=== PATIENT | female | born 1940 | race Caucasian/White ===

== ENCOUNTER 2016-10-23 17:40 | Emergency (ER) | payer MEDICARE, OTHER ==
[~2016-10-23] VITALS: Ht 154.9 cm; Wt 100.0 kg
[~2016-10-23 17:40] MED LIST: ASPI81TA2 PO; ATOR40TA64 PO; BUME1TAB17 PO; CITA20TA9 PO; GLYB1TAB3 PO; INSU100V8 SQ; LABE100T PO; LABE200T PO; LOSA1TAB56 PO; POTA-12 PO
--- OUTSIDE RECORDS SUMMARY | 2016-10-23 17:43 | XMS REPORT | Continuity of Care Document ---
Author Author [facility], [employer] Organization [facility] Address Unknown Phone Unavailable Allergies Active Description Code Type Severity Reaction Onset Reported/Identified Relationship to Patient Clinical Status Yes amlodipine [id number] Drug Allergy Unknown N/A 10/18/2012 Yes codeine [id number] Drug Allergy Unknown N/A 10/18/2012 Medications Problems Date Dx Coded Attending Type Code Diagnosis Diagnosed By 10/18/2012 Ot 793.89 02/26/2014 SALOMON GONZALEZ MD 455.3 EXT HEMORRHOID W/O COMPL 02/26/2014 SALOMON GONZALEZ MD 562.10 DIVERTICULO COLON NO HEM 02/26/2014 SALOMON GONZALEZ MD V76.51 SCREENING MAL ALPHONSE COLON 11/03/2014 Ot 793.81 11/03/2014 Ot V76.12 11/03/2014 Ot 793.81 11/06/2014 Ot 793.81 11/06/2014 Ot V76.12 11/06/2014 Ot 793.81 11/28/2014 Jamilah Gonzalez Ot 611.79 11/28/2014 Jamilah Gonzalez Ot V76.12 Procedures Code Description Performed By Performed On G0121 COLON CA SCRN NOT HI RSK IND SALOMON GONZALEZ MD 02/26/2014 J3010 FENTANYL CITRATE INJECITON SALOMON GONZALEZ MD 02/26/2014 Results Encounters ACCT No. Visit Date/Time Discharge Status Pt. Type Provider Facility Loc./Unit Complaint [id number] 02/26/2014 07:15:00 02/26/2014 10:13:00 DIS Outpatient SALOMON GONZALEZ MD [facility] [place]
[2016-10-23 17:50] VITALS: Ht 154.9 cm; Wt 100.0 kg
[2016-10-23] MEDS ORDERED: METF500T4 PO (17:55)
[2016-10-23] MEDS ORDERED: LABE300T PO (17:56)
[2016-10-23] MEDS ORDERED: POTA-12 PO (17:58)
[2016-10-23] MEDS ORDERED: BUME1TAB17 PO (17:59)
--- NOTE | 2016-10-23 18:06 | NUR ---
PROVIDER ENMANUEL GR IN ROOM W/ PT.
[2016-10-23] MEDS ORDERED: INSU3INS3 SQ (18:07)
--- NOTE | 2016-10-23 18:07 | ERPDOC ---
Departure Disposition Decision Date: Oct 23, 2016 Disposition Decision Time: 19:55 Disposition: 01 DISCHARGED HOME, SELF-CARE Impression Impression Impression: Primary Impression: Closed left humeral fracture Encounter type: initial encounter Humerus Location: surgical neck Fracture morphology: unspecified fracture morphology Fracture alignment: displaced Qualified Codes: S42.212A - Unspecified displaced fracture of surgical neck of left humerus, initial encounter for closed fracture Additional Impressions: Nasal bone fracture Encounter type: initial encounter Fracture type: closed Qualified Codes: S02.2XXA - Fracture of nasal bones, initial encounter for closed fracture Head injury Encounter type: initial encounter Qualified Codes: S09.90XA - Unspecified injury of head, initial encounter Fall Encounter type: initial encounter Qualified Codes: W19.XXXA - Unspecified fall, initial encounter Severity: Moderate Condition: Improved Seen By: Mid-level only Referrals: TITI HONEYCUTT DO (Family) JAXON SARMIENTO MD Patient Instructions: Head Injury (ED), Nasal Fracture (ED), Proximal Humerus Fracture (ED) Problems/Meds/Labs Reviewed?: Yes Medications reviewed and manag: Yes Additional Instructions: Wear shoulder immobilizer as instructed. You may take norco 5/325mg, 1-2 tabs every 4-6 hours as needed for pain. Ice upper left arm as instructed. Call Dr. Sarmiento's office in the morning and let them know we spoke with him and he was to set up an appointment in [place] with Dr. Arcadio Mejia for you. Follow with an ENT of your choice in 2 weeks for follow up on nasal bone fracture. Follow treatment plan. Follow up care ordered?: Yes Mental Status: Alert, Oriented Scripts Hydrocodone/Acetaminophen ([place] 5-325 Tablet) 5-325 Tablet 1-2 TAB PO Q4-6HPRN Y for PAIN, #30 TAB Prov: GENESIS LYON UTILITY BILL COMPLAINTS INVESTIGATOR 10/23/16 HPI - Fall/Injury General Stated Complaint: FALL Time Seen by Provider: 18:06 Source: patient HPI - Fall/Injury Initial Comments 75 YO F brought to ED via EMS after tripping and falling in parking lot. Patient says she was trying to show daughter how to jump start a car when she tripped over parking lot bumper. Patient says she fell forward striking forehead /face and striking left shoulder. Patient having left shoulder pain, facial contusions and nosebleed with fall. Patient denies LOC, dizziness, neck/back pain or other injuries. Pain Scale: Now: 7/10 (left shoulder) Injuries/Pain Location: head, upper extremity Context: tripped Loss of Consciousness: no loss of consciousness Associated Symptoms: DENIES: abdominal pain, chest pain, confusion, dizziness, lightheadedness, muscle spasms, nausea/vomiting, neck pain, ringing in ears, seizures, shortness of breath, slurred speech, vision changes Allergies: Coded Allergies: codeine (Verified Allergy, Unknown, 07/20/15) Past History Patient Surgical History Rt knee arthroscopy - lat/med meniscectomy May, 2004 Colonoscopy - December, Right lumpectomy 1967 - benign calcium deposit removed from left breast (around 2004) Hernia repair -1967 Hysterectomy at age 34 Appendectomy age 15 Tonsillectomy age 4 1945 Past Medical History Metabolic: diabetes, hypertension Cardiac: CAD Respiratory: pneumonia, DENIES: asthma Female: DENIES: renal insufficiency Neurological: CVA Musculoskeletal: osteoarthritis Psychological: DENIES: depression Surgical History General: appendix, tonsils Reproductive/: hysterectomy Joint: knee Family History Family PMH: FOUND: hypertension Vaccines Hx Influenza Vaccination: Yes (October 2014 ) Hx Pneumococcal Vaccination: Yes Social History Sexuality: other Current Occupational Status: retired Review of Systems Constitutional Constitutional: DENIES: chills, dizziness, fever, weakness Eyes General: DENIES: erythema, exudate Lids/Accessories: erythema (and ecchymosis), swelling Vision: DENIES: blurring ENMT Ears: DENIES: pain Sinuses: DENIES: congestion, rhinorrhea Mouth/Throat: DENIES: sore throat Cardiovascular Cardiac: DENIES: chest pain, murmur Rhythm/Rate: DENIES: palpitations Pulmonary Respiratory: DENIES: cough, dyspnea GI Upper Abdomen: DENIES: nausea, pain, vomiting Lower Abdomen: DENIES: diarrhea, pain General: DENIES: dysuria, pain Musculoskeletal General: joint pain, pain, see HPI, tenderness Integumentary Skin: DENIES: itching, rash Neurological General: DENIES: ataxia, change in strength, numbness, paralysis/paresis, weakness Psychiatric Psychiatric: DENIES: anxiety, depression, nervousness Physical Exam General General Nourishment: well nourished, well developed, adult General Body Habitus: well groomed Vitals and Pain First Documented Vital Signs Date Time Temp Pulse Resp B/P Pulse Ox O2 Delivery O2 Flow Rate FiO2 10/23/16 17:50 99.1 65 24 185/90 92 Room Air Weight: Kilograms: Height (feet): 5 Height (inches): 0.00 Triage Pain Scale: Eyes (brief) Eyes Brief: found: EOMI, PERRL Eyes Abnormal Movement: NOT FOUND: nystagmus Eyes Detail : Location: Bilateral Pupils: FOUND 4 mm, FOUND Reactivity Normal Eyelids: FOUND Raccoon eyes, FOUND swelling (under eyes) Comments No entrapment of eyes or deviation of gaze. ENMT Ear/Canal/Mastiod: NOT FOUND: blood, discharge Nose: FOUND: bleeding, other (swelling and ecchymosis over nasal bone), NOT FOUND: septal defect, septal hematoma Mouth/Dental/Tongue: FOUND: mucosa moist, NOT FOUND: loose teeth, tender teeth Pharynx: NOT FOUND: displacement, posterior drainage, uvular deviation Jaw: NOT FOUND: tenderness, trismus Face: NOT FOUND: sinus tenderness Head: symmetric Scalp: NOT FOUND: Claros's sign, abrasion, contusion, erythema, laceration Forehead: contusion (medial forehead with abrasion) Neck (brief) Neck: FOUND: trachea midline, NOT FOUND: adenopathy, tenderness, thyromegaly Respiratory (brief) Respiratory: FOUND: clear all hunter, equal bilaterally, symmetrical Cardiovascular (brief) Cardiac: FOUND: regular rate, regular rhythm Musculoskeletal Joint #1: Side: Left Joint: shoulder Joint Findings: FOUND: ROM limited (due to pain), pain (pain over AC joint and proximal humerus) Comments Patient has cap refill <3 seconds in finger of left hand with good sensation to distal finger tips. Joint #2: Side: Left Joint: elbow, wrist, hip, knee, ankle Joint Findings: NOT FOUND: deformity, discoloration, instability, pain, swelling Joint #3: Side: Right Joint: shoulder, elbow, wrist, hip, knee, ankle Joint Findings: NOT FOUND: deformity, discoloration, instability, pain, swelling Back: NOT FOUND: spine point tenderness, tenderness Integumentary (brief) Integumentary Brief: FOUND: dry, pink, warm Neurologic Mental Status: FOUND: alert, oriented Motor : Motor Side: bilateral Motor Location: printer apprentice strength Motor Degree: 5 Sensation: FOUND: soft touch intact x4 ext Psychiatric (brief) Psychiatric Brief: FOUND: normal affect Differential Diagnoses Considering: Concussion, Contusion, Epidural Hematoma, Dislocation, Fracture, Sprain, Strain, Subdural Hematoma Progress Results/Orders Orders Procedure Category Date Status Time Iv Lock (Ed Only) EDM 10/23/16 Transmitted 18:14 Morphine Sulfate PHA 10/23/16 Complete (Morphine) 18:15 Ondansetron Inj PHA 10/23/16 Complete (Zofran) 18:15 Ct Head W/O Contrast CT 10/23/[address] Maxillofacial W/O CT 10/23/16 Resulted Contrast Shoulder Left 2-3 RAD 10/23/16 Resulted Views Morphine Sulfate PHA 10/23/16 Complete (Morphine) 20:00 Premade Splint EDM 10/23/16 Transmitted 19:57 Hydrocodone/Apap PHA 10/23/16 Complete 5/325 Prepack ([place] 5 20:00 Medications Current ED Medications Morphine Sulfate (Morphine) 4 mg O ONCE IV Last administered on 10/23/16 20:06 ; Start 10/23/16 at 18:15; Stop 10/23/16 at 18:16; Status DC Ondansetron HCl (Zofran) 4 mg O ONCE IV Last administered on 10/23/16 18:48; Start 10/23/16 at 18:15; Stop 10/23/16 at 18:16; Status DC Morphine Sulfate (Morphine) 4 mg O ONCE IV Last administered on 10/23/16 18:50 ; Start 10/23/16 at 20:00; Stop 10/23/16 at 20:01; Status DC Acetaminophen/ Hydrocodone Bitart (NORCO 5 (PrePack)) 1 pack O ONCE SENT HOME Last administered on 10/23/16 20:30; Start 10/23/16 at 20:00; Stop 10/23/16 at 20: 01; Status DC Progress Progress Patient reports improvement in pain after morphine. States pain is well controlled at this time. Declines additional pain medication. I discussed CT and x-ray results with patient and her daughter. Patient declines antibiotic for nasal bone fracture. I discussed conversation I had with Dr. Sarmiento with patient and her daughter. Patient and her daughter verbalized understanding of treatment plan, follow up in the morning with Dr. Sarmiento's office and return precautions. I discussed with patient and her daughter that patient's eyes most likely will swell shut due to nasal bone fracture and contusion to forehead. Daughter states she will stay with patient to assist her as needed. Consult/PCP Consult/PCP : Physician Contacted: Dr. Sarmiento Time Called: 19:41 Type of discussion: Phone Consult/PCP Discussion Details I discussed patient's HPI, PMH, x-rays and that patient is neurovascularly intact with Dr. Sarmiento. Dr. Sarmiento will look at x-ray and call back. Dr. Sarmiento said patient should be placed in a shoulder immobilizer and to call his office tomorrow he will make an appointment with Landry Mejia in [place] for patient. Xray Xray : Xray: Shoulder L (displaced proximal humeral fracture( Dr. Coker)) CT CT #1: CT: Head no contrast (no intrcranial hemorrhage. Large frontal extracranial hematoma) Interpretation: Faxed Report CT #2: CT: Other (maxillofacial) Interpretation: Abnormal (nasal bone fracture), Faxed Report GENESIS LYON UTILITY BILL COMPLAINTS INVESTIGATOR Oct 23, 2016 18:07
[2016-10-23] MEDS ORDERED: CHOL100092 PO (18:08)
[2016-10-23] MEDS ORDERED: ASCO10007 PO (18:08)
[2016-10-23] MEDS ORDERED: VITA80008 PO (18:09)
[2016-10-23] MEDS ORDERED: PLEXUS SUPPLEMENTS PO (18:13)
[2016-10-23] MEDS ORDERED: ONDANSETRON 4mg/2ml INJECTION IV ONE (18:15)
[2016-10-23] MEDS ORDERED: MORPHINE SULFATE 4 MG SYRINGE IV ONE ×2 (18:15→20:00)
--- OUTSIDE RECORDS SUMMARY | 2016-10-23 18:25 | XMS REPORT | Continuity of Care Document ---
Author Author [facility], [employer] Organization [facility] Address Unknown Phone Unavailable Allergies Active Description Code Type Severity Reaction Onset Reported/Identified Relationship to Patient Clinical Status Yes amlodipine [id number] Drug Allergy Unknown N/A 10/18/2012 Yes codeine [id number] Drug Allergy Unknown N/A 10/18/2012 Medications Problems [...] Status Pt. Type Provider Facility Loc./Unit Complaint [id number] 02/26/2014 07:15:00 02/26/2014 10:13:00 DIS Outpatient SALOMON GONZALEZ MD [facility] [place]
--- NOTE | 2016-10-23 18:50 | NUR ---
XRAY PT GONE TO XRAY VIA COT.
--- NOTE | 2016-10-23 19:20 | NUR ---
XRAY PT BACK FROM XRAY VIA CART.
[2016-10-23 19:40] VITALS: TEMP 99.1
[2016-10-23] MEDS ORDERED: HYDROCODONE/APAP 5/325 (PrePack) SENT HOME ONE (20:00)
[2016-10-23] MEDS ORDERED: HYDR-4246 PO (20:04)
[2016-10-23 20:38] VITALS: BP 141/61; PULSE 68; RESP 20; O2SAT 93
--- NOTE | 2016-10-23 20:38 | NUR ---
DISCHARGE PT GIVEN INSTRUCTIONS FOR NASAL FX HEADINJURY AND SHOULDER FX W/ RX AND TAKE HOME PREPACK OF NORCO 5. PT VERBALIZED UNDERSTANDING AND SIGNED FORM W/ PAIN 12/24. PT LEFT ER ALERT, VS CHARTED IN NO ACUTE DISTRESS AMBUALTORY TO WHEELCHAIR AND P.O.V. W/O CHANGE.
--- NOTE | 2016-10-23 22:06 | DI ---
Indication: ITS.REASON: fell, struck head and face PROCEDURE: CT HEAD W/O CONTRAST: Encounter: Initial Comparison: None Technique: Axial CT images through the head were performed without contrast. Iterative Reconstruction dose reducing technique was utilized. FINDINGS: The ventricles are of normal size, shape, and configuration for the patient's age. There is no evidence of acute intracranial hemorrhage, midline displacement, or mass effect. There are scattered areas of low attenuation in the white matter which most likely represent changes of chronic microvascular ischemia. The CT attenuation of the brain parenchyma is otherwise normal within the cerebellum, brain stem, and cerebral hemispheres. The tympanic cavities and mastoid air cells are free of appreciable disease. Displaced nasal arch fractures. Very large frontal scalp hematoma and laceration. IMPRESSION: Nasal arch fractures. No acute intracranial hemorrhage. There is a preliminary report by [facility]. .
--- NOTE | 2016-10-23 22:08 | DI ---
Indication: ITS.REASON: struck face with fall PROCEDURE: CT MAXILLOFACIAL W/O CONTRAST: Encounter: Initial Comparison: None Technique: Axial noncontrast CT images through the mid face were performed with coronal and sagittal two-dimensional reformats. Automated Exposure Control and Iterative Reconstruction dose reducing techniques were utilized. Findings: Displaced nasal arch fractures. Large frontal scalp hematoma and laceration. No additional acute maxillofacial fracture identified. Impression: Nasal arch fractures. There is a preliminary report by [facility]. .
--- NOTE | 2016-10-23 22:09 | DI ---
Indication: ITS.REASON: fall, pain moving shoulder PROCEDURE: SHOULDER LEFT 2-3 VIEWS: Encounter: Initial Comparison: None Findings: There is a comminuted displaced fracture of the surgical neck of left humerus with fracture lines extending into the greater and lesser tuberosity. No additional acute fracture or dislocation seen. Impression: Closed posttraumatic fractures of the left humeral head and neck. .
== END 2016-10-23 20:38 | disposition home or self-care (01) ==
LOC: ED 17:40
DX: S42.212A Unspecified displaced fracture of surgical neck of left humerus, initial encounter for closed fracture (principal); S02.2XXA Fracture of nasal bones, initial encounter for closed fracture; S00.83XA Contusion of other part of head, initial encounter; W01.0XXA Fall on same level from slipping, tripping and stumbling without subsequent striking against object, initial encounter; Y93.89 Activity, other specified; Y92.481 Parking lot as the place of occurrence of the external cause; Y99.8 Other external cause status
CPT/HCPCS: 70450; 70486; 73030; 96374; 96375; 96376; 99284; J2405; L3650

== ENCOUNTER → 2016-11-17 | Outpatient (CLI) | payer MEDICARE, OTHER ==
[~2016-11-17] MED LIST changes: +ASCO10007 PO; +CHOL100092 PO; -GLYB1TAB3 PO; +HYDR-4246 PO; -INSU100V8 SQ; +INSU3INS3 SQ; -LABE100T PO; -LABE200T PO; +LABE300T PO; +METF500T4 PO; +PLEXUS SUPPLEMENTS PO; +VITA80008 PO
[2016-11-17 11:57] LABS: BLOOD, URINE NEGATIVE (NEGATIVE); COLOR,URINE YELLOW (YELLOW); LEUKOCYTE ESTERASE ,URINE NEGATIVE (NEGATIVE); NITRITE,URINE NEGATIVE (NEGATIVE); UROBILINOGEN,URINE 0.2 EU/DL (NORMAL)
== END ==
LOC: LABN.BH 11:45
PROVIDERS: ATTEND Internal Medicine
DX: R50.9 Fever, unspecified (principal)
CPT/HCPCS: 81003; 87086

== ENCOUNTER → 2016-12-01 | Outpatient (CLI) | payer MEDICARE, OTHER ==
[2016-12-01 06:36] LABS: HCT - HEMATOCRIT 29.7 % (36-46); HGB - HEMOGLOBIN 8.8 GM/DL (12-16); MEAN CORPUSCULAR HGB 26.9 UUG (26-34); MEAN CORPUSCULAR HGB CONC(MCHC 29.6 GM/DL (31-37); MEAN CORPUSCULAR VOLUME 90.8 UM3 (80-100); MEAN PLATELET VOLUME 9.4 UM3 (9.4-12.4); RED BLOOD COUNT 3.27 M/MM3 (4.00-5.20)
[2016-12-01 06:47] LABS: ANION GAP 13 MEQ/L (5-15); BUN/CREATININE RATIO 31 RATIO (6-26); CALCIUM 9.4 MG/DL (8.4-10.2); CHLORIDE 103 MEQ/L (98-107); CO2 - CARBON DIOXIDE 23 MEQ/L (22-30); CREATININE 0.7 MG/DL (0.7-1.2); GLOMERULAR FILTRATION RATE 81; GLUCOSE 131 MG/DL (65-110); SODIUM 139 MEQ/L (134-144)
[2016-12-01 07:00] LABS: BAND NEUTROPHILS # 0.2 T/MM3; EOSINOPHILS # (MANUAL) 0.2 T/MM3 (0-0.5); LYMPHOCYTES # (MANUAL) 2.8 T/MM3 (1-4.8); NEUTROPHILS #(MANUAL)-ABSOLUTE 2.8 T/MM3 (1.8-7.7); TOTAL CELLS COUNTED 100 %
[2016-12-01 07:01] LABS: POIKILOCYTOSIS 1+
== END ==
LOC: LABNH.BH 00:40
PROVIDERS: ATTEND Internal Medicine
DX: I82.401 Acute embolism and thrombosis of unspecified deep veins of right lower extremity (principal)
CPT/HCPCS: 36415; 80048; 85007; 85027; P9604

== ENCOUNTER 2017-05-07 11:47 | Inpatient (IN) ==
[2017-05-07] MEDS ORDERED: ONDANSETRON 4 MG/2 ML INJECTION IVP ONE (11:59)
[2017-05-07] MEDS ORDERED: FentaNYL 100 MCG/2 ML INJECTION IVP ONE (11:59)
--- NOTE | 2017-05-07 12:09 | Emergency Department Report ---
Fall HPI - General Chief Complaint: Fall Stated Complaint: fall Time Seen by Provider: 05/07/17 11:58 Source: patient Mode of arrival: EMS Limitations: no limitations - History of Present Illness HPI Narrative: Pt presents after walking into [employer] when her knee "gave out" which she states happens quite frequently only this time she felt a pop and has severe pain. Pt reports landing with her left leg underneath her,. Denies striking her head or neck, or back pain. MD complaint: fall Onset (ago): minute(s) Fall from: standing Fall witnessed: yes, by bystander Place fall occurred: other Loss of consciousness: none Prolonged down time: no Symptoms prior to fall: none Context: other (knee "gave out") Location of injury: other Location of injury - extremities: Left: knee (swelling and pain) Severity: moderate Associated symptoms (after fall): denies - Related Data Home Medications Medication Instructions Recorded Confirmed Aspirin 81 mg PO HS #0 07/20/15 05/07/17 Atorvastatin Calcium 40 mg PO HS #0 07/20/15 05/07/17 Citalopram Hydrobromide 20 mg PO DAILY #0 07/20/15 05/07/17 [Citalopram HBr] Insulin Glargine,Hum.rec.anlog 55 unit SQ HS #0 10/23/16 05/07/17 [Lantus Solostar] Labetalol HCl 300 mg PO BID #0 10/23/16 05/07/17 Metformin HCl 1,000 mg PO BIDWM #0 10/23/16 05/07/17 Potassium Chloride 10 mg PO DAILY #0 10/23/16 05/07/17 Furosemide [Lasix] 40 mg PO DAILY 03/15/17 05/07/17 Losartan [Cozaar] 100 mg PO DAILY 03/15/17 05/07/17 Rivaroxaban [Xarelto] 20 mg PO DAILY 03/15/17 05/07/17 APAP/Diphenhydramine 500/25 2 tab PO HS 05/07/17 05/07/17 [Tylenol Pm] Insulin Aspart [NovoLOG] 10 unit SQ TIDWM 05/07/17 05/07/17 Oxycodone/Acetaminophen 5/325 1 tab PO Q4HR PRN 05/07/17 05/07/17 [Percocet 5/325] Tramadol [Ultram] 50 mg PO Q4-6HR PRN 05/07/17 05/07/17 Ubidecarenone [Coenzyme Q10] 100 mg PO DAILY 05/07/17 05/07/17 Allergies Allergy/AdvReac Type Severity Reaction Status Date / Time codeine Allergy Unknown Light-Heade Verified 03/15/17 09:59 dness Review of Systems All systems: reviewed and negative except as stated Constitutional: Denies: fever, chills Cardiovascular: Denies: chest pain Respiratory: Denies: cough Gastrointestinal: Denies: nausea, vomiting Musculoskeletal: Reports: other (left knee pain) PFSH Patient Stated Medical History Transient Ischemic Attacks ( Yes TIA) Cataracts Yes: Both eyes Hearing Loss Yes: Both ears Myocardial Infarction Yes Pneumonia Yes Diabetes Mellitus Type 2 Yes Gastroesophageal Reflux Yes Disease Hiatal Hernia Yes Hx Kidney Stones Yes Hx Urinary Tract Infection Yes Clotting Problems Yes: Only with surgery Osteoarthritis Yes Depression Yes Post Menopausal Yes Now No Surgical History: Left shoulder repair - Social History Smoking status: Never smoker Physical Exam - Limitations Limitations: no limitations - General General appearance: alert, in no apparent distress (with movement of extremity) - Normal Exams: Head:: Normocephalic without trauma Eyes:: Pupils are PERRLA w/ EOMI Neck:: Full range of motion, without adenopathy Chest/Respirations:: Clear all hunter, with good airflow, and symmetry bilaterally Cardiovascular:: Regular rate and rhythm, without murmur or gallop, Pulses 2+ all extremities Abdomen:: Bowel sounds positive, soft, non-tender, non-distended Integumentary:: No rashes Neurological:: Patient is alert, and oriented Psychiatric:: Patient exhibits, appropriate attention, emotion and affect - Expanded Lower Extremity Exam Knee exam: Present: tenderness, swelling. Absent: normal inspection, full ROM Course - Consultations Consultation #1: Lin Time: 14:50 Consultation #2: Calvin Time: 15:10 Vital Signs Temperature 98.4 F 05/07/17 11:47 Respiratory Rate 20 05/07/17 11:47 Temperature 98.4 F 05/07/17 11:47 Pulse Rate 85 05/07/17 15:30 Respiratory Rate 20 05/07/17 14:59 Blood Pressure 156/69 H 05/07/17 15:30 Pulse Oximetry 99 05/07/17 15:30 Fall - MDM Narrative Medical decision making narrative: Xray reveals probable distal femur fracture, confirmed with CT and Vrad read. Ortho notified will admit to hospitalist. Pt is on Xarelto and will not have surgery for at least 3 days. Labs obtained and reviewed. Pain well controlled at this time. Will place immobilizer as directed by ortho - Differential Diagnosis Likely: compression fracture (knee dislocation, pateller fracture, tibial plateau fracture), concussion with loss of consciousness - Lab Data Attestation: I reviewed the patient's lab results. Result diagrams: 05/07/17 12:19 05/07/17 12:19 Lab Results 05/07/17 05/07/17 Range/Units 12:19 12:19 WBC 9.6 (4.5-11.0) T/MM3 RBC 3.90 L (4.00-5.20) M/MM3 Hgb 10.7 L (12-16) GM/DL Hct 34.0 L (36-46) % MCV 87.2 (80-100) UM3 MCH 27.4 (26-34) UUG MCHC 31.5 (31-37) GM/DL RDW Std Deviation 45.8 (36.9-50.2) FL Plt Count 297 (130-400) T/MM3 MPV 10.5 (9.4-12.4) UM3 Immature Gran % (Auto) 0.4 (0.0-0.5) % Neut % (Auto) 82.1 H (33-66) % Lymph % (Auto) 10.7 L (23-45) % Cascade % (Auto) 4.8 (0-9.0) % Eos % (Auto) 1.8 (0-4) % Baso % (Auto) 0.2 (0-2) % Neut # (Auto) 7.9 H (1.8-7.7) T/MM3 Lymph # (Auto) 1.0 (1-4.8) T/MM3 Cascade # (Auto) 0.5 (0-0.8) T/MM3 Eos # (Auto) 0.2 (0-0.5) T/MM3 Baso # (Auto) 0.0 (0-0.2) T/MM3 Abs Immat Gran (auto) 0.04 H (0.00-0.03) T/MM3 Turbidity < 20 (0-20) Sodium 144 (134-144) MEQ/L Potassium 4.7 (3.6-5) MEQ/L Chloride 104 (98-107) MEQ/L Carbon Dioxide 26 (22-30) MEQ/L Anion Gap 14 (5-15) MEQ/L BUN 24.0 H (7-17) MG/DL Creatinine 0.7 (0.7-1.2) MG/DL GFR Calculation 81 BUN/Creatinine Ratio 34 H (6-26) RATIO Glucose 176 H (65-110) MG/DL Calculated Osmolality 285 H (261-280) MOSM/KG Calcium 9.4 (8.4-10.2) MG/DL Total Bilirubin 0.50 (0.20-1.30) MG/DL Icterus Index < 2 (0-7) AST 22 (14-36) U/L ALT 36 (9-52) U/L Alkaline Phosphatase 103 (38-126) U/L Total Protein 7.2 (6.3-8.2) G/DL Albumin 3.8 (3.5-5.0) G/DL Globulin 3.4 (2.4-3.6) G/DL Albumin/Globulin Ratio 1.1 (1.1-2.2) RATIO Specimen Hemolysis < 15 (0-25) - Radiology Data Attestation: I reviewed the patient's radiology results. Review per Vrad confirmed with CT Disposition Clinical Impression: Femur fracture, left Qualifiers: Encounter type: initial encounter Femur location: distal epiphysis Fracture type: closed Disposition: 02 To [facility] [place] [place] Acute Care Condition: Improved Time of Disposition: 15:39 - Seen By: midlevel
[2017-05-07] MEDS: SALINE FLUSH 10ml SYRINGE IVF PRN ×2 (12:23→21:53)
[2017-05-07] MEDS ORDERED: HYDROMORPHONE 2 MG/ML INJECTION IVP ONE (13:10)
--- NOTE | 2017-05-07 15:49 | History & Physical Report ---
<Kiley Mcnulty - Last Filed: 05/07/17 16:23> History of Present Illness Date: 05/07/17 Chief complaint: knee gave out HPI: Shantal Ayers is a 76 year old woman who was walking outside of [employer] when her left knee gave out, as it frequently does. In fact, she's fallen a number of times. After her knee gave out, she fell to the ground, striking her kneecap on the sidewalk. She felt it pop and wasn't able to get back up to bear weight. She reports that this is an isolated injury and she did not hit her head or lose consciousness. She denies any dizziness/weakness, syncope, chest pain, or dyspnea prior to the fall. She's been in her typical state of health and denies recent fevers/chills, cough/congestion, dysphagia, acute vision changes, nausea/ vomiting, UTI symptoms (though has a hx of recurrent UTIs), abdominal pain, diarrhea or constipation. She has chronic left arm/hand weakness, and it's not certain if this is due to a previous stroke or her history of left humerus fracture in October 2016. 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 After her fall, she was taken to [facility], where she was diagnosed with a left distal femur fracture. Labs showed mild normocytic anemia with hgb of 10.7. Chemistries were unremarkable with the exception of hyperglycemia and mildly elevated BUN/creatinine ratio. Dr. Wan was consulted, and the hospitalist service was contacted for inpatient admission. LOS is expected to be 2 overnights, as she will require surgical fixation of her fracture, pain control , and management of her comorbid conditions of DVT/PE on Xarelto; CAD; CHF; DM2 ; hx of TIA. Review of Systems All systems PM: 10-point ROS was reviewed, no additional remarkable complaints except - Constitutional Constitutional: Present: weight loss (16 lbs). Absent: chills, fever(s) - EENMT Balance: Absent: vertigo Mouth/Throat: Absent: sore throat, changes in swallowing - Cardiovascular Cardiovascular: Absent: chest pain, palpitations Vascular: Absent: pedal edema - Respiratory Respiratory: Absent: cough, dyspnea - Gastrointestinal Gastrointestinal: Absent: abdominal pain, constipation, diarrhea, hematochezia, nausea, vomiting - Genitourinary Genitourinary: Absent: dysuria - Musculoskeletal Musculoskeletal: Present: abnormal gait - Integumentary/Breasts Integumentary: Present: other (abrasion/contusion to left knee). Absent: rash - Neurological Neurological: Present: abnormal gait, frequent falls. 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 Left humerus ORIF 11/01/16. 2. Cardiac catheterization 04/01 - no stents; mild multivessel disease. 3. Echo 04/01/15 - EF 56%; moderate mitral stenosis and mild to moderate mitral regurgitation; mild tricuspid regurgitation; moderate pulmonary hypertension. 4. Hysterectomy 1974. 5. Breast biopsy 1967 - benign. 6. Appendectomy 1955. 7. T&A Family History: Mother - diabetes & CVA - Social History Smoking status: Never smoker Substance use type: does not use Alcohol intake frequency: does not drink Social history: PCP: Dr. Nelson CV: Dr. Erwin Uro: [place] Neuro: Tone Medications Home Medications Medication Instructions Recorded Confirmed Type Aspirin 81 mg PO HS #0 07/20/15 05/07/17 History Atorvastatin Calcium 40 mg PO HS #0 07/20/15 05/07/17 History Citalopram Hydrobromide 20 mg PO DAILY #0 07/20/15 05/07/17 History [Citalopram HBr] Insulin Glargine,Hum.rec.anlog 55 unit SQ HS #0 10/23/16 05/07/17 History [Lantus Solostar] Labetalol HCl 300 mg PO BID #0 10/23/16 05/07/17 History Metformin HCl 1,000 mg PO BIDWM #0 10/23/16 05/07/17 History Potassium Chloride 10 mg PO DAILY #0 10/23/16 05/07/17 History Furosemide [Lasix] 40 mg PO DAILY 03/15/17 05/07/17 History Losartan [Cozaar] 100 mg PO DAILY 03/15/17 05/07/17 History Rivaroxaban [Xarelto] 20 mg PO DAILY 03/15/17 05/07/17 History APAP/Diphenhydramine 500/25 2 tab PO HS 05/07/17 05/07/17 History [Tylenol Pm] Insulin Aspart [NovoLOG] 10 unit SQ TIDWM 05/07/17 05/07/17 History Oxycodone/Acetaminophen 5/325 1 tab PO Q4HR PRN 05/07/17 05/07/17 History [Percocet 5/325] Tramadol [Ultram] 50 mg PO Q4-6HR PRN 05/07/17 05/07/17 History Ubidecarenone [Coenzyme Q10] 100 mg PO DAILY 05/07/17 05/07/17 History Allergies Allergy/AdvReac Type Severity Reaction Status Date / Time codeine Allergy Unknown Light-Heade Verified 03/15/17 09:59 dness Exam Vital Signs: Temperature 98.4 F 05/07/17 11:47 Pulse Rate 85 05/07/17 15:30 Respiratory Rate 20 05/07/17 14:59 Blood Pressure 156/69 H 05/07/17 15:30 Pulse Oximetry 99 05/07/17 15:30 Height/Weight/BMI: Height 1.52 m Weight 88.5 kg - Constitutional Present: no acute distress, well nourished, well developed, obese - Routine HEENT Exam Head: Present: normocephalic Eye: Absent: conjunctival icterus, scleral injection ENT: Present: oropharynx clear - Routine Neck Exam Present: supple - Routine Respiratory Exam Present: CTA bilaterally - Routine Cardiovascular Exam Present: RRR, S1, S2 - Routine Abdominal Exam Present: soft, normoactive bowel sounds, non distended, non tender - Routine Extremities Exam Present: no edema, pulses intact, normal capillary refill, joint swelling (left knee) Comments: left knee is held in flexion - Routine Skin Exam Present: intact, dry, warm, wounds (contusion/abrasion to left knee) - Routine Neurological Exam Present: alert, oriented X3, CN II-XII intact (grossly), normal speech - Routine Psychiatric Exam Present: normal affect, normal thought process, cooperative Results - Labs CBC & Chem 7: 05/07/17 12:19 05/07/17 12:19 Assessment and Plan (1) Femur fracture, left Current visit: Yes Status: Acute DVT Prophylaxis: Lovenox, Xarelto Resuscitation Status: Do Not Resuscitate Assessment and Plan: IMPRESSION Left distal femur fracture Mild normocytic anemia, POA DM2 insulin requiring, with diabetic amyotrophy & proximal neuropathy -hgb A1c was 7.8% on 03/17/17 CHF - systolic, valvular -Echo 04/01/15 - EF 56%; moderate mitral stenosis and mild to moderate mitral regurgitation; mild tricuspid regurgitation; moderate pulmonary HTN CAD Rt DVT; PE - on Xarelto since Nov, 2016 TIA HTN Recurrent UTI Left retinal artery occlusion Depression Mitral valve disorder Obesity, BMI 38.6 PLAN Admit, inpatient status, under the hospitalist service. Dr. Wan has been consulted. Per Bashir Thompson PA-C: patient should be on bedrest (unable to tolerate knee immobilizer); ok to give Lovenox in am; type & screen; plan for sx on 05/09/17 at the earliest. Pain control: IV Dilaudid PRN; continue home Percocet & Tramadol PRN. Monitor telemetry; records requested from Dr. Erwin's office. Check EKG and CXR for op. clearance. Resume home medications including diuretics and excluding Xarelto; monitor fluid status carefully. Monitor blood sugars fasting & 2 hours after meals; continue metformin and insulin. Check vitamin B12 and iron studies - suspect she may need blood transfusion with long bone fracture. Insert Rider for comfort since she is on bedrest. Consult PT/OT postop. PPX: Encourage IS. Lovenox 135 mg x1 in the morning of 05/08/17 - after this will need to determine anticoagulation based on surgical plans. Advanced directives: Requests DNR status. Her daughter in [place] is DPOA-HC. Care will be returned to Dr. Nelson post-discharge. Discussed with attending physician, Bashir Thompson, and nursing staff. Clinic records reviewed. Hospital Course Summary Disclaimer: The visit summary below is not to be considered part of the above Progress Note. Hospital Course: 05/07/17 17:12 IMPRESSION Left distal femur fracture Mild normocytic anemia, POA DM2 insulin requiring, with diabetic amyotrophy & proximal neuropathy -hgb A1c was 7.8% on 03/17/17 CHF - systolic, valvular -Echo 04/01/15 - EF 56%; moderate mitral stenosis and mild to moderate mitral regurgitation; mild tricuspid regurgitation; moderate pulmonary HTN CAD Rt DVT; PE - on Xarelto since Nov, 2016 TIA HTN Recurrent UTI Left retinal artery occlusion Depression Mitral valve disorder Obesity, BMI 38.6 PLAN Admit, inpatient status, under the hospitalist service. Dr. Wan has been consulted. Per Bashir Thompson PA-C: patient should be on bedrest (unable to tolerate knee immobilizer); ok to give Lovenox in am; type & screen; plan for sx on 05/09/17 at the earliest. Pain control: IV Dilaudid PRN; continue home Percocet & Tramadol PRN. Monitor telemetry; records requested from Dr. Erwin's office. Check EKG and CXR for op. clearance. Resume home medications including diuretics and excluding Xarelto; monitor fluid status carefully. Monitor blood sugars fasting & 2 hours after meals; continue metformin and insulin. Check vitamin B12 and iron studies - suspect she may need blood transfusion with long bone fracture. Insert Rider for comfort since she is on bedrest. Consult PT/OT postop. PPX: Encourage IS. Lovenox 135 mg x1 in the morning of 05/08/17 - after this will need to determine anticoagulation based on surgical plans. Advanced directives: Requests DNR status. Her daughter in [place] is DPOA-HC. Care will be returned to Dr. Nelson post-discharge. <John Guy - Last Filed: 05/07/17 17:49> History of Present Illness Date: 05/07/17 [facility] Patient Stated Medical History Transient Ischemic Attacks ( Yes TIA) Cataracts Yes: Both eyes Hearing Loss Yes: Both ears Myocardial Infarction Yes Pneumonia Yes Diabetes Mellitus Type 2 Yes Gastroesophageal Reflux Yes Disease Hiatal Hernia Yes Hx Kidney Stones Yes Hx Urinary Tract Infection Yes Clotting Problems Yes: Only with surgery, IN LEG AND PE Osteoarthritis Yes Anesthesia Reactions Yes: HARD TO WAKE UP Blood Transfusions Yes: AFTER HYSTERECTOMY Depression Yes Post Menopausal Yes Exam Vital Signs: Temperature 98.6 F 05/07/17 16:11 Pulse Rate 96 05/07/17 17:17 Respiratory Rate 16 05/07/17 16:11 Blood Pressure 166/71 H 05/07/17 16:11 Pulse Oximetry 91 05/07/17 16:29 Height/Weight/BMI: Height 1.52 m Weight 89.6 kg Body Mass Index 38.5 Results - Labs CBC & Chem 7: 05/07/17 12:19 05/07/17 12:19 Assessment and Plan Assessment and Plan: 05/07/17 Patient was evaluated by Kiley Mcnulty and myself. Plan was developed in coordination with each other and I'm in agreement with the plan. Patient is a 76-year-old female who felt her knee give out and when she hit the ground on her knee she felt a pop above the kneecap. She was unable to bear weight brought in by EMS. X-ray was obtained which showed distal femur fracture. Past medical history medication allergies social history reviewed, please see note above. Assessment and plan also developed conjunction and I'm in agreement. 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 Dr. Wan has been consulted. Per Bashir Thompson PA-C: patient should be on bedrest (unable to tolerate knee immobilizer); ok to give Lovenox in am; type & screen; plan for sx on 05/09/17 at the earliest. Pain control: IV Dilaudid PRN; continue home Percocet & Tramadol PRN. Monitor telemetry; records requested from Dr. Erwin's office. Check EKG and CXR for op. clearance. Resume home medications including diuretics and excluding Xarelto; monitor fluid status carefully. Monitor blood sugars fasting & 2 hours after meals; continue metformin and insulin. Check vitamin B12 and iron studies - suspect she may need blood transfusion with long bone fracture. Insert Rider for comfort since she is on bedrest. Consult PT/OT postop. PPX: Encourage IS. Lovenox 135 mg x1 in the morning of 05/08/17 - after this will need to determine anticoagulation based on surgical plans. Advanced directives: Requests DNR status. Her daughter in [place] is DPOA-HC. Care will be returned to Dr. Nelson post-discharge. John Guy M.D. Hospital Course Summary Disclaimer: The visit summary below is not to be considered part of the above Progress Note.
[2017-05-07 16:13] VITALS: BMI 38.5
[2017-05-07] MEDS ORDERED: HYDROMORPHONE 2 MG/ML INJECTION IVP PRN (16:40)
[2017-05-07] MEDS ORDERED: TRAMADOL 50 MG TABLET PO PRN (16:42)
[2017-05-07] MEDS ORDERED: BISACODYL 10 MG SUPPOSITORY RECTALLY PRN (16:46)
[2017-05-07] MEDS ORDERED: GLUCOSE ORAL GEL 40% 37.5gm PO PRN (16:49)
[2017-05-07] MEDS: Oxycodone/Acetaminophen 5/325 1 TAB PO PRN (17:21)
[2017-05-07] MEDS: INSULIN ASPART 100unit/ml INJECTION SQ SCH (18:28)
[2017-05-07] MEDS: METFORMIN 500 MG TABLET PO SCH (18:28)
--- NOTE | 2017-05-07 20:59 | Orthopedic Consult Note ---
Orthopedic Consultation HPI - Consultation Info Consult Date: 05/09/17 Attending Physician: John Guy MD Consult Reason: fracture - History of Present Illness 76 yo female who fell going into restoration on 05/07/17. Her knee gave out and she fell directly onto the left knee. She felt a pop and had immediate pain. She was unable to ambulate and was [place] [facility] showed a mildly displaced fx of the left femoral diaphysis with extension distally. She has multiple chronic medical problems including MN, PE and hx of DVT for which she is taking Xarelto. She was admitted by the medical service and will tentatively be placed on the surgical schedule for Monday. Review of Systems - Constitutional Constitutional: Absent: chills, fever(s), headache(s), night sweats - EENT Ears, nose, mouth, throat: Present: other (Dry mouth.). Absent: headaches, head injury - Cardiovascular Cardiovascular: Absent: chest pain, palpitations, syncope, dyspnea on exertion - Respiratory Respiratory: Absent: cough, dyspnea - Gastrointestinal Gastrointestinal: Absent: abdominal pain, change in bowel habits - Genitourinary Genitourinary General: Present: other (Previous UTIs requiring IV antibiotics.) . Absent: chills, fever(s) - Musculoskeletal Musculoskeletal: Present: as per HPI, joint pain, other (Left knee has been bad for years. She fell multiple times over the last few days from the knee giving out.) - Integumentary/Breasts Integumentary: Absent: rash, wounds - Neurological Neurological: Present: abnormal gait, frequent falls, sensory deficit (Left little finger after shoulder surgery earlier this year.). Absent: numbness, paralysis/paresis - Hematologic/Lymphatic Hematologic/Lymphatic: Present: easy bleeding (On Xarelto.) [facility] Patient Stated Medical History Transient Ischemic Attacks ( Yes TIA) Cataracts Yes: Both eyes Hearing Loss Yes: Both ears Myocardial Infarction Yes Pneumonia Yes Diabetes Mellitus Type 2 Yes Gastroesophageal Reflux Yes Disease Hiatal Hernia Yes Hx Kidney Stones Yes Hx Urinary Tract Infection Yes Clotting Problems Yes: Only with surgery, IN LEG AND PE Osteoarthritis Yes Anesthesia Reactions Yes: HARD TO WAKE UP Blood Transfusions Yes: AFTER HYSTERECTOMY Depression Yes Post Menopausal Yes Surgical History: 1. Left humerus ORIF 11/01/16. 2. Cardiac catheterization 04/01 - no stents; mild multivessel disease. 3. Echo 04/01/15 - EF 56%; moderate mitral stenosis and mild to moderate mitral regurgitation; mild tricuspid regurgitation; moderate pulmonary hypertension. 4. Hysterectomy 1974. 5. Breast biopsy 1967 - benign. 6. Appendectomy 1955. 7. T&A - Social History Smoking status: Never smoker Medications Home Medications Medication Instructions Recorded Confirmed Type Aspirin 81 mg PO HS #0 07/20/15 05/07/17 History Atorvastatin Calcium 40 mg PO HS #0 07/20/15 05/07/17 History Citalopram Hydrobromide 20 mg PO DAILY #0 07/20/15 05/07/17 History [Citalopram HBr] Insulin Glargine,Hum.rec.anlog 55 unit SQ HS #0 10/23/16 05/07/17 History [Lantus Solostar] Labetalol HCl 300 mg PO BID #0 10/23/16 05/07/17 History Metformin HCl 1,000 mg PO BIDWM #0 10/23/16 05/07/17 History Potassium Chloride 10 mg PO DAILY #0 10/23/16 05/07/17 History Furosemide [Lasix] 40 mg PO DAILY 03/15/17 05/07/17 History Losartan [Cozaar] 100 mg PO DAILY 03/15/17 05/07/17 History Rivaroxaban [Xarelto] 20 mg PO DAILY 03/15/17 05/07/17 History APAP/Diphenhydramine 500/25 2 tab PO HS 05/07/17 05/07/17 History [Tylenol Pm] Insulin Aspart [NovoLOG] 10 unit SQ TIDWM 05/07/17 05/07/17 History Oxycodone/Acetaminophen 5/325 1 tab PO Q4HR PRN 05/07/17 05/07/17 History [Percocet 5/325] Tramadol [Ultram] 50 mg PO Q4-6HR PRN 05/07/17 05/07/17 History Ubidecarenone [Coenzyme Q10] 100 mg PO DAILY 05/07/17 05/07/17 History Allergies Allergy/AdvReac Type Severity Reaction Status Date / Time codeine Allergy Unknown Light-Heade Verified 03/15/17 09:59 dness Orthopedic Exam Vital signs: Temperature 98.6 F 05/07/17 16:11 Pulse Rate 96 05/07/17 17:17 Respiratory Rate 16 05/07/17 16:11 Blood Pressure 166/71 H 05/07/17 16:11 Pulse Oximetry 91 05/07/17 16:29 - Constitutional General Appearance: Present: alert, orientated x3, cooperative, no acute distress, obese - Respiratory Exam Present: non-labored - Cardiovascular Exam Present: pedal pulses intact Capillary Refill: < 2-3 Seconds - Abdominal Exam Present: soft. Absent: tenderness, distended - Extremities Exam Present: pulses intact, normal capillary refill, joint swelling (left knee. ) Comments: Pt is most comfortable with the leg externally rotated and flexed at the knee. Swelling in the thigh and knee is noted. No abrasions or wounds around the knee. - Integumentary Exam Present: pink, warm, dry, other (Scar is intact over the left shoulder.). Absent: rash, lesions - Neurological Exam Present: other (Moves her toes and reports normal sensation to the feet. Has some reduced sensation left 5th finger since her last shoulder surgery. ) - Labs Result Diagrams: 05/09/17 04:15 05/09/17 04:15 Impression and Recommendation (1) Femur fracture, left Current visit: Yes Qualifiers: Encounter type: initial encounter Femur location: distal epiphysis Fracture type: closed Status: Acute Tentative plan is to fix this Monday since she is on a blood thinner. INR is 1.[address] Wan will meet with Shantal later today to discuss the surgical plan. Follow labs. Hgb a little low. Hospitalist to manage medically. Type and screen NEG. Hospital Course Summary Disclaimer: The visit summary below is not to be considered part of the above Progress Note. Hospital Course: 05/07/17 17:12 IMPRESSION Left distal femur fracture Mild normocytic anemia, POA DM2 insulin requiring, with diabetic amyotrophy & proximal neuropathy -hgb A1c was 7.8% on 03/17/17 CHF - systolic, valvular -Echo 04/01/15 - EF 56%; moderate mitral stenosis and mild to moderate mitral regurgitation; mild tricuspid regurgitation; moderate pulmonary HTN CAD Rt DVT; PE - on Xarelto since Nov, 2016 TIA HTN Recurrent UTI Left retinal artery occlusion Depression Mitral valve disorder Obesity, BMI 38.6 PLAN Admit, inpatient status, under the hospitalist service. Dr. Wan has been consulted. Per Bashir Thompson PA-C: patient should be on bedrest (unable to tolerate knee immobilizer); ok to give Lovenox in am; type & screen; plan for sx on 05/09/17 at the earliest. Pain control: IV Dilaudid PRN; continue home Percocet & Tramadol PRN. Monitor telemetry; records requested from Dr. Erwin's office. Check EKG and CXR for op. clearance. Resume home medications including diuretics and excluding Xarelto; monitor fluid status carefully. Monitor blood sugars fasting & 2 hours after meals; continue metformin and insulin. Check vitamin B12 and iron studies - suspect she may need blood transfusion with long bone fracture. Insert Rider for comfort since she is on bedrest. Consult PT/OT postop. PPX: Encourage IS. Lovenox 135 mg x1 in the morning of 05/08/17 - after this will need to determine anticoagulation based on surgical plans. Advanced directives: Requests DNR status. Her daughter in [place] is DPOA-HC. Care will be returned to Dr. Nelson post-discharge.
[2017-05-07] MEDS ORDERED: LABETALOL 100 MG TABLET PO SCH (21:00)
[2017-05-07] MEDS: ATORVASTATIN 40 MG TABLET PO SCH (21:49)
[2017-05-07] MEDS: APAP/DIPHENHYDRAMINE 500 MG/25 MG TABLET PO SCH (21:49)
[2017-05-07] MEDS: SENNA + DOCUSATE TABLET PO SCH (21:50)
[2017-05-07] MEDS: INSULIN ASPART 100unit/ml INJECTION SQ PRN (21:51)
[2017-05-07] MEDS: INSULIN GLARGINE 100unit/ml INJECTION SQ SCH (21:52)
[2017-05-07] MEDS: LABETALOL 100 MG TABLET PO SCH (22:44)
[2017-05-08] MEDS: Oxycodone/Acetaminophen 5/325 1 TAB PO PRN ×2 (00:27→20:35)
[2017-05-08] MEDS: SALINE FLUSH 10ml SYRINGE IVF PRN (08:24)
[2017-05-08] MEDS: INSULIN ASPART 100unit/ml INJECTION SQ SCH ×3 (08:24→18:28)
[2017-05-08] MEDS: CITALOPRAM 20 MG TABLET PO SCH (08:25)
[2017-05-08] MEDS: FUROSEMIDE 40 MG TABLET PO SCH (08:25)
[2017-05-08] MEDS: METFORMIN 500 MG TABLET PO SCH ×2 (08:25→18:28)
[2017-05-08] MEDS: COENZYME Q-10 200mg TABLET PO SCH (08:25)
[2017-05-08] MEDS: SENNA + DOCUSATE TABLET PO SCH ×2 (08:25→20:35)
[2017-05-08] MEDS: LOSARTAN 100 MG TABLET PO SCH ×2 (08:26→20:35)
[2017-05-08] MEDS: LABETALOL 100 MG TABLET PO SCH ×2 (08:26→20:35)
--- NOTE | 2017-05-08 08:33 | CT Scan Report ---
EXAM: CT femur LT wo con LOCATION OF DICTATION: [place] HISTORY: fall pain fracture COMPARISON: No prior studies available for comparison. TECHNIQUE: Multiple contiguous axial images were obtained of the left femur without contrast. Coronal and sagittal reformatted images were utilized. FINDINGS: Minimally displaced mildly comminuted oblique fractures of the distal left femur. The fracture lines extend to the metadiaphysis of the distal left femur. No additional fractures are identified. There is generalized osteopenia. Mild osteoarthrosis of the left hip joint and moderate to marked osteoarthrosis of the left knee joint. The surrounding soft tissues are normal. Mild calcific atherosclerotic disease is noted. IMPRESSION: 1. Minimally displaced mildly comminuted oblique fractures of the distal left femoral metadiaphysis. 2. Generalized osteopenia. 3. Moderate to marked osteoarthrosis of the left knee joint. .
[2017-05-08] MEDS: POLYETHYL GLYCOL 3350 17gm PACKET PO SCH (08:37)
--- NOTE | 2017-05-08 08:37 | XRay Report ---
EXAM: XR knee LT 3V LOCATION OF DICTATION: [place] HISTORY: fall, knee pain COMPARISON: January 16, 2017 FINDINGS: There is normal alignment of the tibiofemoral and patellofemoral joints. There is no dislocation or subluxation. There is an acute minimally displaced oblique fracture involving the distal left femoral metadiaphysis. There is moderate tricompartmental osteoarthrosis about the left knee joint with joint space narrowing, and marginal osteophytes demonstrated. Normal osseous mineralization. Small suprapatellar joint effusion suggested. IMPRESSION: 1. Acute minimally displaced oblique fracture of the distal left femoral metadiaphysis. 2. Moderate tricompartmental osteoarthritis about the left knee joint. 3. Small suprapatellar joint effusion. .
[2017-05-08] MEDS: ONDANSETRON 4 MG/2 ML INJECTION IVP PRN ×2 (13:50→13:51)
--- NOTE | 2017-05-08 17:09 | XRay Report ---
EXAM: XR chest 1V LOCATION OF DICTATION: [place] HISTORY: preop COMPARISON: March 15, 2017 FINDINGS: The heart size is upper limits normal. The mediastinal configuration is within normal limits. There are no consolidating opacities or pleural effusions. There is no pneumothorax. Open reduction internal fixation of the proximal left humerus where there is noted to be a moderately displaced proximal left humeral fracture. IMPRESSION: No acute cardiopulmonary abnormalities demonstrated. Displaced proximal left humeral fracture with internal hardware. .
--- NOTE | 2017-05-08 18:37 | Progress Note ---
- Date 05/08/17 Subjective: F/U: Left distal femur fracture Doing okay today. Pain stable-does hurt with movements. Breathing stable-not congested or SOA. Does use IS. No chest pressure or pain. Denies nausea or ab pain. No f/c. Objective Vital signs: Temperature 99.0 F 05/08/17 15:51 Pulse Rate 77 05/08/17 16:04 Respiratory Rate 14 05/08/17 15:51 Blood Pressure 111/51 05/08/17 15:51 Pulse Oximetry 96 05/08/17 15:51 Height/Weight/BMI: Height 1.52 m Weight 88.9 kg Body Mass Index 38.5 - Constitutional Present: well nourished, well developed, obese, cooperative - Routine HEENT Exam Head: Present: normocephalic, atraumatic Eye: Present: EOMI, PERRL ENT: Present: mucous membranes moist - Routine Respiratory Exam Present: decreased breath sounds. Absent: rales, rhonchi, wheezes, crackles - Routine Cardiovascular Exam Present: RRR, no murmur - Routine Abdominal Exam Present: soft, non distended, non tender. Absent: normoactive bowel sounds ( decreased ) - Routine Extremities Exam Present: no edema, pulses intact. Absent: cyanosis, clubbing Comments: SCD in place - Routine Musculoskeletal Exam Musculoskeletal: Present: no clubbing or cyanosis, normal strength - Routine Skin Exam Present: dry, warm - Routine Neurological Exam Present: alert, oriented X3, CN II-XII intact, vision grossly intact, hearing grossly intact. Absent: motor deficit, altered mental status - Routine Psychiatric Exam Present: normal affect, normal thought process, cooperative, good insight, good judgment Results - Labs CBC & Chem 7: 05/08/17 04:16 05/08/17 04:16 Assessment and Plan (1) Femur fracture, left Current visit: Yes Status: Acute DVT Prophylaxis: SCD's Resuscitation Status: Do Not Resuscitate Assessment and Plan: Assessment Left distal femur fracture Mild normocytic anemia, POA DM2 insulin requiring, with diabetic amyotrophy & proximal neuropathy -hgb A1c was 7.8% on 03/17/17 CHF - systolic, valvular -Echo 04/01/15 - EF 56%; moderate mitral stenosis and mild to moderate mitral regurgitation; mild tricuspid regurgitation; moderate pulmonary HTN CAD Rt DVT; 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 HGB with decreased - likely need transfusion. Recheck CBC in am. Will hold Lovenox for now due to decreased HGB (it was to be given this am, but ordered for tomorrow am). Metabolic Bone Consult placed. Will check Vit D level. Continue pain control. Anticipate surgery tomorrow. Medically stable at this time. - Time spent with patient Time with patient PN: 25 minutes Hospital Course Summary Disclaimer: The visit summary below is not to be considered part of the above Progress Note. 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 Dr. Wan has been consulted. Per Bashir Thompson PA-C: patient should be on bedrest (unable to tolerate knee immobilizer); ok to give Lovenox in am; type & screen; plan for sx on 05/09/17 at the earliest. Pain control: IV Dilaudid PRN; continue home Percocet & Tramadol PRN. Monitor telemetry; records requested from Dr. Erwin's office. Check EKG and CXR for op. clearance. Resume home medications including diuretics and excluding Xarelto; monitor fluid status carefully. Monitor blood sugars fasting & 2 hours after meals; continue metformin and insulin. Check vitamin B12 and iron studies - suspect she may need blood transfusion with long bone fracture. Insert Rider for comfort since she is on bedrest. Consult PT/OT postop. PPX: Encourage IS. Lovenox 135 mg x1 in the morning of 05/08/17 - after this will need to determine anticoagulation based on surgical plans. Advanced directives: Requests DNR status. Her daughter in [place] is DPOA-HC. Care will be returned to Dr. Nelson post-discharge. 05/08/17 Encourage continued use of IS to help pulmonary toilet. HGB with decreased - likely need transfusion. Recheck CBC in am. Will hold Lovenox for now due to decreased HGB (it was to be given this am, but ordered for tomorrow am). Metabolic Bone Consult placed. Will check Vit D level. Continue pain control. Anticipate surgery tomorrow. Medically stable at this time.
[2017-05-08] MEDS: APAP/DIPHENHYDRAMINE 500 MG/25 MG TABLET PO SCH (20:34)
[2017-05-08] MEDS: ATORVASTATIN 40 MG TABLET PO SCH (20:36)
[2017-05-08] MEDS: INSULIN GLARGINE 100unit/ml INJECTION SQ SCH (20:36)
[2017-05-08] MEDS: INSULIN ASPART 100unit/ml INJECTION SQ PRN ×2 (20:44→20:46)
[2017-05-09] MEDS: SALINE FLUSH 10ml SYRINGE IVF PRN (06:38)
[2017-05-09] MEDS ORDERED: ENOXAPARIN 150 MG/ML INJECTION SQ ONE (07:00)
[2017-05-09] MEDS: INSULIN ASPART 100unit/ml INJECTION SQ SCH ×3 (08:01→16:52)
[2017-05-09] MEDS: SENNA + DOCUSATE TABLET PO SCH ×2 (08:02→21:11)
[2017-05-09] MEDS: POLYETHYL GLYCOL 3350 17gm PACKET PO SCH (08:02)
[2017-05-09] MEDS: COENZYME Q-10 200mg TABLET PO SCH (08:02)
[2017-05-09] MEDS: METFORMIN 500 MG TABLET PO SCH ×2 (08:02→16:52)
[2017-05-09] MEDS: CITALOPRAM 20 MG TABLET PO SCH (08:02)
[2017-05-09] MEDS ORDERED: CEFAZOLIN 1 G INJECTION IVP ONE (08:37)
[2017-05-09] MEDS ORDERED: LR 1,000 ML IV SCH (08:45)
[2017-05-09] MEDS: NS FLUSH BAG 500ml IV PRN (09:09)
--- NOTE | 2017-05-09 09:56 | Anesthesia Preoperative Report ---
Anesthesia Preoperative Record - Date and Time Date: 05/09/17 Preoperative Diagnosis: Femur fracture Proposed Procedure: Left Hip ORIF vs retrograde femur nail NPO Since Date: 05/09/17 NPO Since Time: 00:00 Allergies/Adverse Reactions: Allergies Allergy/AdvReac Type Severity Reaction Status Date / Time codeine Allergy Unknown Light-Heade Verified 03/15/17 09:59 dness - Vital Signs Vital Signs: Temperature 98.6 F 05/09/17 08:05 Pulse Rate 83 05/09/17 08:05 Respiratory Rate 20 05/09/17 08:05 Blood Pressure 130/66 05/09/17 08:05 Pulse Oximetry 97 05/09/17 08:05 Height and Weight: Height 5 ft Weight 89.7 kg Body Mass Index 38.5 - Medications Inpatient Medications: Current Medications Acetaminophen/Diphenhydramine HCl (Tylenol Pm) 2 tab PO HS [facility] Last Admin: 05/08/17 20:34 Dose: 2 tab Atorvastatin Calcium (Lipitor) 40 mg PO HS [facility] Last Admin: 05/08/17 20:36 Dose: 40 mg Bisacodyl (Dulcolax) 10 mg RECTALLY DAILY PRN PRN Reason: Constipation Citalopram Hydrobromide (Celexa) 20 mg PO DAILY [facility] Last Admin: 05/09/17 08:02 Dose: Not Given Coenzyme Q10 (Co Q-10) 100 mg PO DAILY [facility] Last Admin: 05/09/17 08:02 Dose: Not Given Furosemide (Lasix) 40 mg PO DAILY [facility] Last Admin: 05/08/17 08:25 Dose: 40 mg Glucose (Glutose 15) 37.5 gm PO PRN PRN PRN Reason: Hypoglycemia Hydromorphone HCl (Dilaudid) 0.5 mg IVP Q2H PRN PRN Reason: Pain Lactated Ringer's (Lactated Ringers) 1,000 mls @ 50 mls/hr IV .Q20H [facility] Last Admin: 05/09/17 08:36 Dose: 50 mls/hr Insulin Aspart (Novolog) 10 unit SQ TIDWM [facility] Last Admin: 05/09/17 08:01 Dose: Not Given Insulin Aspart (Novolog) 0 unit SQ SS PRN; Protocol PRN Reason: Hyperglycemia Last Admin: 05/08/17 20:46 Dose: 2 unit Insulin Glargine (Lantus) 40 unit SQ HS [facility] Last Admin: 05/08/17 20:36 Dose: 40 unit Labetalol HCl (Normodyne) 300 mg PO BID [facility] Last Admin: 05/08/17 20:35 Dose: 300 mg Losartan Potassium (Cozaar) 100 mg PO HS [facility] Last Admin: 05/08/17 20:35 Dose: 100 mg Magnesium Hydroxide (Mom) 30 ml PO DAILY PRN PRN Reason: Constipation Metformin HCl (Glucophage) 1,000 mg PO BIDWM [facility] Last Admin: 05/09/17 08:02 Dose: Not Given Ondansetron HCl (Zofran) 4 mg IVP Q6H PRN PRN Reason: Nausea &/or vomiting Last Admin: 05/08/17 13:51 Dose: 4 mg Oxycodone/Acetaminophen (Percocet 5/325) 1 - 2 tab PO Q4HR PRN PRN Reason: Pain Last Admin: 05/08/17 20:35 Dose: 2 tab Polyethylene Glycol (Miralax) 17 gm PO DAILY [facility] Last Admin: 05/09/17 08:02 Dose: Not Given Potassium Chloride (K-Dur) 10 meq PO WB [facility] Last Admin: 05/09/17 08:02 Dose: Not Given Senna/Docusate Sodium (Senna Plus Tablet) 1 tab PO BID [facility] Last Admin: 05/09/17 08:02 Dose: Not Given Sodium Chloride (Iv Flush) 10 - 80 ml IVF PRN PRN PRN Reason: Flushing Last Admin: 05/09/17 06:38 Dose: 10 ml Sodium Chloride (Normal Saline) 500 ml IV PRN PRN Last Admin: 05/09/17 09:09 Dose: 500 ml Tramadol HCl (Ultram) 50 mg PO Q4-6HR PRN PRN Reason: Pain Home Medications: Home Medications Medication Instructions Recorded Confirmed Type Aspirin 81 mg PO HS #0 07/20/15 05/07/17 History Atorvastatin Calcium 40 mg PO HS #0 07/20/15 05/07/17 History Citalopram Hydrobromide 20 mg PO DAILY #0 07/20/15 05/07/17 History [Citalopram HBr] Insulin Glargine,Hum.rec.anlog 55 unit SQ HS #0 10/23/16 05/07/17 History [Lantus Solostar] Labetalol HCl 300 mg PO BID #0 10/23/16 05/07/17 History Metformin HCl 1,000 mg PO BIDWM #0 10/23/16 05/07/17 History Potassium Chloride 10 mg PO DAILY #0 10/23/16 05/07/17 History Furosemide [Lasix] 40 mg PO DAILY 03/15/17 05/07/17 History Losartan [Cozaar] 100 mg PO DAILY 03/15/17 05/07/17 History Rivaroxaban [Xarelto] 20 mg PO DAILY 03/15/17 05/07/17 History APAP/Diphenhydramine 500/25 2 tab PO HS 05/07/17 05/07/17 History [Tylenol Pm] Insulin Aspart [NovoLOG] 10 unit SQ TIDWM 05/07/17 05/07/17 History Oxycodone/Acetaminophen 5/325 1 tab PO Q4HR PRN 05/07/17 05/07/17 History [Percocet 5/325] Tramadol [Ultram] 50 mg PO Q4-6HR PRN 05/07/17 05/07/17 History Ubidecarenone [Coenzyme Q10] 100 mg PO DAILY 05/07/17 05/07/17 History Is Patient on Beta Ifrah?: Yes Beta Ifrah Last Dose Date/Time: 203405/08/17 - Medical History Respiratory: Reports: Pulmonary Embolism (2017) Cardiovascular: Reports: Coronary Artery Disease, Hypertension, Myocardial Infarction Gastrointestional: Reports: Gastroesophageal Reflux Disease, Morbid Obesity Neuro/Musculoskeletal: Reports: Cerebrovascular Accident, Muscle Weakness (left arm), Paralysis (Left arm and leg) Renal/Endocrine: Reports: Diabetes Mellitus Type 1 - Surgical History HEENT Surgeries: Reports: Eye Surgery (Both cataracts removed, 2004), Tonsillectomy (194) Cardiac Surgeries/Treatments: Reports: Cardiac Catheterization GI Surgery/Treatments: Reports: Appendectomy, Hernia Repair Musculoskeletal Surgery/Tx: Reports: Joint Surgery (ARTHROSCOPIC), Orthopedic Surgery Reproductive Surgery/Treatment: Reports: Hysterectomy, Tubal Ligation Anesthesia Reactions: None (slow to wake) Hx Family Anesthesia Reaction: No History of Motion Sickness: No - Social History Smoking Status: Never smoker Substance Use Type: does not use - Pertinent Findings Laboratory: CBC and BMP 05/09/17 04:15 05/09/17 04:15 BMP 10/24/17 04:15 Sodium 135 Potassium 5.2 H Chloride 100 Carbon Dioxide 27 BUN 45.0 H Creatinine 1.2 D Glucose 119 H Calcium 9.1 EKG: Sinus Rhythm - Physical Exam Respiratory Exam: Present: lungs clear, bilateral breath sounds equal Cardiovascular Exam: Present: regular rate and rhythm, no murmur - Airway Assessment Mallampati Score: II TMD: 2 Fingerbreadths Neck Extension: fair Teeth: poor dentation Overall Assessment: may be difficult intubation - ASA ASA Score: 3 - Plan Anesthesia: General Inhalation Gases - Discussion Discussion: Discussed risks/options/alternatives of anesthesia and questions answered. Patient consents. Nursing pain assessment noted. Present for Discussion: children Attestation Statement: Prior to the delivery of any anesthetic medication, I examined the patient, developed the plan, obtained the patient's consent and discussed the risk and benefits of the procedure with the patient/guardian. - Additional Information Seen by Anesthesia: Yes
[2017-05-09] MEDS ORDERED: FentaNYL 100 MCG/2 ML INJECTION ONE (10:10)
[2017-05-09] MEDS ORDERED: PROPOFOL 20 ML ONE (10:10)
[2017-05-09] MEDS ORDERED: HYDROMORPHONE 2 MG/ML INJECTION ONE (10:47)
[2017-05-09] MEDS: LABETALOL 100 MG TABLET PO SCH ×2 (11:31→21:10)
[2017-05-09] MEDS ORDERED: ROCURONIUM 50 MG/5 ML INJECTION IVP ONE (11:42)
--- NOTE | 2017-05-09 13:18 | Remote Fluorsocopy Report ---
Indication: ORIF LEFT DISTAL FEMUR RF femur LT: Comparison: None Technique: Patient showed a series of C-arm films during long intramedullary heri placement to stabilize the femoral fracture. Findings: Alignment is satisfactory. Long heri extends from the knee to the proximal femur. Multiple screws and cerclage wires are in place. Impression: Series of C-arm films during intramedullary heri placement to stabilize a fracture of the distal femur. Alignment is satisfactory. Fluoroscopy time four minutes .
--- NOTE | 2017-05-09 13:58 | Anesthesia Postoperative Note ---
- Date and Time Date: 05/09/17 Time: 13:58 - Status Patient Participated in Evaluation: Patient Participated in Person Vital Signs: Temperature 97.5 F 05/09/17 13:45 Pulse Rate 93 05/09/17 13:50 Respiratory Rate 16 05/09/17 13:50 Blood Pressure 140/63 H 05/09/17 13:50 Pulse Oximetry 93 05/09/17 13:50 Respiratory Function: Airway Patent Cardiovascular Function: Regular Pulse EKG: Sinus Rhythm Mental Status: Alert and Oriented Hydration: Taking PO Fluids Complications During Recover: None Apparent - Follow-Up Instructions Instructions: Per Surgeon
[2017-05-09] MEDS: NOZIN NASAL SWAB NAS SCH ×2 (14:06→21:11)
[2017-05-09] MEDS: FUROSEMIDE 40 MG TABLET PO SCH (14:44)
--- NOTE | 2017-05-09 15:27 | Progress Note ---
<Kiley Mcnulty D - Last Filed: 05/09/17 15:19> - Date 05/09/17 Subjective: Shantal was seen postop. She was drowsy but awakened appropriately. She denies dyspnea, chest pain, n/v, weakness, or dizziness. She denied pain to her leg. Objective Vital signs: Temperature 97.6 F 05/09/17 14:16 Pulse Rate 95 05/09/17 14:45 Respiratory Rate 20 05/09/17 14:45 Blood Pressure 156/67 H 05/09/17 14:45 Pulse Oximetry 92 05/09/17 14:45 Height/Weight/BMI: Height 1.52 m Weight 89.7 kg Body Mass Index 38.5 - Constitutional Present: no acute distress, well nourished, well developed, morbidly obese - Routine HEENT Exam Eye: Absent: conjunctival icterus ENT: Present: mucous membranes dry - Routine Respiratory Exam Present: CTA bilaterally - Routine Cardiovascular Exam Present: RRR, S1, S2 - Routine Abdominal Exam Present: soft, normoactive bowel sounds, non distended, non tender - Routine Extremities Exam Present: no edema - Routine Musculoskeletal Exam Musculoskeletal: Present: limited range of motion (left knee - dressing in place ; ice bag on top) - Routine Skin Exam Present: intact, dry, pallor, warm - Routine Neurological Exam Present: alert (drowsy), oriented X3 - Routine Psychiatric Exam Present: normal affect, normal thought process, cooperative Results - Labs CBC & Chem 7: 05/09/17 13:29 05/09/17 04:15 Assessment and Plan (1) Femur fracture, left Current visit: Yes Status: Acute Assessment and Plan: Assessment Left distal femur fracture ABLA superimposed on mild normocytic anemia - PRBC x1 unit on 05/09/17 Hyperkalemia (05/09/17) DM2 insulin requiring, with diabetic amyotrophy & proximal neuropathy -hgb A1c was 7.8% on 03/17/17 CHF - systolic, valvular -Echo 04/01/15 - EF 56%; moderate mitral stenosis and mild to moderate mitral regurgitation; mild tricuspid regurgitation; moderate pulmonary HTN CAD Rt DVT; 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 150 ml. She was transfused 1 unit of blood today d/t hgb dropping to 7.5. On recheck it was 8.1. She may need additional transfusion postop. D/W Bashir Thompson - ok to start anticoagulation - will start Xarelto today. K was elevated at 5.2 this morning; mild increase in BUN and creatinine as well. Increase LR to 75 mL/hr, monitoring closely for overload. Monitor I/Os. PT/OT consult placed. Vit. D level pending. BGM under good control. Hospital Course Summary Disclaimer: The visit summary below is not to be considered part of the above Progress Note. Hospital Course: IMPRESSION PLAN Admit, inpatient status, under the hospitalist service. Dr. Wan has been consulted. Per Bashir Thompson PA-C: patient should be on bedrest (unable to tolerate knee immobilizer); ok to give Lovenox in am; type & screen; plan for sx on 05/09/17 at the earliest. Pain control: IV Dilaudid PRN; continue home Percocet & Tramadol PRN. Monitor telemetry; records requested from Dr. Erwin's office. Check EKG and CXR for op. clearance. Resume home medications including diuretics and excluding Xarelto; monitor fluid status carefully. Monitor blood sugars fasting & 2 hours after meals; continue metformin and insulin. Check vitamin B12 and iron studies - suspect she may need blood transfusion with long bone fracture. Insert Rider for comfort since she is on bedrest. Consult PT/OT postop. PPX: Encourage IS. Lovenox 135 mg x1 in the morning of 05/08/17 - after this will need to determine anticoagulation based on surgical plans. Advanced directives: Requests DNR status. Her daughter in [place] is DPOA-HC. Care will be returned to Dr. Nelson post-discharge. 05/09/17 Underwent sx today with EBL of approx. 150 ml. She was transfused 1 unit of blood today d/t hgb dropping to 7.5. On recheck it was 8.1. She may need additional transfusion postop. D/W Bashir Thompson - ok to start anticoagulation - will start Xarelto today. K was elevated at 5.2 this morning; mild increase in BUN and creatinine as well. Increase LR to 75 mL/hr, monitoring closely for overload. Monitor I/Os. PT/OT consult placed. Vit. D level pending. BGM under good control. <Reggie Schwartz D - Last Filed: 05/09/17 17:34> - Date 05/09/17 Objective Vital signs: Temperature 97.6 F 05/09/17 14:16 Pulse Rate 95 05/09/17 16:45 Respiratory Rate 16 05/09/17 16:45 Blood Pressure 135/56 05/09/17 16:45 Pulse Oximetry 95 05/09/17 16:45 Height/Weight/BMI: Height 1.52 m Weight 89.7 kg Body Mass Index 38.5 Results - Labs CBC & Chem 7: 05/09/17 13:29 05/09/17 04:15 Assessment and Plan (1) Femur fracture, left Current visit: Yes Status: Acute Assessment and Plan: Assessment Left distal femur fracture ABLA superimposed on mild normocytic anemia - PRBC x1 unit on 05/09/17 Hyperkalemia (05/09/17) DM2 insulin requiring, with diabetic amyotrophy & proximal neuropathy -hgb A1c was 7.8% on 03/17/17 CHF - systolic, valvular -Echo 04/01/15 - EF 56%; moderate mitral stenosis and mild to moderate mitral regurgitation; mild tricuspid regurgitation; moderate pulmonary HTN CAD Rt DVT; 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 Chart reviewed. Case discussed with Dr Wan and my PLASTER FOREMAN. Care plan developed with my supervision; agree with above. Doing well this evening. Tolerated Sx well. Denies post op pain. No nausea- taking in liquids and food well. Breathing feels okay-not SOA or congested. Still groggy from surgery. Lungs: decreased, no distress CV: regular MSE: awake alert Plan: Monitor blood counts - 1 unit given this morning. Will restart Xarelto- possible restart ASA tomorrow. Encourage deep breathing and IS use. PT/OT initiated. Blood sugars stable (Lantus lower dose than at home - 40 currently vs 55 at home). Blood pressure stable post op - continue to monitor. Time spent with patient care 25 minutes. DVT Prophylaxis: SCD's, Xarelto Resuscitation Status: Do Not Resuscitate Hospital Course Summary Disclaimer: The visit summary below is not to be considered part of the above Progress Note. Addendum entered and electronically signed by Kiley Mcnulty, P[employer] FOREMAN 05/09/17 15: 32: Change IVF to NS at 100 mL/hr.
[2017-05-09] MEDS: NS 1,000 ML IV SCH (15:41)
--- NOTE | 2017-05-09 16:39 | Operative Note ---
DATE OF OPERATION 05/09/2017 PREOPERATIVE DIAGNOSIS Left femoral diaphyseal fracture with distal extension. POSTOPERATIVE DIAGNOSIS Left femoral diaphyseal fracture with distal extension. PROCEDURE Open reduction internal fixation of left femoral diaphyseal fracture. SURGEON Jory Wan MD SOUP MIXER Bashir Thompson PA-C COMPLICATIONS None. ANESTHESIA General. EBL/FLUIDS Please see anesthetic records. DESCRIPTION OF PROCEDURE Mrs. Ayers and her left leg were identified and marked in the preoperative holding area. She was brought back to the operating suite and placed supine on the operating table. She was placed under general anesthesia. The left lower extremity was prepped and draped in my normal sterile fashion. Timeout was performed. Fluoroscopic imaging was used throughout the case. We were able to get very close to anatomic reduction that closed and decided to proceed with intramedullary nailing. A midline anterior incision was made over the patella. A medial parapatellar arthrotomy was then performed. The proximal femur was opened over a guide pen. I then passed a long guidewire past the fracture site and we reamed to a 13. I then placed a 12 x 330 nail and passed the fracture site. There was some displacement and shortening of the fracture site but we decided to lock distally first. I placed four interlocking screws distally using the aiming arm. However, I did not do poke holes. I then did the side that opened up the fracture site. A lateral incision was made approximately 8-10 cm in length. Dissection was carried through the IT band and in the vastus lateralis it was retracted superiorly. The fracture site was easily identified. There was a lateral, somewhat of a butterfly fragment which was displaced and the fracture site itself was shortened. We used a backslap hammer to lengthen the femur and then with a little bit of external rotation the fracture sites keyed in nicely. I then placed two cerclage wires around the fracture sites at this level. They helped reduce the fracture sites anatomically. I then locked the nail proximally using two anterior and posterior screws using perfect [place]ahu[place] technique. Again, these were done through poke holes. Multiple fluoroscopic images were then taken to ensure good hardware placement and fracture reduction. We were very happy with the results. All wounds were thoroughly irrigated and closed in layers with #1 Vicryl deep and 2-0 Vicryl in the superficial tissues. The skin was then closed with a running nylon. A sterile dressing was then placed. She was allowed to awaken from general anesthesia. The drapes were removed. She was taken to the recovery room under the care of Anesthesia. She tolerated the procedure well. There were no complications. NENA
[2017-05-09] MEDS: RIVAROXABAN 20 MG TABLET PO SCH (16:52)
[2017-05-09] MEDS: CEFAZOLIN 2 G in NS 100 ML IV SCH (18:26)
[2017-05-09] MEDS ORDERED: FALL RISK - PHARMACY CONSULT MC ONE (20:16)
[2017-05-09] MEDS: ATORVASTATIN 40 MG TABLET PO SCH (21:10)
[2017-05-09] MEDS: LOSARTAN 100 MG TABLET PO SCH (21:10)
[2017-05-09] MEDS: INSULIN ASPART 100unit/ml INJECTION SQ PRN (21:11)
[2017-05-09] MEDS: INSULIN GLARGINE 100unit/ml INJECTION SQ SCH (21:11)
[2017-05-09] MEDS: APAP/DIPHENHYDRAMINE 500 MG/25 MG TABLET PO SCH (21:11)
[2017-05-09] MEDS: Oxycodone/Acetaminophen 5/325 1 TAB PO PRN (21:12)
[2017-05-10] MEDS: CEFAZOLIN 2 G in NS 100 ML IV SCH (02:24)
[2017-05-10] MEDS: NS 1,000 ML IV SCH ×4 (02:24→22:56)
[2017-05-10] MEDS: SALINE FLUSH 10ml SYRINGE IVF PRN (05:08)
[2017-05-10] MEDS: NOZIN NASAL SWAB NAS SCH ×3 (05:08→20:55)
[2017-05-10] MEDS: Oxycodone/Acetaminophen 5/325 1 TAB PO PRN (06:26)
[2017-05-10] MEDS: METFORMIN 500 MG TABLET PO SCH ×2 (08:53→18:06)
[2017-05-10] MEDS: POLYETHYL GLYCOL 3350 17gm PACKET PO SCH (08:53)
[2017-05-10] MEDS: COENZYME Q-10 200mg TABLET PO SCH (08:53)
[2017-05-10] MEDS: LABETALOL 100 MG TABLET PO SCH ×2 (08:53→20:55)
[2017-05-10] MEDS: INSULIN ASPART 100unit/ml INJECTION SQ SCH ×3 (08:53→18:12)
[2017-05-10] MEDS: FUROSEMIDE 40 MG TABLET PO SCH (08:54)
[2017-05-10] MEDS: SENNA + DOCUSATE TABLET PO SCH ×2 (08:54→20:55)
[2017-05-10] MEDS: CITALOPRAM 20 MG TABLET PO SCH (08:54)
[2017-05-10] MEDS ORDERED: DiphenhydrAMINE 25 MG CAPSULE PO ONE (10:16)
[2017-05-10] MEDS: INSULIN ASPART 100unit/ml INJECTION SQ PRN ×3 (10:33→20:54)
[2017-05-10] MEDS: NS FLUSH BAG 500ml IV PRN (10:34)
--- NOTE | 2017-05-10 11:13 | Orthopedic Progress Note ---
Date: Subjective/Severity of Illness: Shantal states she is feeling okay. She has been mobilizing slow secondary to her WB restrictions of foot flat with no pivoting or twisting. She is not having any pain. She denies CP or SOB. Her Hgb is 7.2, Dr. Schwartz has ordered 1 unit of PRBC's. Orthopedic Objective PO Vital signs: Temperature 98.0 F 05/10/17 07:00 Pulse Rate 71 05/10/17 08:00 Respiratory Rate 20 05/10/17 07:00 Blood Pressure 127/62 05/10/17 07:00 Pulse Oximetry 95 05/10/17 07:00 Height and Weight: Height 5 ft Weight 198 lb 6.656 oz Body Mass Index 38.5 - Constitutional General Appearance: Present: alert, orientated x3, cooperative, no acute distress, obese - Respiratory Exam Present: non-labored - Cardiovascular Exam Present: pedal pulses intact - Abdominal Exam Present: soft. Absent: tenderness, distended - Knee Exam Knee Exam: Absent: painful ROM Comments: dressing intact, moderate serosangenous drainage noted. - Surgical Site Incision: clean, dressing intact, bloody drainage present (only on primary 4X4's , does not bleed through.) - Integumentary Exam Present: pink, warm, dry, other (Scar is intact over the left shoulder.). Absent: rash, lesions - Neurological Exam Present: other (Moves her toes and reports normal sensation to the feet. Has some reduced sensation left 5th finger since her last shoulder surgery. ) - Psychiatric Exam Present: alert - Labs Result Diagrams: 05/10/17 04:10 05/10/17 04:10 Abnormal lab results 05/08/17 05/09/17 05/10/17 Range/Units 04:16 13:29 04:10 RBC 2.61 L (4.00-5.20) M/MM3 Hgb 8.1 L 7.2 L D (12-16) GM/DL Hct 23.3 L (36-46) % MCHC 30.9 L (31-37) GM/DL Neut % (Auto) 69.2 H (33-66) % Lymph % (Auto) 13.6 L (23-45) % [place] % (Auto) 10.2 H (0-9.0) % Eos % (Auto) 6.2 H (0-4) % [place] # (Auto) 1.0 H (0-0.8) T/MM3 Eos # (Auto) 0.6 H (0-0.5) T/MM3 BUN (7-17) MG/DL BUN/Creatinine Ratio (6-26) RATIO Calcium (8.4-10.2) MG/DL Specimen Hemolysis (0-25) Crossmatch (AHG) See Detail 05/10/17 Range/Units 04:10 RBC (4.00-5.20) M/MM3 Hgb (12-16) GM/DL Hct (36-46) % MCHC (31-37) GM/DL Neut % (Auto) (33-66) % Lymph % (Auto) (23-45) % [place] % (Auto) (0-9.0) % Eos % (Auto) (0-4) % [place] # (Auto) (0-0.8) T/MM3 Eos # (Auto) (0-0.5) T/MM3 BUN 43.0 H (7-17) MG/DL BUN/Creatinine Ratio 43 H (6-26) RATIO Calcium 7.7 L D (8.4-10.2) MG/DL Specimen Hemolysis 100 H (0-25) Crossmatch (AHG) H & H 05/08/17 05/09/17 05/09/17 Range/Units 04:16 04:15 13:29 Hgb 8.5 L D 7.5 L D 8.1 L (12-16) GM/DL Hct 27.8 L D 24.5 L D (36-46) % 05/10/17 Range/Units 04:10 Hgb 7.2 L D (12-16) GM/DL Hct 23.3 L (36-46) % Coagulation 05/08/17 05/09/17 Range/Units 04:16 04:15 INR 1.62 H 1.37 H (0.99-1.21) Orthopedic Assessment and Plan (1) Femur fracture, left Status: Acute Qualifiers: Encounter type: initial encounter Femur location: distal epiphysis Fracture type: closed Assessment and Plan: Mobilize with PT/OT continue pain and bowel management special needs caregiver for discharge planning Xarelto for DVT prevention. - Anticoagulation Therapy Anticoagulation: other Hospital Course Summary Disclaimer: The visit summary below is not to be considered part of the above Progress Note. Hospital Course: IMPRESSION PLAN Admit, inpatient status, under the hospitalist service. Dr. Wan has been consulted. Per Bashir Thompson PA-C: patient should be on bedrest (unable to tolerate knee immobilizer); ok to give Lovenox in am; type & screen; plan for sx on 05/09/17 at the earliest. Pain control: IV Dilaudid PRN; continue home Percocet & Tramadol PRN. Monitor telemetry; records requested from Dr. Erwin's office. Check EKG and CXR for op. clearance. Resume home medications including diuretics and excluding Xarelto; monitor fluid status carefully. Monitor blood sugars fasting & 2 hours after meals; continue metformin and insulin. Check vitamin B12 and iron studies - suspect she may need blood transfusion with long bone fracture. Insert Rider for comfort since she is on bedrest. Consult PT/OT postop. PPX: Encourage IS. Lovenox 135 mg x1 in the morning of 05/08/17 - after this will need to determine anticoagulation based on surgical plans. Advanced directives: Requests DNR status. Her daughter in [place] is DPOA-HC. Care will be returned to Dr. Nelson post-discharge. 05/09/17 Underwent sx today with EBL of approx. 150 ml. She was transfused 1 unit of blood today d/t hgb dropping to 7.5. On recheck it was 8.1. She may need additional transfusion postop. D/W Bashir Thompson - ok to start anticoagulation - will start Xarelto today. K was elevated at 5.2 this morning; mild increase in BUN and creatinine as well. Increase LR to 75 mL/hr, monitoring closely for overload. Monitor I/Os. PT/OT consult placed. Vit. D level pending. BGM under good control.
--- NOTE | 2017-05-10 11:41 | Progress Note ---
<Kristan Guzman V - Last Filed: 05/10/17 11:37> - Date 05/10/17 Subjective: Vanessa is seen this morning in follow up. She is currently on 2 liters and has been since surgery. Denies feeling short of breath or chest pain. No GI complaints. Bowels have not yet moved. Hgb 7.2. Objective Vital signs: Temperature 98.0 F 05/10/17 07:00 Pulse Rate 71 05/10/17 08:00 Respiratory Rate 20 05/10/17 07:00 Blood Pressure 127/62 05/10/17 07:00 Pulse Oximetry 95 05/10/17 07:00 Height/Weight/BMI: Height 1.52 m Weight 90 kg Body Mass Index 38.5 - Constitutional Present: no acute distress, well nourished, well developed - Routine HEENT Exam Eye: Present: EOMI ENT: Present: mucous membranes moist, dentition normal - Routine Respiratory Exam Present: CTA bilaterally. Absent: wheezes - Routine Cardiovascular Exam Present: RRR, S1, S2. Absent: murmur - Routine Abdominal Exam Present: soft, normoactive bowel sounds, non distended. Absent: tenderness - Routine Extremities Exam Present: pulses intact - Routine Skin Exam Present: dry, pallor, warm - Routine Neurological Exam Present: alert, oriented X3, CN II-XII intact - Routine Lymphatic Exam Lymphatic: Absent: adenopathy - Routine Psychiatric Exam Present: normal affect, cooperative Results - Labs CBC & Chem 7: 05/10/17 04:10 05/10/17 04:10 Assessment and Plan (1) Femur fracture, left Current visit: Yes Status: Acute Assessment and Plan: Assessment Left distal femur fracture ABLA superimposed on mild normocytic anemia - PRBC x1 unit on 05/09/17 Hyperkalemia (05/09/17) DM2 insulin requiring, with diabetic amyotrophy & proximal neuropathy -hgb A1c was 7.8% on 03/17/17 CHF - systolic, valvular -Echo 04/01/15 - EF 56%; moderate mitral stenosis and mild to moderate mitral regurgitation; mild tricuspid regurgitation; moderate pulmonary HTN CAD Rt DVT; 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 Will transfuse one unit of PRBCs now and continue to follow Hgb routinely. Work on weaning down on oxygen Xarelto was restarted for chronic anticoagulation Blood pressure appears to be well controlled on current regimen, labetalol, Cozaar, Lasix Monitor Accu-Cheks and continue on Lantus 40 units at at bedtime, NovoLog 10 units with meals as well as sliding scale. Encourage work with PT/OT for Post-op strengthening Hospital Course Summary Disclaimer: The visit summary below is not to be considered part of the above Progress Note. Hospital Course: IMPRESSION PLAN Admit, inpatient status, under the hospitalist service. Dr. Wan has been consulted. Per Bashir Thompson PA-C: patient should be on bedrest (unable to tolerate knee immobilizer); ok to give Lovenox in am; type & screen; plan for sx on 05/09/17 at the earliest. Pain control: IV Dilaudid PRN; continue home Percocet & Tramadol PRN. Monitor telemetry; records requested from Dr. Erwin's office. Check EKG and CXR for op. clearance. Resume home medications including diuretics and excluding Xarelto; monitor fluid status carefully. Monitor blood sugars fasting & 2 hours after meals; continue metformin and insulin. Check vitamin B12 and iron studies - suspect she may need blood transfusion with long bone fracture. Insert Rider for comfort since she is on bedrest. Consult PT/OT postop. PPX: Encourage IS. Lovenox 135 mg x1 in the morning of 05/08/17 - after this will need to determine anticoagulation based on surgical plans. Advanced directives: Requests DNR status. Her daughter in [place] is DPOA-HC. Care will be returned to Dr. Nelson post-discharge. 05/09/17 Underwent sx today with EBL of approx. 150 ml. She was transfused 1 unit of blood today d/t hgb dropping to 7.5. On recheck it was 8.1. She may need additional transfusion postop. D/W Bashir Thompson - ok to start anticoagulation - will start Xarelto today. K was elevated at 5.2 this morning; mild increase in BUN and creatinine as well. Increase LR to 75 mL/hr, monitoring closely for overload. Monitor I/Os. PT/OT consult placed. Vit. D level pending. BGM under good control. 10/25/17- entries 1 unit of packed red blood cells today. His hemoglobin is down to 7.2. Will work on weaning down oxygen. The role to restarted. Continue to monitor <Reggie Schwartz - Last Filed: 05/10/17 19:33> - Date 05/10/17 Objective Vital signs: Temperature 98.2 F 05/10/17 11:00 Pulse Rate 81 05/10/17 16:00 Respiratory Rate 18 05/10/17 11:00 Blood Pressure 129/55 05/10/17 11:00 Pulse Oximetry 91 05/10/17 13:26 Height/Weight/BMI: Height 1.52 m Weight 90 kg Body Mass Index 38.5 Results - Labs CBC & Chem 7: 05/10/17 14:22 05/10/17 04:10 Assessment and Plan (1) Femur fracture, left Current visit: Yes Status: Acute Assessment and Plan: Assessment Left distal femur fracture ABLA superimposed on mild normocytic anemia - PRBC x1 unit on 05/09/17 and 05/10 Hyperkalemia (05/09/17) DM2 insulin requiring, with diabetic amyotrophy & proximal neuropathy -hgb A1c was 7.8% on 03/17/17 CHF - systolic, valvular -Echo 04/01/15 - EF 56%; moderate mitral stenosis and mild to moderate mitral regurgitation; mild tricuspid regurgitation; moderate pulmonary HTN CAD Rt DVT; 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 Chart reviewed. Case discussed with CM and my [employer]ER. Care plan developed with my supervision; agree with above. Doing well this evening. Reports pain controlled well-Percocet helping and tolerating the medication without problems. Eating well. No nausea. Passing flatus, but no stool. Breathing without SOA or congestion. Lungs: Clear bilaterally. No crackles or distress CV: regular AB: soft nt/nd +BS MSE: awake alert appropriate Plan: Transfusion given this am as HGB 7.2 - recheck post transfusion 8.2. Continue therapy-looking at IRU for care once acute needs stabilized. Encourage IS and pulmonary toilet. Continue Bowel motivation. Clinically improving. DVT Prophylaxis: Xarelto Resuscitation Status: Do Not Resuscitate Hospital Course Summary Disclaimer: The visit summary below is not to be considered part of the above Progress Note.
[2017-05-10] MEDS: RIVAROXABAN 20 MG TABLET PO SCH (18:06)
[2017-05-10] MEDS: LOSARTAN 100 MG TABLET PO SCH (20:55)
[2017-05-10] MEDS: ATORVASTATIN 40 MG TABLET PO SCH (20:55)
[2017-05-10] MEDS: INSULIN GLARGINE 100unit/ml INJECTION SQ SCH (20:55)
[2017-05-10] MEDS: APAP/DIPHENHYDRAMINE 500 MG/25 MG TABLET PO SCH (20:56)
[2017-05-10] MEDS ORDERED: ASPIRIN 81 MG CHEWABLE TABLET PO SCH (21:00)
[2017-05-11] MEDS: Oxycodone/Acetaminophen 5/325 1 TAB PO PRN (00:38)
[2017-05-11] MEDS: NS 1,000 ML IV SCH ×2 (04:18→14:15)
[2017-05-11] MEDS: NOZIN NASAL SWAB NAS SCH ×2 (05:58→14:07)
--- NOTE | 2017-05-11 07:21 | Orthopedic Progress Note ---
Date: Subjective/Severity of Illness: Shantal states she is feeling okay. She has been mobilizing slow secondary to her WB restrictions of foot flat with no pivoting or twisting. She is not having any pain. She denies CP or SOB. Her Hgb is 7.5, after 1 unit of PRBC's. Orthopedic Objective PO Vital signs: Temperature 97.7 F 05/11/17 04:13 Pulse Rate 66 05/11/17 04:13 Respiratory Rate 16 05/11/17 04:13 Blood Pressure 134/70 05/11/17 04:13 Pulse Oximetry 95 05/11/17 04:13 Height and Weight: Height 5 ft Weight 198 lb 6.656 oz Body Mass Index 38.5 - Constitutional General Appearance: Present: alert, orientated x3, cooperative, no acute distress, obese - Respiratory Exam Present: non-labored - Cardiovascular Exam Present: pedal pulses intact - Abdominal Exam Present: soft. Absent: tenderness, distended - Knee Exam Knee Exam: Absent: painful ROM - Surgical Site Incision: clean, dressing intact, bloody drainage present (only on primary 4X4's , does not bleed through.) - Integumentary Exam Present: pink, warm, dry, other (Scar is intact over the left shoulder.). Absent: rash, lesions - Lymphatic Lymphatic: Absent: adenopathy - Neurological Exam Present: other (Moves her toes and reports normal sensation to the feet. Has some reduced sensation left 5th finger since her last shoulder surgery. ) - Psychiatric Exam Present: alert - Labs Result Diagrams: 05/11/17 04:12 05/11/17 04:12 Abnormal lab results 05/08/17 05/10/17 05/11/17 Range/Units 04:16 14:22 04:12 RBC 2.62 L (4.00-5.20) M/MM3 Hgb 8.4 L D 7.5 L (12-16) GM/DL Hct 23.6 L (36-46) % Neut % (Auto) 68.0 H (33-66) % Lymph % (Auto) 14.6 L (23-45) % [place] % (Auto) 10.4 H (0-9.0) % Eos % (Auto) 6.3 H (0-4) % [place] # (Auto) 0.9 H (0-0.8) T/MM3 BUN (7-17) MG/DL BUN/Creatinine Ratio (6-26) RATIO Calcium (8.4-10.2) MG/DL Crossmatch (AHG) See Detail 05/11/17 Range/Units 04:12 RBC (4.00-5.20) M/MM3 Hgb (12-16) GM/DL Hct (36-46) % Neut % (Auto) (33-66) % Lymph % (Auto) (23-45) % [place] % (Auto) (0-9.0) % Eos % (Auto) (0-4) % [place] # (Auto) (0-0.8) T/MM3 BUN 34.0 H (7-17) MG/DL BUN/Creatinine Ratio 49 H (6-26) RATIO Calcium 7.8 L (8.4-10.2) MG/DL Crossmatch (AHG) H & H 05/08/17 05/09/17 05/09/17 Range/Units 04:16 04:15 13:29 Hgb 8.5 L D 7.5 L D 8.1 L (12-16) GM/DL Hct 27.8 L D 24.5 L D (36-46) % 05/10/17 05/10/17 05/11/17 Range/Units 04:10 14:22 04:12 Hgb 7.2 L D 8.4 L D 7.5 L (12-16) GM/DL Hct 23.3 L 23.6 L (36-46) % Coagulation 05/08/17 05/09/17 Range/Units 04:16 04:15 INR 1.62 H 1.37 H (0.99-1.21) Orthopedic Assessment and Plan (1) Femur fracture, left Status: Acute Qualifiers: Encounter type: initial encounter Femur location: distal epiphysis Fracture type: closed Assessment and Plan: Mobilize with PT/OT continue pain and bowel management post acute care nurse for discharge planning Xarelto for DVT prevention. Hospital Course Summary Disclaimer: The visit summary below is not to be considered part of the above Progress Note. Hospital Course: IMPRESSION PLAN Admit, inpatient status, under the hospitalist service. Dr. Wan has been consulted. Per Bashir Thompson PA-C: patient should be on bedrest (unable to tolerate knee immobilizer); ok to give Lovenox in am; type & screen; plan for sx on 05/09/17 at the earliest. Pain control: IV Dilaudid PRN; continue home Percocet & Tramadol PRN. Monitor telemetry; records requested from Dr. Erwin's office. Check EKG and CXR for op. clearance. Resume home medications including diuretics and excluding Xarelto; monitor fluid status carefully. Monitor blood sugars fasting & 2 hours after meals; continue metformin and insulin. Check vitamin B12 and iron studies - suspect she may need blood transfusion with long bone fracture. Insert Rider for comfort since she is on bedrest. Consult PT/OT postop. PPX: Encourage IS. Lovenox 135 mg x1 in the morning of 05/08/17 - after this will need to determine anticoagulation based on surgical plans. Advanced directives: Requests DNR status. Her daughter in [place] is DPOA-HC. Care will be returned to Dr. Nelson post-discharge. 05/09/17 Underwent sx today with EBL of approx. 150 ml. She was transfused 1 unit of blood today d/t hgb dropping to 7.5. On recheck it was 8.1. She may need additional transfusion postop. D/W Bashir Thompson - ok to start anticoagulation - will start Xarelto today. K was elevated at 5.2 this morning; mild increase in BUN and creatinine as well. Increase LR to 75 mL/hr, monitoring closely for overload. Monitor I/Os. PT/OT consult placed. Vit. D level pending. BGM under good control. 05/10/17- entries 1 unit of packed red blood cells today. His hemoglobin is down to 7.2. Will work on weaning down oxygen. The role to restarted. Continue to monitor
[2017-05-11] MEDS: INSULIN ASPART 100unit/ml INJECTION SQ SCH ×2 (08:36→12:38)
[2017-05-11] MEDS: POLYETHYL GLYCOL 3350 17gm PACKET PO SCH (08:36)
[2017-05-11] MEDS: LABETALOL 100 MG TABLET PO SCH (08:36)
[2017-05-11] MEDS: COENZYME Q-10 200mg TABLET PO SCH (08:38)
[2017-05-11] MEDS: SENNA + DOCUSATE TABLET PO SCH (08:38)
[2017-05-11] MEDS: METFORMIN 500 MG TABLET PO SCH (08:38)
[2017-05-11] MEDS: CITALOPRAM 20 MG TABLET PO SCH (08:39)
[2017-05-11] MEDS: FUROSEMIDE 40 MG TABLET PO SCH (08:39)
--- NOTE | 2017-05-11 10:01 | Discharge Summary ---
<Kristan Guzman V - Last Filed: 05/11/17 09:58> Discharge Information Date of admission: 05/07/17 16:01 Anticipated date of discharge: 05/11/17 Attending Physician: Nikhil Cormier IV, MD Primary care physician: Miriam Nelson MD Consults: Physician Consult- Dr Wan- orthopedic management - Discharge Diagnosis (1) Femur fracture, left Status: Acute Left distal femur fracture ABLA superimposed on mild normocytic anemia - PRBC x1 unit on 05/09/17 Hyperkalemia (05/09/17) DM2 insulin requiring, with diabetic amyotrophy & proximal neuropathy -hgb A1c was 7.8% on 03/17/17 CHF - systolic, valvular -Echo 04/01/15 - EF 56%; moderate mitral stenosis and mild to moderate mitral regurgitation; mild tricuspid regurgitation; moderate pulmonary HTN CAD Rt DVT; 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 Minimally displaced mildly comminuted oblique fractures of the distal left femoral metadiaphysis. 2. Generalized osteopenia. 3. Moderate to marked osteoarthrosis of the left knee joint. 05/07- Knee Xray- IMPRESSION: 1. Acute minimally displaced oblique fracture of the distal left femoral metadiaphysis. 2. Moderate tricompartmental osteoarthritis about the left knee joint. 3. Small suprapatellar joint effusion. 05/08/17- Chest Xray- No acute abnormal cardiopulmonary findings - Pathology None History of Present Illness HPI: Shantal Ayers is a 76 year old woman who was walking [place] [employer] when her left knee gave out, as it frequently does. In fact, she's fallen a number of times. After her knee gave out, she fell to the ground, striking her kneecap on the sidewalk. She felt it pop and wasn't able to get back up to bear weight. She reports that this is an isolated injury and she did not hit her head or lose consciousness. She denies any dizziness/weakness, syncope, chest pain, or dyspnea prior to the fall. She's been in her typical state of health and denies recent fevers/chills, cough/congestion, dysphagia, acute vision changes, nausea/ vomiting, UTI symptoms (though has a hx of recurrent UTIs), abdominal pain, diarrhea or constipation. She has chronic left arm/hand weakness, and it's not certain if this is due to a previous stroke or her history of left humerus fracture in October 2016. 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 After her fall, she was taken to [facility], where she was diagnosed with a left distal femur fracture. Labs showed mild normocytic anemia with hgb of 10.7. Chemistries were unremarkable with the exception of hyperglycemia and mildly elevated BUN/creatinine ratio. Dr. Wan was consulted, and the hospitalist service was contacted for inpatient admission. LOS is expected to be 2 overnights, as she will require surgical fixation of her fracture, pain control , and management of her comorbid conditions of DVT/PE on Xarelto; CAD; CHF; DM2 ; hx of TIA. Objective Vital signs: Temperature 97.6 F 05/11/17 07:46 Pulse Rate 73 05/11/17 08:00 Respiratory Rate 14 05/11/17 07:46 Blood Pressure 128/62 05/11/17 07:46 Pulse Oximetry 98 05/11/17 07:46 Height/Weight/BMI: Height 1.52 m Weight 92.5 kg Body Mass Index 38.5 - Constitutional Present: no acute distress, well nourished, well developed - Routine HEENT Exam Eye: Present: EOMI ENT: Present: mucous membranes moist, dentition normal - Routine Respiratory Exam Present: CTA bilaterally. Absent: wheezes - Routine Cardiovascular Exam Present: RRR, S1, S2. Absent: murmur - Routine Abdominal Exam Present: soft, normoactive bowel sounds, non distended. Absent: tenderness - Routine Extremities Exam Present: pulses intact - Routine Skin Exam Present: intact, dry, warm - Routine Neurological Exam Present: alert, oriented X3, CN II-XII intact - Routine Lymphatic Exam Lymphatic: Absent: adenopathy - Routine Psychiatric Exam Present: normal affect, cooperative Hospital Course This is a general summary of the patient's hospital course. For more details refer to the complete medical record. Hospital course: IMPRESSION PLAN Admit, inpatient status, under the hospitalist service. Dr. Wan has been consulted. Per Bashir Thompson PA-C: patient should be on bedrest (unable to tolerate knee immobilizer); ok to give Lovenox in am; type & screen; plan for sx on 05/09/17 at the earliest. Pain control: IV Dilaudid PRN; continue home Percocet & Tramadol PRN. Monitor telemetry; records requested from Dr. Erwin's office. Check EKG and CXR for op. clearance. Resume home medications including diuretics and excluding Xarelto; monitor fluid status carefully. Monitor blood sugars fasting & 2 hours after meals; continue metformin and insulin. Check vitamin B12 and iron studies - suspect she may need blood transfusion with long bone fracture. Insert Rider for comfort since she is on bedrest. Consult PT/OT postop. PPX: Encourage IS. Lovenox 135 mg x1 in the morning of 05/08/17 - after this will need to determine anticoagulation based on surgical plans. Advanced directives: Requests DNR status. Her daughter in [place] is DPOA-HC. Care will be returned to Dr. Nelson post-discharge. 05/09/17 Underwent sx today with EBL of approx. 150 ml. She was transfused 1 unit of blood today d/t hgb dropping to 7.5. On recheck it was 8.1. She may need additional transfusion postop. D/W Bashir Thompson - ok to start anticoagulation - will start Xarelto today. K was elevated at 5.2 this morning; mild increase in BUN and creatinine as well. Increase LR to 75 mL/hr, monitoring closely for overload. Monitor I/Os. PT/OT consult placed. Vit. D level pending. BGM under good control. 05/10/17- entries 1 unit of packed red blood cells today. His hemoglobin is down to 7.2. Will work on weaning down oxygen. The role to restarted. Continue to monitor 05/11/17- Discharge Fartun is seen and examined this morning during breakfast. She is alert, oriented and pleasant. She states that she is feeling great and hopeful to be able to transfer to IRU. Is currently on 1 liter of oxygen by nasal cannula. However, her saturations were 98% this morning. Overall, her left leg pain is well controlled. Hemoglobin still remains low despite transfusion yesterday, hemoglobin this morning 7.5. At this point she would like to hold off on further transfusion and monitor serial hemoglobin. She feels asymptomatic from this anemia. Case discussed with IRU team. She is accepted for transfer to IRU for ongoing strengthening and improve function. Time spent with patient: discharge greater than 30 minutes DVT Prophylaxis: Xarelto Discharge Plan - Discharge Disposition Discharge Date: 05/11/17 Disposition: 61 To [facility] INPT Rehab *Condition: Stable *Reason For Visit: Femur fracture - Discharge Medications *Discharge Medications: New RX: PEG 3350 17gm PACKET [Miralax] 17 gm PO DAILY packet RX: Insulin Glargine,Hum.rec.anlog [Lantus] 40 unit SQ HS vial RX: Bisacodyl Supp [Dulcolax] 10 mg RECTALLY DAILY PRN supp PRN Reason: Constipation RX: Senna + Docusate [Senna Plus Tablet] 1 tab PO BID tablet RX: Milk of Magnesia [Mom] 30 ml PO DAILY PRN udc PRN Reason: Constipation Continue RX: Atorvastatin Calcium 40 mg PO HS #0 RX: Aspirin 81 mg PO HS #0 RX: Labetalol HCl 300 mg PO BID #0 RX: Potassium Chloride 10 mg PO DAILY #0 RX: Losartan [Cozaar] 100 mg PO DAILY RX: Furosemide [Lasix] 40 mg PO DAILY RX: Insulin Aspart [NovoLOG] 10 unit SQ TIDWM RX: Ubidecarenone [Coenzyme Q10] 100 mg PO DAILY RX: Oxycodone/Acetaminophen 5/325 [Percocet 5/325] 1 tab PO Q4HR PRN PRN Reason: Pain RX: Citalopram Hydrobromide [Citalopram HBr] 20 mg PO DAILY #0 RX: Metformin HCl 1,000 mg PO BIDWM #0 RX: Rivaroxaban [Xarelto] 20 mg PO DAILY RX: APAP/Diphenhydramine 500/25 [Tylenol Pm] 2 tab PO HS RX: Tramadol [Ultram] 50 mg PO Q4-6HR PRN PRN Reason: Pain No Action RX: Insulin Glargine,Hum.rec.anlog [Lantus Solostar] 55 unit SQ HS #0 - Discharge Packet/Instructions *Diet: Carb Con, Low fat, 2gm sodium *Activity: Activity as tolerated *Pain Management/Treatment: Percocet as needed for pain *Wound Care: as directed *Expected Signs/Symptoms: Continued improvement in strength *Notify Physician if: N/A *During Business Hours Contact: N/A *After Business Hours Contact: N/A *Pending Lab/Results: No Pending Lab - IRU/GEN Discharge/Transfer - Referrals/Follow Up *Referrals/Follow Up: John Mckeon MD [Physician] - 2 Months (METABOLIC BONE DISEASE follow-up with Dr. Mckeon on 07/12/17 at 10:30am check-in at 10:00am ) - Patient Handouts Patient Handouts: Blood Transfusion (GEN), [facility] Postop Instructions - Dismissal Complete Discharge Instructions are:: Complete <Nikhil Cormier IV - Last Filed: 05/11/17 11:01> Discharge Information Date of admission: 05/07/17 16:01 Attending Physician: Nikhil Cormier IV, MD Primary care physician: Miriam Nelson MD Consults: 05/07/17 16:42 Physician Consult [CONS] Routine Consulting Provider: Zia Wan Reason For Exam: left femur fracture Ordering Provider has Notified Spindle Maker: Yes 05/08/17 IRU Screening [Inpatient Rehab Screening] [CONS] Routine Screen requested by:: Case Management Comment Text:: PT FIRST CHOICE 05/08/17 11:35 Physician Consult [CONS] Routine Consulting Provider: Mikey Rocha Reason For Exam: CONT CARE Ordering Provider has Notified Spindle Maker: Yes 05/09/17 08:00 Physician Consult [CONS] Routine Consulting Provider: John Mckeon Reason For Exam: Metabolic Bone Disease Ordering Provider has Notified Spindle Maker: No - Discharge Diagnosis (1) Femur fracture, left Status: Acute - Laboratory Labs: 05/11/17 04:12 05/11/17 04:12 Objective Vital signs: Temperature 97.6 F 05/11/17 07:46 Pulse Rate 73 05/11/17 08:00 Respiratory Rate 14 05/11/17 07:46 Blood Pressure 128/62 05/11/17 07:46 Pulse Oximetry 98 05/11/17 07:46 Height/Weight/BMI: Height 5 ft Weight 92.5 kg Body Mass Index 38.5 Hospital Course This is a general summary of the patient's hospital course. For more details refer to the complete medical record. Hospital course: I have independently seen and examined the patient. The EMR has been reviewed. The patient is able to transfer to a bedside chair. She says she is doing well and wanting to transfer to IRU. She would like to wait and see on transfusion. She is on RA. She has not had a bowel movement yet but is having flatus. Lungs are clear. Heart is regular. Abd s/nt/nd. Dressing in place to LLE. Patient OK for transfer to IRU. Continue to monitor Hgb. Discharge Plan - IRU/GEN Discharge/Transfer
[2017-05-11] MEDS: INSULIN ASPART 100unit/ml INJECTION SQ PRN ×2 (10:21→14:15)
[2017-05-11 11:20] VITALS: BP 137/68; PULSE 76; RESP 16; TEMP 98.5; O2SAT 94
== END 2017-05-11 14:56 | DRG 481 ==
LOC: ED 11:47 → SRG 16:01 → SUATTDRO 16:01 → SRG 16:05
PROVIDERS: ADMIT Family Medicine; ATTEND Hospitalist

== ENCOUNTER 2017-05-11 14:55 | Inpatient (IN) ==
[2017-05-11] MEDS ORDERED: BISACODYL 10 MG SUPPOSITORY RECTALLY PRN (16:30)
[2017-05-11] MEDS ORDERED: TRAMADOL 50 MG TABLET PO PRN (16:30)
[2017-05-11] MEDS ORDERED: RIVAROXABAN 20 MG TABLET PO SCH (17:30)
[2017-05-11] MEDS: METFORMIN 500 MG TABLET PO SCH (18:31)
[2017-05-11] MEDS: Oxycodone/Acetaminophen 5/325 1 TAB PO PRN (18:31)
[2017-05-11] MEDS: INSULIN ASPART 100unit/ml INJECTION SQ SCH (18:31)
[2017-05-11 19:58] VITALS: BMI 39.9
[2017-05-11] MEDS ORDERED: FALL RISK - PHARMACY CONSULT MC ONE (20:02)
[2017-05-11] MEDS ORDERED: ASPIRIN 81 MG CHEWABLE TABLET PO SCH (21:00)
[2017-05-11] MEDS: APAP/DIPHENHYDRAMINE 500 MG/25 MG TABLET PO SCH (21:02)
[2017-05-11] MEDS: LOSARTAN 100 MG TABLET PO SCH (21:04)
[2017-05-11] MEDS: ATORVASTATIN 40 MG TABLET PO SCH (21:04)
[2017-05-11] MEDS: LABETALOL 100 MG TABLET PO SCH (21:04)
[2017-05-11] MEDS: INSULIN GLARGINE 100unit/ml INJECTION SQ SCH (21:05)
[2017-05-11] MEDS: SENNA + DOCUSATE TABLET PO SCH (21:05)
[2017-05-11] MEDS: SALINE FLUSH 10ml SYRINGE IV PRN ×2 (21:08→21:09)
[2017-05-12] MEDS: METFORMIN 500 MG TABLET PO SCH ×2 (08:17→17:25)
[2017-05-12] MEDS: COENZYME Q-10 200mg TABLET PO SCH (08:17)
[2017-05-12] MEDS: CITALOPRAM 20 MG TABLET PO SCH (08:17)
[2017-05-12] MEDS: POLYETHYL GLYCOL 3350 17gm PACKET PO SCH (08:17)
[2017-05-12] MEDS: LABETALOL 100 MG TABLET PO SCH ×2 (08:18→22:34)
[2017-05-12] MEDS: SENNA + DOCUSATE TABLET PO SCH ×2 (08:18→22:34)
[2017-05-12] MEDS: FUROSEMIDE 20 MG TABLET PO SCH (08:19)
[2017-05-12] MEDS: INSULIN ASPART 100unit/ml INJECTION SQ SCH ×3 (08:22→17:18)
[2017-05-12] MEDS ORDERED: PNEUMOCOCCAL 23 VACCINE 0.5ml INJECTION IM ONE (09:00)
--- NOTE | 2017-05-12 13:15 | IRU History & Physical Report ---
HPI IRU Date: Chief complaint: My leg is weak HPI: Ms. Ayers is a very pleasant 76-year-old female referred by Dr. Reggie Schwartz, hospitalist to the inpatient rehabilitation unit. Her primary care physician is Dr. Miriam Nelson. The patient has a history of frequent falling episodes. Most recently she was on her way to [employer] when her left leg gave out from under her. She fell down. She did not strike her head. She was not unconscious and there was no evidence of presyncope nor lightheadedness. She was brought to the emergency department and found to have a fracture of the distal left femur. The patient was admitted to the acute hospital and underwent open reduction internal fixation by Dr. Wan on 05/09/2017. Because of a recent DVT/pulmonary embolus diagnosed in November 2016, she was on Xarelto. For that reason surgery was delayed for a couple of days until the anticoagulant effects had subsided. Postoperatively she has had a bit of confusion from time to time. In addition she has had some hypoxemia. That is new for her. The patient as mentioned does have history of frequent falling episodes having fallen some 9 times out of 16 days per her report. Her legs are simply weak she states. She does live in a duplex with her daughter. There are no stairs to climb to get in. The patient did experience a fall on 10/22/2016. At that time she sustained a left humerus fracture. She was hospitalized and this was repaired on 11/01/[address] [place] [address] Mejia. However since that time she has had significant weakness of her left upper extremity. There is some question as to whether this was a TIA/CVA versus simply weakness from the fracture. Subsequently, on 11/03/2016 she was noted to have a DVT in the right leg. On November 18 she was being seen by the orthopedist and a pulmonary embolus was diagnosed. She was sent to the emergency department and admitted to [facility]. She has been on Xarelto ever since. On 11/21/2016 she was transferred back to [place] possibly half-way in [facility]. She was subsequently noted to have urinary tract infection which involved Enterococcus faecalis. She apparently was on intravenous vancomycin via PICC line for some time at that point. She has had recurrent urinary tract infections. She sees for cardiology. She was told that she had some type of mitral valve issue but it was of no significant concern. She does have history of echocardiogram demonstrating ejection fraction around 56%. This was noted in March 2015. She also underwent cardiac catheterization around that time and reportedly had no lesions that would require intervention. She does have history of documented coronary disease with myocardial infarction in 2014. She was subsequently discharged back to her home ([facility]) on 01/05/2017 but had significant discomfort in the sciatic nerve. She has been walking with a front- wheeled walker and most recently has obtained a Rollator. With regard to her diabetes, she has monitored her blood sugars typically once daily with fasting sugars range between 83 and 197. She is on Lantus 55 units daily and takes NovoLog as needed if she eats more. She does have history of peripheral neuropathy as well. Her A1c was 7.8% on 03/17/2017. While on acute she was noted to have anemia with low iron levels. She has a normal TIBC. I specifically discussed the issue of resuscitation with the patient. She requests no heroic action be undertaken in the event of a cardiac or pulmonary arrest. She specifically does not want CPR nor mechanical ventilation. Her prior level of functioning before the current fracture is as follows: She was independent for grooming, upper and lower body dressing, toileting. She was modified independent for bathing, bed/chair/wheelchair transfers, toilet transfers, walking. She walks with a rolling walker 500 feet at home. She was modified independent for stairs. Current level of functioning is as follows: She is modified independent for grooming, requires moderate assistance for upper body dressing and maximal assistance for lower body dressing. She is independent with toileting. She requires total assistance for bed/chair/wheelchair transfers and toilet transfers. She is unable to walk at the present time. She is unable to do stairs. The following medical conditions are noted and require active monitoring and/or management: 1. Diabetes mellitus: She is at risk for hyperglycemia or hypoglycemia in view of increased activity while on rehabilitation and when she returns home. 2. History of coronary artery disease with congestive heart failure: She is at risk for exacerbation of these conditions due to increased activity. 3. History of DVT and pulmonary embolus in November 2016 currently on anticoagulant: The patient is at risk for bleeding or for recurrence of DVT/PE in view of the recent surgery. 4. Pain management 5. She is at risk for surgical site infection in view of her obesity and diabetes mellitus 6. Anemia: She is at risk for further blood loss and instability of blood count with resultant hypotension etc. The following therapies will be needed: 1. Physical therapy: for transfers and ambulation and stairs. 2. Occupational therapy: for ADL's and transfers. 3. Dietitian: To ensure adequate nutrition in view of her diabetes mellitus 4. Medical management: for the above conditions. 5. 24 hour Rehabilitation Nursing to monitor and address the following: Close monitoring of blood sugars, blood pressures, cardiac status, pulmonary status, monitoring wound for infection evidence and to decrease risk of falls [facility] Patient Stated Medical History Cerebrovascular Accident Yes Paralysis Yes: Left arm and leg Transient Ischemic Attacks ( Yes TIA) Cataracts Yes: Both eyes Hearing Loss Yes: Both ears Coronary Artery Disease Yes Hypertension Yes Myocardial Infarction Yes Pneumonia Yes Pulmonary Embolism Yes: 2017 Sleep Apnea No Diabetes Mellitus Type 1 Yes Diabetes Mellitus Type 2 Yes Constipation No Gastroesophageal Reflux Yes Disease Hiatal Hernia Yes Hx Incontinence No Hx Kidney Stones Yes Hx Urinary Tract Infection Yes Clotting Problems Yes: Hx: Rt DVT, PE Osteoarthritis Yes Anesthesia Reactions Yes: HARD TO WAKE UP Blood Transfusions Yes Other Yes: recurrent UTI, L retinal artery occlusion Depression Yes Post Menopausal Yes Now No Medical History Updates: 1. Diabetes mellitus on long-term insulin therapy. 2. ASHD with previous MRI. 3. Hypertension. 4. Hyperlipidemia. 5. Diabetic neuropathy. 6. Reduced hearing. 7. History of mitral valve disorder uncharacterized. 8. Reported congestive heart failure, systolic. 9. Depression. 10. Left retinal artery occlusion. 11. Possible previous TIA or CVA although unconfirmed Surgical History: 1. Left humerus ORIF 11/01/16. 2. Cardiac catheterization 04/01 - no stents; mild multivessel disease. 3. Echo 04/01/15 - EF 56%; moderate mitral stenosis and mild to moderate mitral regurgitation; mild tricuspid regurgitation; moderate pulmonary hypertension. 4. T&A. 5. Appendectomy. 6. Right breast [id number] 1967. 7. Hernia repair age 33. 4. Hysterectomy 1974. 5. Breast biopsy 1967 - benign. 6. Appendectomy 1955. 7. Bilateral cataract procedure. 8. Right second toe amputation 2006 Family History: Father at 61 with heart failure mother age 85 with diabetes and stroke. Sr. with Parkinson's disease. Another sister is living and healthy. - Social History Smoking status: Never smoker Substance use type: does not use Alcohol intake: never Alcohol intake frequency: does not drink Housing: apartment Household members: other (daughter currently lives with her) Current occupational status: retired Current residence: Apartment/Private Home Social history: The patient lives in a [facility] and also [place]. She has no stairs in her home. Her daughter has recently been staying with her the last 3 months or so to offer additional help. Patient was for 45 years with her having June 2004. Review of Systems - Constitutional Constitutional: Present: weight loss (she has lost some 16 pounds over the last several months by reducing portion sizes). Absent: anorexia, chills, fatigue, fever(s), headache(s), lethargy, malaise, night sweats, weakness, weight gain - EEINT Eyes: Absent: blurry vision, change in vision, diplopia Ears: Present: other (she is reportedly hard of hearing) Mouth/Throat: Absent: changes in swallowing, painful swallowing, change in taste , bleeding gums, change in voice - Cardiovascular Cardiovascular: Present: dyspnea on exertion, edema. Absent: chest pain, palpitations, syncope, orthopnea, cyanosis, heart murmur Rhythm: Present: regular rhythm Vascular: Absent: intermittent claudication, pedal edema, unilateral swelling - Respiratory Respiratory: Present: dyspnea on exertion. Absent: cough, dyspnea, hemoptysis, wheezing, pain on inspiration, chest congestion, excessive phlegm production - Gastrointestinal Gastrointestinal: Present: constipation, nausea (if she eats certain things or too much she will vomit.). Absent: abdominal pain, change in bowel habits, diarrhea, dyspepsia, dysphagia, early satiety, hematochezia, melena, vomiting - Musculoskeletal Musculoskeletal: Absent: abnormal gait, arthralgias, back pain, joint swelling, limited range of motion, muscle weakness - Integumentary/Breasts Integumentary: Absent: alopecia, erythema, lesions, pruritus, rash, jaundice - Neurological Neurological: Present: weakness. Absent: abnormal gait, abnormal movements, abnormal speech, confusion, convulsions, dizziness, focal weakness, frequent falls, headache(s), loss of vision, memory loss, numbness, paresthesias, tremor( s) - Psychiatric Psychiatric: Present: depression. Absent: abnormal sleep pattern, anxiety - Endocrine Endocrine: Absent: cold intolerance, flushing, heat intolerance, palpitations - Hematologic/Lymphatic Hematologic/Lymphatic: Absent: easy bleeding, easy bruising, lymphadenopathy - Allergic/Immunologic Allergic/Immunologic: Absent: urticaria Medications Home Medications Medication Instructions Recorded Confirmed Type Aspirin 81 mg PO HS #0 07/20/15 05/11/17 History Atorvastatin Calcium 40 mg PO HS #0 07/20/15 05/11/17 History Citalopram Hydrobromide 20 mg PO DAILY #0 07/20/15 05/11/17 History [Citalopram HBr] Labetalol HCl 300 mg PO BID #0 10/23/16 05/11/17 History Metformin HCl 1,000 mg PO BIDWM #0 10/23/16 05/11/17 History Potassium Chloride 10 mg PO DAILY #0 10/23/16 05/11/17 History Furosemide [Lasix] 40 mg PO DAILY 03/15/17 05/11/17 History Losartan [Cozaar] 100 mg PO HS 03/15/17 05/11/17 History Rivaroxaban [Xarelto] 20 mg PO WS 03/15/17 05/11/17 History APAP/Diphenhydramine 500/25 2 tab PO HS 05/07/17 05/11/17 History [Tylenol Pm] Insulin Aspart [NovoLOG] 10 unit SQ TIDWM 05/07/17 05/11/17 History Oxycodone/Acetaminophen 5/325 1 - 2 tab PO Q4HR PRN 05/07/17 05/11/17 History [Percocet 5/325] Tramadol [Ultram] 50 mg PO Q4-6HR PRN 05/07/17 05/11/17 History Ubidecarenone [Coenzyme Q10] 100 mg PO DAILY 05/07/17 05/11/17 History Allergies Allergy/AdvReac Type Severity Reaction Status Date / Time codeine Allergy Unknown Light-Heade Verified 05/11/17 20:36 dness Exam Vital Signs: Temperature 98.5 F 05/12/17 08:00 Pulse Rate 80 05/12/17 08:00 Respiratory Rate 18 05/12/17 08:00 Blood Pressure 157/67 H 05/12/17 08:00 Pulse Oximetry 93 05/12/17 08:00 Height/Weight/BMI: Height 1.52 m Weight 92.7 kg Body Mass Index 39.9 - Constitutional Present: no acute distress, well nourished, well developed, obese, cooperative - Routine HEENT Exam Head: Present: normocephalic, atraumatic. Absent: cushingoid faces, abrasion, laceration, hematoma Eye: Present: EOMI, PERRL. Absent: conjunctival icterus, scleral injection, periorbital swelling, nystagmus ENT: Present: mucous membranes moist, oropharynx clear - Routine Neck Exam Present: supple, full ROM, trachea midline. Absent: lymphadenopathy, thyromegaly, tenderness, swelling - Routine Chest/Breast/Axilla Exam Chest wall: Absent: tenderness, mass Axillae: Absent: lymphadenopathy, mass - Routine Respiratory Exam Present: crackles (she has bibasilar crackles). Absent: accessory muscle use, decreased breath sounds, prolonged expiratory phase, rales, respiratory distress , rhonchi, stridor, wheezes, distant breath sounds - Routine Cardiovascular Exam Present: RRR, S1, S2, no murmur. Absent: gallop, S3, S4, click, irregular rhythm - Routine Abdominal Exam Present: soft, normoactive bowel sounds, non distended, non tender. Absent: rebound, guarding, firm, rigid, organomegaly, mass, hernia, wound - Routine Extremities Exam Present: no edema, non tender, pulses intact, normal capillary refill. Absent: cyanosis, clubbing - Routine Back/Spine/Pelvis Exam Back/Spine: Present: full ROM. Absent: scoliosis, kyphosis - Routine Skin Exam Present: intact, dry, warm. Absent: cyanosis, erythema, pallor, mottling, petechiae, urticaria, lesions, jaundice - Routine Neurological Exam Present: alert, oriented X3, CN II-XII intact, sensory deficit, motor deficit, moving all extremities, normal speech - Routine Psychiatric Exam Present: normal affect, normal thought process, cooperative, good insight, good judgment. Absent: depressed, anxious Sepsis Assessment - Evaluation Confirmed Suspected Infection: No IRU A/P (1) Femur fracture, left Qualifiers: Encounter type: initial encounter Femur location: distal epiphysis Fracture type: closed Current visit: No Status: Acute The patient will require an intensive individualized program of and interdisciplinary nature with physical therapy and occupational therapy in view of her recent left femoral fracture and ORIF. 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 However in view of her activity changes here as well as possible intake variation, she is at risk for hyperglycemia or hypoglycemia and her blood sugars will be monitored carefully. (3) Acute blood loss anemia Current visit: Yes Status: Acute Hemoglobin has progressively declined since surgery. There is no obvious source of blood loss except for the fracture. She is on Xarelto for a previously diagnosed DVT/PE. We will monitor this carefully and may need to stop the Xarelto. (4) Benign essential hypertension Current visit: Yes Status: Chronic (5) ASHD (arteriosclerotic heart disease) Current visit: Yes Status: Chronic DVT Prophylaxis: Xarelto Resuscitation Status: Do Not Resuscitate - Course Hospital Course: Jonathan Philippe MD: - Interventions to Obtain Goals PT Treatment Plan: Balance/Proprioception, Functional Activities, Gait Training , Patient/Family Education, Therapeutic Exercise OT Treatment Plan: ADL (Basic Care), Balance Training, Pt./Family Education, Ther. Exercise for ADL Goals Progress/Modifications: The patient will require an interdisciplinary approach to management of her multiple medical problems. She will be seen by occupational therapy and physical therapy. It is anticipated the patient will be able to return to her previous level of functioning at a modified independent level.
--- NOTE | 2017-05-12 13:50 | IRU 24Hr Post Admit Eval ---
24 Hr Post Admission Physical - Relevant Changes Relevant Changes: No Reviewed: I have reviewed the patient's information and concur with the finding and results of the pre-admission screen. Certification: I certify the patient for rehabilitation. - Patient Condition (1) Femur fracture, left Status: Acute Qualifiers: Encounter type: initial encounter Femur location: distal epiphysis Fracture type: closed Code(s): S72.92XA - Unspecified fracture of left femur, initial encounter for closed fracture Classification: IRF Tx That Should Address Diagnosis, Diagnosis Requiring Medical Follow Up (2) Diabetes mellitus Status: Chronic Qualifiers: Diabetes mellitus type: type 2 Diabetes mellitus complication status: with neurologic complications Diabetes mellitus complication detail: with polyneuropathy Diabetes mellitus assistant terminal manager insulin use: with senior care use Qualified Code(s): E11.42 - Type 2 diabetes mellitus with diabetic polyneuropathy; Z79.4 - prison (current) use of insulin; Z79.4 - prison ( current) use of insulin; Z79.4 - assistant terminal manager (current) use of insulin; Z79.4 - prison (current) use of insulin Code(s): E11.9 - Type 2 diabetes mellitus without complications Classification: Present on IRF Admission, IRF Tx That Should Address Diagnosis, Diagnosis Requiring Medical Follow Up (3) Acute blood loss anemia Status: Acute Code(s): D62 - Acute posthemorrhagic anemia Classification: Present on IRF Admission, IRF Tx That Should Address Diagnosis, Diagnosis Requiring Medical Follow Up (4) Benign essential hypertension Status: Chronic Code(s): I10 - Essential (primary) hypertension Classification: Present on IRF Admission, IRF Tx That Should Address Diagnosis, Diagnosis Requiring Medical Follow Up (5) ASHD (arteriosclerotic heart disease) Status: Chronic Code(s): I25.10 - Atherosclerotic heart disease of [place] coronary artery without angina pectoris Classification: Present on IRF Admission, Diagnosis Requiring Medical Follow Up - Prior Functional Status Lives With: Other (daughter lives with her) Residence Type: Apartment/Private Home Assitive Devices: Front Wheeled Walker Prior Functional Status: Indep. at home or school - Current Functional Status Current Level of Function: Current level of functioning is as follows: She is modified independent for grooming, requires moderate assistance for upper body dressing and maximal assistance for lower body dressing. She is independent with toileting. She requires total assistance for bed/chair/wheelchair transfers and toilet transfers. She is unable to walk at the present time. She is unable to do stairs. Failed Alternative Therapy: Arrived from Acute Care Patient Requirements: The patient requires oversight by rehabilitation physician to manage their rehabilitation treatment plan and multidisciplinary approach to care that can only be provided in an IRF and requires a multidisciplinary approach to care, provided by professional PTs, OTs, STs, dieticians, RTs, rehabilitation nurses and is not available in lesser levels of care. Limitations Req: Mobility Impairment, ADL Impairment Physical Therapy Minutes: 90 Occupational Therapy Minutes: 90 Therapy: The patient is to receive therapy at least 5 days a week. - Complications/Comorbidities Impact on Functional Outcomes: Her diabetes as well as the recent fracture and the prior left humerus fracture will impact her functional recovery. Barriers to Discharge: Weakness, Endurance - Plan to Avoid Complications Plan to Avoid Complications: The patient cannot receive this care in a lesser intensive setting such as Senior Care or Outpatient Therapy due to the patient requiring the following : Close monitoring of blood sugars, monitoring of surgical site for evidence of infection, close monitoring of hemoglobin and possible requirement for transfusion. .
--- NOTE | 2017-05-12 14:33 | Consult Note ---
<Georgia Thompson - Last Filed: 05/12/17 16:13> Consult Information - Data of Consult Consult date: 05/12/17 Requesting Physician: Jonathan Philippe MD Primary Care Provider: Miriam Nelson MD Family Provider: Miriam Nelson MD - Consult Narrative Reason for consult: medical management of chronic health problems History of present illness: Patient is a 76-year-old female familiar to the hospitalist service as she was under our care during her acute stay for her left distal femur fracture. She fell on her way to [place] and broke her femur. She underwent open reduction internal fixation by Dr. Wan on 05/09/17. She was transferred to inpatient rehabilitation unit yesterday for continued strengthening. She reports her pain has been very well controlled. This has not been an issue for her. Patient reports that she's been dizzy and lightheaded the last day or 2. She is not short of breath. Her hemoglobin today is 7.0. She is on Xarelto for DVT/PE which was diagnosed in November. She was transfused a unit of blood on 05/09 when her hemoglobin dropped to 7.5. She was given another unit of blood on 05/10/17 as her hemoglobin was 7.2 despite the transfusion the day before. Yesterday her hemoglobin was 7.5. She wanted to hold off on transfusion at that time as she was not symptomatic. Today, with the hemoglobin of 7 and symptoms of dizziness and lightheadedness, we will go ahead with further transfusion and place Xarelto on hold. PFSH Medical History Diabetes mellitus type 2-on insulin Atherosclerotic heart disease with HI in 2014 Hypertension Hyperlipidemia Diabetic neuropathy Hard of hearing History of mitral doubt disorder CHF Depression Left renal artery occlusion Possible previous TIA/CVA Surgical History: 1. Left humerus ORIF 11/01/16. 2. Cardiac catheterization 04/01 - no stents; mild multivessel disease. 3. Echo 04/01/15 - EF 56%; moderate mitral stenosis and mild to moderate mitral regurgitation; mild tricuspid regurgitation; moderate pulmonary hypertension. 4. T&A. 5. Appendectomy. 6. Right breast [id number] 1967. 7. Hernia repair age 33. 4. Hysterectomy 1974. 5. Breast biopsy 1967 - benign. 6. Appendectomy 1955. 7. Bilateral cataract procedure. 8. Right second toe amputation 2006 - Social History Smoking status: Never smoker Substance use type: does not use Alcohol intake frequency: does not drink Housing: apartment Household members: children (daughter currently lives with her) Current occupational status: retired Current residence: Apartment/Private Home Social history: The patient lives in [facility] and also [place]. She has no stairs in her home. Her daughter has recently been staying with her the last 3 months or so to offer additional help. Patient was for 45 years with her having June 2004. PCP-Dr. Nelson Review of Systems All systems PM: 10-point ROS was reviewed, no additional remarkable complaints except - Constitutional Constitutional: Present: other (dizziness) - Genitourinary Genitourinary: Present: other (Patient just had her Rider catheter removed about 40 minutes prior to my visit.) - Neurological Neurological: Present: other (lightheaded) Medications Home Medications Medication Instructions Recorded Confirmed Type Aspirin 81 mg PO HS #0 07/20/15 05/11/17 History Atorvastatin Calcium 40 mg PO HS #0 07/20/15 05/11/17 History Citalopram Hydrobromide 20 mg PO DAILY #0 07/20/15 05/11/17 History [Citalopram HBr] Labetalol HCl 300 mg PO BID #0 10/23/16 05/11/17 History Metformin HCl 1,000 mg PO BIDWM #0 10/23/16 05/11/17 History Potassium Chloride 10 mg PO DAILY #0 10/23/16 05/11/17 History Furosemide [Lasix] 40 mg PO DAILY 03/15/17 05/11/17 History Losartan [Cozaar] 100 mg PO HS 03/15/17 05/11/17 History Rivaroxaban [Xarelto] 20 mg PO WS 03/15/17 05/11/17 History APAP/Diphenhydramine 500/25 2 tab PO HS 05/07/17 05/11/17 History [Tylenol Pm] Insulin Aspart [NovoLOG] 10 unit SQ TIDWM 05/07/17 05/11/17 History Oxycodone/Acetaminophen 5/325 1 - 2 tab PO Q4HR PRN 05/07/17 05/11/17 History [Percocet 5/325] Tramadol [Ultram] 50 mg PO Q4-6HR PRN 05/07/17 05/11/17 History Ubidecarenone [Coenzyme Q10] 100 mg PO DAILY 05/07/17 05/11/17 History Allergies Allergy/AdvReac Type Severity Reaction Status Date / Time codeine Allergy Unknown Light-Heade Verified 05/11/17 20:36 dness Exam Vital Signs: Temperature 98.5 F 05/12/17 08:00 Pulse Rate 80 05/12/17 08:00 Respiratory Rate 18 05/12/17 08:00 Blood Pressure 157/67 H 05/12/17 08:00 Pulse Oximetry 93 05/12/17 08:00 Height/Weight/BMI: Height 1.52 m Weight 92.7 kg Body Mass Index 39.9 - Constitutional Present: no acute distress, well nourished, well developed, obese - Routine HEENT Exam Head: Present: normocephalic, atraumatic Eye: Present: EOMI. Absent: conjunctival icterus ENT: Present: mucous membranes moist, oropharynx clear, dentition normal - Routine Neck Exam Present: supple. Absent: lymphadenopathy - Routine Respiratory Exam Present: CTA bilaterally (limited exam due to patient lying flat in bed.). Absent: wheezes - Routine Cardiovascular Exam Present: RRR (some irregularity at times, but not consistent). Absent: murmur - Routine Abdominal Exam Present: soft, normoactive bowel sounds, non distended. Absent: tenderness - Routine Extremities Exam Present: no edema, normal capillary refill - Routine Skin Exam Present: dry, warm - Routine Neurological Exam Present: CN II-XII intact. Absent: alert (keeps eyes closed during most of exam , appears tired) - Routine Psychiatric Exam Present: normal affect, cooperative Results - Labs CBC & Chem 7: 05/12/17 05:40 05/12/17 05:40 Assessment and Plan (1) Acute blood loss anemia Current visit: Yes Status: Acute (2) ASHD (arteriosclerotic heart disease) Current visit: Yes Status: Chronic (3) Diabetes mellitus Current visit: Yes Status: Chronic (4) Femur fracture, left Current visit: No Status: Acute Assessment and Plan: Impression Status post open reduction internal fixation of left distal femur fracture (Dr. 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 Philippe. Appreciate the consult. Hold Xarelto given continuing drop in hemoglobin despite transfusions. Change ASA 81mg to 325 BID until Xarelto is resumed. Transfuse 1 unit PRBCs now. Repeat CBC, BMP in am to follow hgb and renal function/electrolytes. Monitor blood sugars and adjust insulin as needed. Care to return to Dr. Nelson on discharge. Hospital Course Summary Disclaimer: The visit summary below is not to be considered part of the above Progress Note. Hospital Course: Impression Status post open reduction internal fixation of left distal femur fracture (Dr. 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 Philippe. Appreciate the consult. Hold Xarelto given continuing drop in hemoglobin despite transfusions. Change ASA 81mg to 325 BID until Xarelto is resumed. Transfuse 1 unit PRBCs now. Repeat CBC, BMP in am to follow hgb and renal function/electrolytes. Monitor blood sugars and adjust insulin as needed. Care to return to Dr. Nelson on discharge. <Pesco,Gomez P - Last Filed: 05/18/17 22:19> Consult Information - Data of Consult Requesting Physician: Jonathan Philippe MD Primary Care Provider: Miriam Nelson MD Family Provider: Miriam Nelson MD [facility] Patient Stated Medical History Cerebrovascular Accident Yes Paralysis Yes: Left arm and leg Transient Ischemic Attacks ( Yes TIA) Cataracts Yes: Both eyes Hearing Loss Yes: Both ears Coronary Artery Disease Yes Hypertension Yes Myocardial Infarction Yes Pneumonia Yes Pulmonary Embolism Yes: 2017 Sleep Apnea No Diabetes Mellitus Type 1 Yes Diabetes Mellitus Type 2 Yes Constipation No Gastroesophageal Reflux Yes Disease Hiatal Hernia Yes Hx Incontinence No Hx Kidney Stones Yes Hx Urinary Tract Infection Yes Clotting Problems Yes: Hx: Rt DVT, PE Osteoarthritis Yes Anesthesia Reactions Yes: HARD TO WAKE UP Blood Transfusions Yes Other Yes: recurrent UTI, L retinal artery occlusion Depression Yes Post Menopausal Yes Now No Clinic Medical History Femur fracture, left (Acute Medical) Diabetes mellitus (Chronic Medical) Acute blood loss anemia (Acute Medical) Benign essential hypertension (Chronic Medical) ASHD (arteriosclerotic heart disease) (Chronic Medical) History of deep venous thrombosis or pulmonary embolus (Acute Medical) Diarrhea (Resolved Medical) Left knee pain (Inactive Medical) Thoracic back pain (Inactive Medical) UTI (urinary tract infection) (Inactive Medical) Exam Vital Signs: Temperature 98.1 F 05/18/17 19:55 Pulse Rate 80 05/18/17 19:55 Respiratory Rate 20 05/18/17 19:55 Blood Pressure 159/71 H 05/18/17 19:55 Pulse Oximetry 97 05/18/17 19:55 Height/Weight/BMI: Height 5 ft Weight 95 kg Body Mass Index 39.9 Results - Labs CBC & Chem 7: 05/18/17 05:30 05/15/17 04:47 Assessment and Plan (1) Femur fracture, left Current visit: No Status: Acute (2) Diabetes mellitus Current visit: Yes Status: Chronic (3) Acute blood loss anemia Current visit: Yes Status: Acute (4) ASHD (arteriosclerotic heart disease) Current visit: Yes Status: Chronic (5) History of deep venous thrombosis or pulmonary embolus Current visit: Yes Status: Acute Assessment and Plan: Seen and examined patient on same day as the above note. Agree with history, physical, assessment and plan. Comprehensive physical findings correlate to the above note. Documented on Dragon speech to text. Efforts to correct speech recognition errors performed, but variation may exist. Noted impression is mitral valve disorder above Hospital Course Summary Disclaimer: The visit summary below is not to be considered part of the above Progress Note.
[2017-05-12] MEDS ORDERED: NS FLUSH BAG 500ml IV PRN (16:04)
[2017-05-12] MEDS: APAP/DIPHENHYDRAMINE 500 MG/25 MG TABLET PO SCH (22:28)
[2017-05-12] MEDS: ATORVASTATIN 40 MG TABLET PO SCH (22:29)
[2017-05-12] MEDS: LOSARTAN 100 MG TABLET PO SCH (22:47)
[2017-05-12] MEDS: INSULIN GLARGINE 100unit/ml INJECTION SQ SCH (22:48)
[2017-05-13] MEDS: Oxycodone/Acetaminophen 5/325 1 TAB PO PRN ×3 (00:46→21:31)
[2017-05-13] MEDS: SALINE FLUSH 10ml SYRINGE IV PRN ×2 (02:40)
[2017-05-13] MEDS: METFORMIN 500 MG TABLET PO SCH ×2 (09:05→18:19)
[2017-05-13] MEDS: CITALOPRAM 20 MG TABLET PO SCH (09:06)
[2017-05-13] MEDS: COENZYME Q-10 200mg TABLET PO SCH (09:06)
[2017-05-13] MEDS: ASPIRIN, BUFFERED 325 MG TABLET PO SCH ×2 (09:06→21:29)
[2017-05-13] MEDS: LABETALOL 100 MG TABLET PO SCH ×2 (09:07→21:30)
[2017-05-13] MEDS: FUROSEMIDE 20 MG TABLET PO SCH (09:07)
[2017-05-13] MEDS: POLYETHYL GLYCOL 3350 17gm PACKET PO SCH (09:09)
[2017-05-13] MEDS: SENNA + DOCUSATE TABLET PO SCH ×2 (09:09→21:31)
[2017-05-13] MEDS: INSULIN ASPART 100unit/ml INJECTION SQ SCH ×3 (09:17→18:19)
[2017-05-13] MEDS: INSULIN GLARGINE 100unit/ml INJECTION SQ SCH (21:29)
[2017-05-13] MEDS: ATORVASTATIN 40 MG TABLET PO SCH (21:29)
[2017-05-13] MEDS: LOSARTAN 100 MG TABLET PO SCH (21:31)
[2017-05-14] MEDS: APAP/DIPHENHYDRAMINE 500 MG/25 MG TABLET PO SCH ×2 (04:54→20:16)
[2017-05-14] MEDS: COENZYME Q-10 200mg TABLET PO SCH (09:19)
[2017-05-14] MEDS: METFORMIN 500 MG TABLET PO SCH ×2 (09:20→18:05)
[2017-05-14] MEDS: INSULIN ASPART 100unit/ml INJECTION SQ SCH ×3 (09:20→18:05)
[2017-05-14] MEDS: FUROSEMIDE 20 MG TABLET PO SCH (09:21)
[2017-05-14] MEDS: CITALOPRAM 20 MG TABLET PO SCH (09:21)
[2017-05-14] MEDS: ASPIRIN, BUFFERED 325 MG TABLET PO SCH (09:21)
[2017-05-14] MEDS: POLYETHYL GLYCOL 3350 17gm PACKET PO SCH (09:21)
[2017-05-14] MEDS: LABETALOL 100 MG TABLET PO SCH ×2 (09:21→20:16)
[2017-05-14] MEDS: SENNA + DOCUSATE TABLET PO SCH ×2 (09:22→20:17)
--- NOTE | 2017-05-14 14:34 | IRU Plan of Care ---
U Overall Plan of Care - Date Date: 05/14/17 - Patient Impairments (1) Acute blood loss anemia Code(s): D62 - Acute posthemorrhagic anemia Status: Acute Classification: Present on IRF Admission, IRF Tx That Should Address Diagnosis, Diagnosis Requiring Medical Follow Up (2) ASHD (arteriosclerotic heart disease) Code(s): I25.10 - Atherosclerotic heart disease of [place] coronary artery without angina pectoris Status: Chronic Classification: Present on IRF Admission, Diagnosis Requiring Medical Follow Up (3) Diabetes mellitus Qualifiers: Diabetes mellitus type: type 2 Diabetes mellitus complication status: with neurologic complications Diabetes mellitus complication detail: with polyneuropathy Diabetes mellitus senior care insulin use: with senior care use Qualified Code(s): E11.42 - Type 2 diabetes mellitus with diabetic polyneuropathy; Z79.4 - FPC (current) use of insulin; Z79.4 - ocean transportation intermediary ( current) use of insulin; Z79.4 - FPC (current) use of insulin; Z79.4 - FPC (current) use of insulin Code(s): E11.9 - Type 2 diabetes mellitus without complications Status: Chronic Classification: Present on IRF Admission, IRF Tx That Should Address Diagnosis, Diagnosis Requiring Medical Follow Up (4) Femur fracture, left Qualifiers: Encounter type: initial encounter Femur location: distal epiphysis Fracture type: closed Code(s): S72.92XA - Unspecified fracture of left femur, initial encounter for closed fracture Status: Acute Classification: IRF Tx That Should Address Diagnosis, Diagnosis Requiring Medical Follow Up - Relevant Changes Relevant Changes: No Reviewed: I have reviewed the patient's information and concur with the finding and results of the pre-admission screen. Certification: I certify the patient for rehabilitation. - Medical Prognosis Medical Prognosis: Good Vital Signs: Last Vital Signs Temp 98.1 F 05/14/17 08:00 Pulse 73 05/14/17 08:00 Resp 16 05/14/17 08:00 BP 152/71 H 05/14/17 08:00 Pulse Ox 95 05/14/17 08:00 - Anticipated Interventions Anticipated Interventions: The patient requires inpatient IRF care for PT, OT, and/or ST for residuals remaining from left distal femur fracture resulting in muscular weakness and strength deficits. ROM Deficit: Left Lower Extremity Strength Deficits: Left Upper Extremity, Left Lower Extremity - Current Functional Status Failed Alternative Therapy: Arrived from Acute Care Patient Requires: The patient requires oversight by rehabilitation physician to manage their rehabilitation treatment plan and multidisciplinary approach to care that can only be provided in an IRF and requires a multidisciplinary approach to care, provided by professional PTs, OTs, STs, rehabilitation nurses, and may require STs, dieticians, and RTS. This is not available in lesser levels of care. Physical Therapy Minutes: 90 Occupational Therapy Minutes: 90 Therapy: The patient is to receive therapy at least 5 days a week. - Anticipated LOS/Outcomes Anticipated Functional Outcome: it is anticipated the patient will be able to function at a modified independent level or better and be able to return to her previous living situation. Anticipated Length of Stay (days): 7 Anticipated DC Destination: Home, Self Care, Home Health Service Home Safety Plan: The patient will be provided with the development of a Home Safety Plan for return to a home or home-like environment and and to ensure safety post discharge. - Plan to Avoid Complications Barriers to Attaining Goals: Weakness, Endurance Plan to Avoid Complications: The patient cannot receive this care in a lesser intensive setting such as Detention or Outpatient Therapy due to the patient requiring the following : Close monitoring of blood count and evidence of lightheadedness in view of the anemia, close monitoring of blood sugars to monitor for hyperglycemia or hypoglycemia, 24-hour rehabilitation nursing monitoring of wound for evidence of wound infection as well as training to reduce risk of falls and risk of readmission. .
--- NOTE | 2017-05-14 15:10 | Progress Note ---
- Date 05/14/17 Subjective: Shantal is seen today in follow up. She is doing very well, is very happy with her care. Reports that she is recovery well. Reports a history of frequent falls over the last few weeks. She states that she has also had several near falls, which she has been able to catch herself with her walker. She reports that she frequently falls due to left knee giving out. States that she has been having difficulty with decrease motor ability in left leg, and did see neurology who informed her that she likely had a stroke. she also fell and had a shoulder repair in October of this year. She does have a hx of DVT/PE following her October fracture, and was previously on Xarelto. Objective Vital signs: Temperature 98.1 F 05/14/17 08:00 Pulse Rate 73 05/14/17 08:00 Respiratory Rate 16 05/14/17 08:00 Blood Pressure 152/71 H 05/14/17 08:00 Pulse Oximetry 95 05/14/17 08:00 Height/Weight/BMI: Height 1.52 m Weight 92.8 kg Body Mass Index 39.9 - Constitutional Present: no acute distress, well nourished, well developed, obese, cooperative - Routine HEENT Exam Head: Present: normocephalic, atraumatic Eye: Present: EOMI, PERRL ENT: Present: mucous membranes moist - Routine Respiratory Exam Present: decreased breath sounds, CTA bilaterally. Absent: rhonchi, wheezes, crackles - Routine Cardiovascular Exam Present: RRR, S1, S2, no murmur - Routine Abdominal Exam Present: soft, non distended, non tender - Routine Extremities Exam Present: edema (Mild LE edema. ) - Routine Musculoskeletal Exam Musculoskeletal: Present: moving extremities well, limited range of motion - Routine Skin Exam Present: intact, dry, urticaria - Routine Neurological Exam Present: alert, moving all extremities - Routine Psychiatric Exam Present: normal affect, normal thought process, cooperative Results - Labs CBC & Chem 7: 05/13/17 03:45 05/13/17 03:45 Assessment and Plan (1) Femur fracture, left Current visit: No Status: Acute (2) Diabetes mellitus Current visit: Yes Status: Chronic (3) Acute blood loss anemia Current visit: Yes Status: Acute (4) ASHD (arteriosclerotic heart disease) Current visit: Yes Status: Chronic (5) History of deep venous thrombosis or pulmonary embolus Current visit: Yes Status: Acute Assessment and Plan: Impression Status post open reduction internal fixation of left distal femur fracture (Dr. 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 Concern with ABLA post op; Xarelto on hold. Hx DVT/PE post op in November. She 5-6 months into treatment for prior PE. May be able to decrease treatment to preventative dosing if bleeding remains an issue. Will decrease ASA back to 81mg and start LMWH @ 40mg/day. If labs are stable tomorrow, may be able to restart NOAC. AM BG continues to run lower- usually fasting is issue. Decrease long acting insulin to 35 units Q HS. BP is a bit elevated- she is on home dosing. Continue to observe- may need to add additional agents. Repeat labs in AM for stability. DVT Prophylaxis: Xarelto Resuscitation Status: Do Not Resuscitate - Time spent with patient Time with patient PN: 35 minutes Hospital Course Summary Disclaimer: The visit summary below is not to be considered part of the above Progress Note. Hospital Course: Impression Status post open reduction internal fixation of left distal femur fracture (Dr. 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 Philippe. Appreciate the consult. Hold Xarelto given continuing drop in hemoglobin despite transfusions. Change ASA 81mg to 325 BID until Xarelto is resumed. Transfuse 1 unit PRBCs now. Repeat CBC, BMP in am to follow hgb and renal function/electrolytes. Monitor blood sugars and adjust insulin as needed. Care to return to Dr. Nelson on discharge. 05/14/17 15:17 Patient is doing well. Concern with ABLA post op; Xarelto on hold. Hx DVT/PE post op in November. She 5-6 months into treatment for prior PE. May be able to decrease treatment to preventative dosing if bleeding remains an issue. Will decrease ASA back to 81mg and start LMWH @ 40mg/day. If labs are stable tomorrow, may be able to restart NOAC. AM BG continues to run lower- usually fasting is issue. Decrease long acting insulin to 35 units Q HS. BP is a bit elevated- she is on home dosing. Continue to observe- may need to add additional agents. Repeat labs in AM for stability.
[2017-05-14] MEDS: LOSARTAN 100 MG TABLET PO SCH (20:16)
[2017-05-14] MEDS: ATORVASTATIN 40 MG TABLET PO SCH (20:16)
[2017-05-14] MEDS: INSULIN GLARGINE 100unit/ml INJECTION SQ SCH (21:11)
[2017-05-14] MEDS: Oxycodone/Acetaminophen 5/325 1 TAB PO PRN (21:11)
[2017-05-15] MEDS: Oxycodone/Acetaminophen 5/325 1 TAB PO PRN ×3 (01:19→21:24)
[2017-05-15] MEDS: METFORMIN 500 MG TABLET PO SCH ×2 (08:50→17:50)
[2017-05-15] MEDS: FUROSEMIDE 20 MG TABLET PO SCH (08:50)
[2017-05-15] MEDS: CITALOPRAM 20 MG TABLET PO SCH (08:50)
[2017-05-15] MEDS: COENZYME Q-10 200mg TABLET PO SCH (08:50)
[2017-05-15] MEDS: ASPIRIN *EC* 81 MG TABLET PO SCH (08:52)
[2017-05-15] MEDS: LABETALOL 100 MG TABLET PO SCH ×2 (08:52→21:24)
[2017-05-15] MEDS: INSULIN ASPART 100unit/ml INJECTION SQ SCH ×3 (08:53→17:50)
[2017-05-15] MEDS: ENOXAPARIN 40 MG/0.4 ML INJECTION SQ SCH (08:53)
[2017-05-15] MEDS: SENNA + DOCUSATE TABLET PO SCH ×2 (08:54→20:59)
[2017-05-15] MEDS: POLYETHYL GLYCOL 3350 17gm PACKET PO SCH (08:54)
--- NOTE | 2017-05-15 10:19 | IRU Progress Note ---
- Subjective/Serverity of Illness Ms. Ayers was evaluated on the acute inpatient rehabilitation unit. She is cooperative with therapy. She is improving significantly with stand pivot transfers with the right leg. She remains nonweightbearing in the left leg and will need to propel in a wheelchair at home. She will be nonweightbearing for at least 6 weeks. The patient denies any shortness of breath or chest pain. However over the weekend she had about 7 stools per day which were loose. She blames this on a previous antibiotic. In addition, she has vomited after her medications. She does not believe this is due to pain or pain pills. We will check some stool tests. Update on medical issues which we are actively monitoring and/or managin. Diabetes mellitus: Her blood sugars are reviewed. Most are doing well. Had one value of 78. Due to the nausea and vomiting her blood sugars need to be closely monitored and she may have some hypoglycemic episodes. 2. History of coronary artery disease with congestive heart failure: She denies significant shortness of breath with activity. There is no report of chest discomfort. 3. 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 She is now on low-dose prophylactic Lovenox. 4. Pain management: this seems to be going well. 5. She is at risk for surgical site infection in view of her obesity and diabetes mellitus: There is no evidence of infection at present. 6. Anemia: Hemoglobin did drop to 7.0. For this reason Xarelto was held. She was given 1 unit of packed red blood cells on May 13. Hemoglobin this morning is looking good at 8.6. Exam Vital Signs: Temperature 98.0 F 05/15/17 07:29 Pulse Rate 74 05/15/17 07:29 Respiratory Rate 18 05/15/17 07:29 Blood Pressure 163/71 H 05/15/17 09:05 Pulse Oximetry 99 05/15/17 00:00 Height/Weight/BMI: Height 1.52 m Weight 92.8 kg Body Mass Index 39.9 Comments: The patient is awake, alert and oriented and in no acute distress. Pupils are equal. The neck is supple. Chest: Clear to auscultation bilaterally. Cor: RR with no gallop, click nor murmur Abd: soft with normo-active bowel sounds. There are no masses, no tenderness and no guarding. Extremities: No edema is noted. Results IRU - Labs Labs: sugars, labs, other provider's notes IRU A/P (1) Acute blood loss anemia Current visit: Yes Status: Acute Hemoglobin has improved after transfusion of 1 unit of packed red blood cells. Xarelto remains on hold. She is on low-dose Lovenox. (2) ASHD (arteriosclerotic heart disease) Current visit: Yes Status: Chronic She denies chest pain at present. (3) Diabetes mellitus Qualifiers: Diabetes mellitus type: type 2 Diabetes mellitus complication status: with neurologic complications Diabetes mellitus complication detail: with polyneuropathy Diabetes mellitus long term acute care registered nurse insulin use: with care home use Qualified Code(s): E11.42 - Type 2 diabetes mellitus with diabetic polyneuropathy; Z79.4 - halfway (current) use of insulin; Z79.4 - intermodal dispatcher ( current) use of insulin; Z79.4 - halfway (current) use of insulin; Z79.4 - halfway (current) use of insulin Current visit: Yes Status: Chronic Her blood sugars are reasonably well controlled. However with the new onset of nausea and vomiting she is at risk for hypoglycemia and we will monitor this carefully. (4) Femur fracture, left Qualifiers: Encounter type: initial encounter Femur location: distal epiphysis Fracture type: closed Current visit: No Status: Acute The patient is nonweightbearing on the left leg. She is improving with stand pivot transfers but will require wheelchair for ambulation at home. (5) Diarrhea Qualifiers: Diarrhea type: unspecified type Qualified Code(s): R19.7 - Diarrhea, unspecified Current visit: Yes Status: Acute Has developed frequent loose stools over the weekend. Etiology not certain and this will be assessed. DVT Prophylaxis: Xarelto Resuscitation Status: Do Not Resuscitate - Course Hospital Course: Jonathan Philippe MD: 05/15/17 10:25 She has new development of diarrhea over the weekend along with nausea and vomiting. Blood sugars are noted. She is improving with transfers Working on safety awareness and balance. - Interventions to Obtain Goals PT Treatment Plan: Balance/Proprioception, Functional Activities, Gait Training , Patient/Family Education, Therapeutic Exercise OT Treatment Plan: ADL (Basic Care), Balance Training, Pt./Family Education, Ther. Exercise for ADL Goals Progress/Modifications: Time spent with patient and on floor reviewing data and documentin min Barriers to dismissal: Balance, safety with transfers, anemia, diarrhea Medical decision-making: We are watching her blood count carefully. She received a unit of packed red blood cells 3 days ago. Hemoglobin is improved today. No evidence of active bleeding. She has developed frequent loose stools over the weekend. We will assess this with C. difficile and other tests. She has also developed nausea and vomiting and for this reason her blood sugars may be quite variable. This will be monitored carefully.
[2017-05-15] MEDS ORDERED: DEXTROSE 50% INJECTION 50ml VIAL IV ONE (16:09)
[2017-05-15] MEDS: APAP/DIPHENHYDRAMINE 500 MG/25 MG TABLET PO SCH (20:58)
[2017-05-15] MEDS: LOSARTAN 100 MG TABLET PO SCH (21:24)
[2017-05-15] MEDS: ATORVASTATIN 40 MG TABLET PO SCH (21:24)
[2017-05-15] MEDS: SALINE FLUSH 10ml SYRINGE IV PRN (21:29)
[2017-05-15] MEDS: INSULIN GLARGINE 100unit/ml INJECTION SQ SCH (21:33)
[2017-05-16] MEDS: FUROSEMIDE 20 MG TABLET PO SCH (09:04)
[2017-05-16] MEDS: LABETALOL 100 MG TABLET PO SCH ×2 (09:04→21:08)
[2017-05-16] MEDS: ENOXAPARIN 40 MG/0.4 ML INJECTION SQ SCH (09:04)
[2017-05-16] MEDS: ASPIRIN *EC* 81 MG TABLET PO SCH (09:04)
[2017-05-16] MEDS: SENNA + DOCUSATE TABLET PO SCH ×2 (09:04→21:10)
[2017-05-16] MEDS: POLYETHYL GLYCOL 3350 17gm PACKET PO SCH (09:04)
[2017-05-16] MEDS: METFORMIN 500 MG TABLET PO SCH ×2 (09:06→18:00)
[2017-05-16] MEDS: CITALOPRAM 20 MG TABLET PO SCH (09:07)
[2017-05-16] MEDS: INSULIN ASPART 100unit/ml INJECTION SQ SCH ×3 (09:14→18:00)
[2017-05-16] MEDS: COENZYME Q-10 200mg TABLET PO SCH (10:05)
[2017-05-16] MEDS: Oxycodone/Acetaminophen 5/325 1 TAB PO PRN ×3 (10:07→21:09)
--- NOTE | 2017-05-16 10:16 | IRU Progress Note ---
- Subjective/Serverity of Illness Shantal is working diligently with therapies. She does have some dyspnea with activity. She denies any chest pain. She did note a hypoglycemic episode down to about 35 or so yesterday after working with therapy. She denies any cough or sputum. Her bowels are moving better. She did have some loose stools over the weekend but they have been formed since then and fairly large quantity. Because they are formed, we will hold on the C. difficile stool assessment. She denies any abdominal pain. Her appetite is a bit better. She states that ever since she had intravenous antibiotics for a UTI sometime ago that her digestive system has been messed up. Her blood pressure today is elevated. However she was somewhat excited and/or upset. It was up to 200. It has been coming down since that time but we are monitoring this carefully. It is noted that she is on losartan 100 mg daily plus labetalol plus furosemide already. Exam Vital Signs: Temperature 97.7 F 05/16/17 08:00 Pulse Rate 79 05/16/17 08:00 Respiratory Rate 20 05/16/17 08:00 Blood Pressure 192/80 H 05/16/17 08:00 Pulse Oximetry 96 05/16/17 08:00 Height/Weight/BMI: Height 1.52 m Weight 92.8 kg Body Mass Index 39.9 Comments: The patient is awake, alert and oriented and in no acute distress. Pupils are equal. The neck is supple. Chest: Clear to auscultation bilaterally. Cor: RR with no gallop, click nor murmur Abd: soft with normo-active bowel sounds. There are no masses, no tenderness and no guarding. Extremities: No edema is noted. There are good pulses in both ankles. No cyanosis is present. The patient's wound in the left distal femur is clean and dry and without inflammation. Results IRU - Labs Labs: Review blood sugars over the last 48 hours as well as blood work from yesterday. Hemoglobin is 8.6. IRU A/P (1) Acute blood loss anemia Current visit: Yes Status: Acute Hemoglobin appears to be stable at the present time. Has no evidence of ongoing blood loss at this time. (2) ASHD (arteriosclerotic heart disease) Current visit: Yes Status: Chronic Denies any chest pains. (3) Diabetes mellitus Qualifiers: Diabetes mellitus type: type 2 Diabetes mellitus complication status: with neurologic complications Diabetes mellitus complication detail: with polyneuropathy Diabetes mellitus termite technician insulin use: with termite technician use Qualified Code(s): E11.42 - Type 2 diabetes mellitus with diabetic polyneuropathy; Z79.4 - terminal system operator (current) use of insulin; Z79.4 - [facility] ( current) use of insulin; Z79.4 - [facility] (current) use of insulin; Z79.4 - terminal system operator (current) use of insulin Current visit: Yes Status: Chronic Her blood sugars are variable. She has had some hypoglycemic numbers in relationship to therapy. We will work on ensuring adequate oral intake. (4) Femur fracture, left Qualifiers: Encounter type: initial encounter Femur location: distal epiphysis Fracture type: closed Current visit: No Status: Acute Incision looks good. No evidence of inflammation. (5) Diarrhea Qualifiers: Diarrhea type: unspecified type Qualified Code(s): R19.7 - Diarrhea, unspecified Current visit: Yes Status: Resolved Had reported numerous loose stools over the weekend. Now she is having larger formed stools. We will hold on the C. difficile analysis at present until and if she has loose stools again. (6) Benign essential hypertension Current visit: Yes Status: Chronic Her blood pressure has jumped up this morning. This may well be due to increased emotional anxiety. We will monitor this carefully. She is artery on labetalol plus furosemide plus losartan in reasonably high doses. DVT Prophylaxis: Xarelto Resuscitation Status: Do Not Resuscitate - Course Hospital Course: Jonathan Philippe MD: 05/15/17 10:25 She has new development of diarrhea over the weekend along with nausea and vomiting. Blood sugars are noted. She is improving with transfers Working on safety awareness and balance. 05/16/17 10:18 Her diarrhea has resolved. We will hold on the C. difficile analysis. Her blood sugars have been a bit low at times in relationship to therapy. She is improving with therapy. Her blood pressure is now elevated and this will be monitored carefully. - Interventions to Obtain Goals PT Treatment Plan: Balance/Proprioception, Functional Activities, Gait Training , Patient/Family Education, Therapeutic Exercise OT Treatment Plan: ADL (Basic Care), Balance Training, Pt./Family Education, Ther. Exercise for ADL Goals Progress/Modifications: Time spent with patient and on floor reviewing data and documentin min Barriers to dismissal: Endurance, balance, safety awareness Medical decision-making: The patient has developed episodes of hypoglycemia in relationship to therapy. We will work on ensuring adequate oral intake to prevent these. Secondly, her previously noted loose stools over the weekend have apparently resolved. I suppose this could've been related to obstipation with passage of stool around the larger bowel movement. In any event, her stools are improved and are now formed. Finally, her blood pressure is markedly elevated this morning possibly related to some emotional stress. We will monitor this carefully and work with the hospitalists to increase medication if needed.
--- NOTE | 2017-05-16 10:23 | Progress Note ---
Progress Note: Repeat BP 160's now.
[2017-05-16] MEDS: APAP/DIPHENHYDRAMINE 500 MG/25 MG TABLET PO SCH (21:01)
[2017-05-16] MEDS: LOSARTAN 100 MG TABLET PO SCH (21:08)
[2017-05-16] MEDS: ATORVASTATIN 40 MG TABLET PO SCH (21:08)
[2017-05-16] MEDS: INSULIN GLARGINE 100unit/ml INJECTION SQ SCH (21:08)
[2017-05-17] MEDS: Oxycodone/Acetaminophen 5/325 1 TAB PO PRN ×4 (01:40→22:27)
[2017-05-17] MEDS: COENZYME Q-10 200mg TABLET PO SCH (09:10)
[2017-05-17] MEDS: INSULIN ASPART 100unit/ml INJECTION SQ SCH ×3 (09:11→18:04)
[2017-05-17] MEDS: METFORMIN 500 MG TABLET PO SCH ×2 (09:12→18:04)
[2017-05-17] MEDS: CITALOPRAM 20 MG TABLET PO SCH (09:13)
[2017-05-17] MEDS: ASPIRIN *EC* 81 MG TABLET PO SCH (09:13)
[2017-05-17] MEDS: ENOXAPARIN 40 MG/0.4 ML INJECTION SQ SCH (09:14)
[2017-05-17] MEDS: FUROSEMIDE 20 MG TABLET PO SCH (09:14)
[2017-05-17] MEDS: SENNA + DOCUSATE TABLET PO SCH ×2 (09:15→22:27)
[2017-05-17] MEDS: LABETALOL 100 MG TABLET PO SCH ×2 (09:15→22:26)
[2017-05-17] MEDS: POLYETHYL GLYCOL 3350 17gm PACKET PO SCH (09:15)
--- NOTE | 2017-05-17 10:12 | IRU Progress Note ---
- Subjective/Serverity of Illness Ms. Ayers was interviewed and examined in her room on the inpatient rehabilitation unit. She is progressing with therapy. Her previously noted nausea and bowel problems have seemingly resolved after having several good bowel movements. She denies any chest pain or shortness of breath. Pain is adequately controlled. She is not sleeping well but she blames this on the mattress. Her blood pressures are reviewed and are running a bit high at the present time. Hospitalists have been advised. Update on medical issues which we are actively monitoring and/or managin. Diabetes mellitus: Blood sugars are again reviewed. Overall they seem to be fairly well controlled. 2. History of coronary artery disease with congestive heart failure: Her lungs remain clear at the present time and she seems to be compensated. 3. History of DVT and pulmonary embolus in November 2016 currently on anticoagulant: Xarelto remains on hold the present time. She has had no symptoms of DVT nor pulmonary embolus. 4. Pain management: She reports that her discomfort is adequately controlled at the present time. 5. She is at risk for surgical site infection in view of her obesity and diabetes mellitus: There is no evidence of infection at present. 6. Anemia: No further evidence of acute GI blood loss. We will repeat the hemoglobin. 7. Hypertension: Her blood pressures running a bit high. However she is on fairly maximal doses of medication at present. Uncertain if this is related to some anxiety or hard work etc. Exam Vital Signs: Temperature 98.7 F 05/17/17 08:00 Pulse Rate 76 05/17/17 08:00 Respiratory Rate 16 05/17/17 08:00 Blood Pressure 163/74 H 05/17/17 08:00 Pulse Oximetry 95 05/17/17 08:00 Height/Weight/BMI: Height 1.52 m Weight 92.8 kg Body Mass Index 39.9 Comments: The patient is awake, alert and oriented and in no acute distress. Pupils are equal. The neck is supple. Chest: Clear to auscultation bilaterally. Cor: RR with no gallop, click nor murmur Abd: soft with normo-active bowel sounds. There are no masses, no tenderness and no guarding. Extremities: No edema is noted.. No cyanosis is present. The patient's wound in the left lower extremity is clean and dry and without inflammation. Results IRU - Labs Labs: I have reviewed her blood sugars in detail as well as other lab and vital signs. Blood pressures remain a bit high. IRU A/P (1) Acute blood loss anemia Current visit: Yes Status: Acute She has not exhibited evidence of further blood loss. However we will reassess her blood count in the morning. 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 (4) Femur fracture, left Qualifiers: Encounter type: initial encounter Femur location: distal epiphysis Fracture type: closed Current visit: No Status: Acute The wound appears to be healing adequately. She is progressing with therapy. (5) Diarrhea Qualifiers: Diarrhea type: unspecified type Qualified Code(s): R19.7 - Diarrhea, unspecified Current visit: Yes Status: Resolved (6) Benign essential hypertension Current visit: Yes Status: Chronic Once again her blood pressures have jumped up a bit. She is on fairly maximal doses of her antihypertensives. I will defer to the hospitalists at present. DVT Prophylaxis: Xarelto Resuscitation Status: Do Not Resuscitate - Course Hospital Course: Jonathan Philippe MD: 05/15/17 10:25 She has new development of diarrhea over the weekend along with nausea and vomiting. Blood sugars are noted. She is improving with transfers Working on safety awareness and balance. 05/16/17 10:18 Her diarrhea has resolved. We will hold on the C. difficile analysis. Her blood sugars have been a bit low at times in relationship to therapy. She is improving with therapy. Her blood pressure is now elevated and this will be monitored carefully. 05/17/17 10:15 Her GI symptoms seem to have improved. Blood sugars have been improved. Blood pressure is still running a bit elevated. - Interventions to Obtain Goals PT Treatment Plan: Balance/Proprioception, Functional Activities, Gait Training , Patient/Family Education, Therapeutic Exercise OT Treatment Plan: ADL (Basic Care), Balance Training, Pt./Family Education, Ther. Exercise for ADL Goals Progress/Modifications: Time spent with patient and on floor reviewing data and documentin min Barriers to dismissal: Safety awareness, hypertension Medical decision-making: We will reassess her CBC in the morning in view of the recent blood loss anemia with transfusion. She does not have current evidence of acute active bleeding. Denies any lightheadedness. Her GI symptoms have improved. Secondly, her blood pressures are running a bit high. I have reviewed her medications. We will defer to the hospitalist in this regard. She denies any headache etc. at present.
--- NOTE | 2017-05-17 13:54 | IRU Team Meeting ---
IRU Team Meeting - Nursing Vital Signs: Vital Signs - 24 hr 05/16/17 16:00 05/16/17 20:08 05/17/17 08:00 Temperature 98.3 F 98.2 F 98.7 F Pulse Rate 79 74 76 Respiratory Rate 20 22 16 Blood Pressure 150/66 H 182/90 H 163/74 H Pulse Oximetry 93 95 95 Current Medications: Acetaminophen/Diphenhydramine HCl (Tylenol Pm) 2 tab PO HS [facility] Last Admin: 05/16/17 21:01 Dose: Not Given Aspirin (Ecotrin) 81 mg PO DAILY [facility] Last Admin: 05/17/17 09:13 Dose: 81 mg Atorvastatin Calcium (Lipitor) 40 mg PO HS [facility] Last Admin: 05/16/17 21:08 Dose: 40 mg Bisacodyl (Dulcolax) 10 mg RECTALLY DAILY PRN PRN Reason: Constipation Citalopram Hydrobromide (Celexa) 20 mg PO DAILY [facility] Last Admin: 05/17/17 09:13 Dose: 20 mg Coenzyme Q10 (Co Q-10) 100 mg PO DAILY [facility] Last Admin: 05/17/17 09:10 Dose: 100 mg Enoxaparin Sodium (Lovenox) 40 mg SQ DAILY [facility] Last Admin: 05/17/17 09:14 Dose: 40 mg Furosemide (Lasix) 40 mg PO DAILY [facility] Last Admin: 05/17/17 09:14 Dose: 40 mg Insulin Aspart (Novolog) 10 unit SQ TIDWM [facility] Last Admin: 05/17/17 12:23 Dose: 10 unit Insulin Glargine (Lantus) 35 unit SQ [facility] Last Admin: 05/16/17 21:08 Dose: 35 unit Labetalol HCl (Normodyne) 300 mg PO BID [facility] Last Admin: 05/17/17 09:15 Dose: 300 mg Losartan Potassium (Cozaar) 100 mg PO HS [facility] Last Admin: 05/16/17 21:08 Dose: 100 mg Magnesium Hydroxide (Mom) 30 ml PO DAILY PRN PRN Reason: Constipation Metformin HCl (Glucophage) 1,000 mg PO BIDWM [facility] Last Admin: 05/17/17 09:12 Dose: 1,000 mg Oxycodone/Acetaminophen (Percocet 5/325) 1 - 2 tab PO Q4HR PRN PRN Reason: Pain Last Admin: 05/17/17 12:24 Dose: 1 tab Polyethylene Glycol (Miralax) 17 gm PO DAILY [facility] Last Admin: 05/17/17 09:15 Dose: 17 gm Potassium Chloride (K-Dur) 10 meq PO WB [facility] Last Admin: 05/17/17 09:10 Dose: 10 meq Rivaroxaban (Xarelto) 20 mg PO WS [facility] Last Admin: 05/11/17 18:31 Dose: 20 mg Senna/Docusate Sodium (Senna Plus Tablet) 1 tab PO BID [facility] Last Admin: 05/17/17 09:15 Dose: 1 tab Sodium Chloride (Iv Flush) 10 ml IV PRN PRN PRN Reason: Flushing Last Admin: 05/15/17 21:29 Dose: 10 ml Sodium Chloride (Normal Saline) 500 ml IV PRN PRN Last Admin: 05/13/17 00:00 Dose: 500 ml Tramadol HCl (Ultram) 50 mg PO Q4-6HR PRN PRN Reason: Pain Last Admin: 05/12/17 11:42 Dose: 50 mg Current Medical Issues: Diabetes mellitus, acute blood loss anemia, recent DVT/PE (November 2016) Comments: I certify that I personally led the interdisciplinary team meeting and agree with comments, barriers and goals indicated. Team meeting was held in the patient's room with the patient and the following family members present: daughter Shantal has had some hypoglycemic episodes. Efforts are made to give first night prior to her therapy sessions. She is cooperative with therapy. She remains off Xarelto for the time being in view of her recent acute blood loss anemia. She remains on Lovenox by injection. She denies any chest pain. Denies shortness of breath. She was struggling with diarrhea over the weekend. Then subsequently had larger stools and feels much better. There are no formed. Did have some nausea but that is improved as well. - Dietary Remains on 2000-calorie consistent carbohydrate diet. Appetite has been reduced but is improved she states. Did have some nausea but that is improved. - Physical Therapy Comments: She is progressing with physical therapy and is cooperative. She is contact- guard assistance for bed/chair/wheelchair transfers. She is unsafe for unable to perform stair climbing nor ambulation in view of inability to keep weightbearing at touch toe level on the left lower extremity. She does require multiple rest breaks during therapy secondary to generalized fatigue and muscle weakness. Does require constant verbal cues and demonstration's for transfers to maintain safety and to conserve energy. - Occupational Therapy Comments: She is independent with eating. Requires standby assistance and supervision for grooming and upper body dressing. Continues to require minimal assistance for lower body dressing. She is standby assistance for bathing. She is contact- guard assistance for toileting assistance and toilet transfer assistance. She is progressing toward occupational therapy goals and is working to facilitate ADL tasks. - Goals Goals: 1. Lower body dressing with modified independent level 2. Increase coordination in left hand 3. Patient will demonstrate chair to/from bed/chair transfers bilaterally with standby assistance while maintaining left lower extremity toe-touch weightbearing status. - Barriers to Discharge Barriers to Attaining Goals: Weakness, Balance, Endurance, Other (safety awareness, attention to task.) - Care Plan Anticipated DC Destination: Home Health Service I have led this team conference and agree with the plan. Anticipated Length of Stay: Reassess in one week
[2017-05-17] MEDS: APAP/DIPHENHYDRAMINE 500 MG/25 MG TABLET PO SCH (22:25)
[2017-05-17] MEDS: ATORVASTATIN 40 MG TABLET PO SCH (22:26)
[2017-05-17] MEDS: LOSARTAN 100 MG TABLET PO SCH (22:27)
[2017-05-17] MEDS: INSULIN GLARGINE 100unit/ml INJECTION SQ SCH (22:37)
[2017-05-18] MEDS: Oxycodone/Acetaminophen 5/325 1 TAB PO PRN ×3 (05:43→22:09)
[2017-05-18] MEDS: CITALOPRAM 20 MG TABLET PO SCH (09:05)
[2017-05-18] MEDS: METFORMIN 500 MG TABLET PO SCH ×2 (09:05→17:00)
[2017-05-18] MEDS: FUROSEMIDE 20 MG TABLET PO SCH (09:05)
[2017-05-18] MEDS: POLYETHYL GLYCOL 3350 17gm PACKET PO SCH (09:06)
[2017-05-18] MEDS: LABETALOL 100 MG TABLET PO SCH ×2 (09:06→22:10)
[2017-05-18] MEDS: ASPIRIN *EC* 81 MG TABLET PO SCH (09:06)
[2017-05-18] MEDS: ENOXAPARIN 40 MG/0.4 ML INJECTION SQ SCH (09:06)
[2017-05-18] MEDS: COENZYME Q-10 200mg TABLET PO SCH (09:06)
[2017-05-18] MEDS: INSULIN ASPART 100unit/ml INJECTION SQ SCH ×3 (09:07→18:17)
[2017-05-18] MEDS: SENNA + DOCUSATE TABLET PO SCH ×2 (09:08→22:12)
[2017-05-18] MEDS ORDERED: CALCIUM CARBONATE Chewable 500mg TABLET PO PRN (11:24)
[2017-05-18] MEDS: ATORVASTATIN 40 MG TABLET PO SCH (22:09)
[2017-05-18] MEDS: RANITIDINE 300 MG TABLET PO SCH (22:10)
[2017-05-18] MEDS: APAP/DIPHENHYDRAMINE 500 MG/25 MG TABLET PO SCH (22:10)
[2017-05-18] MEDS: LOSARTAN 100 MG TABLET PO SCH (22:10)
[2017-05-18] MEDS: INSULIN GLARGINE 100unit/ml INJECTION SQ SCH (22:11)
[2017-05-19] MEDS: Oxycodone/Acetaminophen 5/325 1 TAB PO PRN ×4 (02:42→22:02)
[2017-05-19] MEDS: COENZYME Q-10 200mg TABLET PO SCH (08:35)
[2017-05-19] MEDS: LABETALOL 100 MG TABLET PO SCH ×2 (08:35→20:42)
[2017-05-19] MEDS: ASPIRIN *EC* 81 MG TABLET PO SCH (08:36)
[2017-05-19] MEDS: METFORMIN 500 MG TABLET PO SCH ×2 (08:36→18:34)
[2017-05-19] MEDS: INSULIN ASPART 100unit/ml INJECTION SQ SCH ×3 (08:36→18:03)
[2017-05-19] MEDS: CITALOPRAM 20 MG TABLET PO SCH (08:37)
[2017-05-19] MEDS: FUROSEMIDE 20 MG TABLET PO SCH (08:37)
[2017-05-19] MEDS: POLYETHYL GLYCOL 3350 17gm PACKET PO SCH (08:38)
[2017-05-19] MEDS: SENNA + DOCUSATE TABLET PO SCH ×2 (08:38→20:47)
[2017-05-19] MEDS: ENOXAPARIN 40 MG/0.4 ML INJECTION SQ SCH (11:06)
--- NOTE | 2017-05-19 12:44 | IRU Progress Note ---
- Subjective/Serverity of Illness Ms. Ayers was evaluated in her room on the inpatient rehabilitation unit. She complains of right flank pain ever since she fell prior to admission. There is not much in the way of midline pain if any at all. She wonders if she can use her own pain patch for this and I did approve that. She has not fallen since. She is tender to palpate in the right flank posteriorly. There is no burning on urination etc. She states that the Salon Pas pain patch helps fairly immediately and so I think this is likely muscular in origin. However for completeness, since she fell, we will check lumbar spine films to make sure there is no obvious compression fracture. Her bowels continue to be a bit sluggish. However her appetite is good. Her blood pressure is reviewed and remains a bit high. She is somewhat anxious. She says that her pain is adequately controlled however. She has received a single unit of packed red cells on May 13. Her hemoglobin actually is improving at 9 g percent. No evidence of active blood loss at present. Her blood sugars are reviewed and are running around 150 up to 200 at times. Exam Vital Signs: Temperature 98.8 F 05/19/17 08:18 Pulse Rate 77 05/19/17 08:18 Respiratory Rate 16 05/19/17 08:18 Blood Pressure 173/63 H 05/19/17 08:18 Pulse Oximetry 96 05/19/17 08:18 Height/Weight/BMI: Height 1.52 m Weight 95 kg Body Mass Index 39.9 Comments: The patient is awake, alert and oriented and in no acute distress. Pupils are equal. The neck is supple. Chest: Clear to auscultation bilaterally. Cor: RR with no gallop, click nor murmur Abd: soft with normo-active bowel sounds. There are no masses, no tenderness and no guarding. Extremities: No edema is noted. Palpation of the right posterior flank was performed. She is slightly tender to palpate in the right posterior flank, likely indicating this is a muscular pain. Results IRU - Labs Labs: Have reviewed recent labs. IRU A/P (1) Acute blood loss anemia Current visit: Yes Status: Acute Repeat hemoglobin yesterday was good at 9 g percent. This is actually increased. No evidence of ongoing blood loss at present. (2) ASHD (arteriosclerotic heart disease) Current visit: Yes Status: Chronic Denies chest pains or significant dyspnea. 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 (4) Femur fracture, left Qualifiers: Encounter type: initial encounter Femur location: distal epiphysis Fracture type: closed Current visit: No Status: Acute (5) Diarrhea Qualifiers: Diarrhea type: unspecified type Qualified Code(s): R19.7 - Diarrhea, unspecified Current visit: Yes Status: Resolved (6) Benign essential hypertension Current visit: Yes Status: Chronic (7) Right flank pain Current visit: Yes Status: Acute She reports continued problem with right flank pain. This occurred after she fell at home prior to admission to [facility]. She says that if she uses a pain patch it is fairly immediately resolved. We will check a lumbar spine film for completeness to rule out compression fracture. DVT Prophylaxis: Xarelto Resuscitation Status: Do Not Resuscitate - Course Hospital Course: Jonathan Philippe MD: 05/15/17 10:25 She has new development of diarrhea over the weekend along with nausea and vomiting. Blood sugars are noted. She is improving with transfers Working on safety awareness and balance. 05/16/17 10:18 Her diarrhea has resolved. We will hold on the C. difficile analysis. Her blood sugars have been a bit low at times in relationship to therapy. She is improving with therapy. Her blood pressure is now elevated and this will be monitored carefully. 05/17/17 10:15 Her GI symptoms seem to have improved. Blood sugars have been improved. Blood pressure is still running a bit elevated. 05/19/17 12:45 Right flank pain noted. We will check a film. May use her own Salon Pas patch. Blood pressures are continues running a bit high. - Interventions to Obtain Goals PT Treatment Plan: Balance/Proprioception, Functional Activities, Gait Training , Patient/Family Education, Therapeutic Exercise OT Treatment Plan: ADL (Basic Care), Balance Training, Pt./Family Education, Ther. Exercise for ADL Goals Progress/Modifications: Time spent with patient and on floor reviewing data and documentin min Barriers to dismissal: Safety awareness, right flank pain Medical decision-making: I reassessed her right flank pain. She appears to have muscular discomfort. There is tenderness to palpation. Midline is not as tender. However in view of her fall we want to rule out compression fracture. I reviewed the films on the acute side and did not see lumbar spine films. We will assess that today. In addition she can use her own pain patch which does appear to be beneficial for her. With regard to her blood pressures and blood sugars, we are working with the hospitalists in this regard.
[2017-05-19] MEDS ORDERED: SALON PAS TOP PRN (13:02)
--- NOTE | 2017-05-19 13:36 | Progress Note ---
<Kristan Guzman V - Last Filed: 05/19/17 13:30> - Date 05/19/17 Subjective: Fartun is seen today in follow up this morning. She reports overall she is feeling good other than sone right paraspinal lumbar back pain. This has been ongoing and is generally treated with topical patch. Appetite has been good, No difficulty with voiding an bowels have been moving slower. Objective Vital signs: Temperature 98.8 F 05/19/17 08:18 Pulse Rate 77 05/19/17 08:18 Respiratory Rate 16 05/19/17 08:18 Blood Pressure 173/63 H 05/19/17 08:18 Pulse Oximetry 96 05/19/17 08:18 Height/Weight/BMI: Height 1.52 m Weight 95 kg Body Mass Index 39.9 - Constitutional Present: no acute distress, well nourished, well developed - Routine HEENT Exam Eye: Present: EOMI ENT: Present: mucous membranes moist, dentition normal - Routine Respiratory Exam Present: CTA bilaterally. Absent: wheezes - Routine Cardiovascular Exam Present: RRR, S1, S2. Absent: murmur - Routine Abdominal Exam Present: soft, normoactive bowel sounds, non distended. Absent: tenderness - Routine Extremities Exam Present: normal capillary refill - Routine Skin Exam Present: intact, dry, warm - Routine Neurological Exam Present: alert, oriented X3, CN II-XII intact - Routine Lymphatic Exam Lymphatic: Absent: adenopathy - Routine Psychiatric Exam Present: normal affect, cooperative Results - Labs CBC & Chem 7: 05/18/17 05:30 05/15/17 04:47 Assessment and Plan (1) Femur fracture, left Current visit: No Status: Acute (2) Diabetes mellitus Current visit: Yes Status: Chronic (3) Acute blood loss anemia Current visit: Yes Status: Acute (4) ASHD (arteriosclerotic heart disease) Current visit: Yes Status: Chronic (5) History of deep venous thrombosis or pulmonary embolus Current visit: Yes Status: Acute Assessment and Plan: Impression S/P Left femur fx repair Anemia Right back back DM HTN Arteriosclerotic heart disease Plan Continue to current work with PT and OT for ongoing strengthening. Intended work on bowel motivation. Patient may utilize when necessary medications, milk of magnesia as needed. Topical Salon Pas Patch for pain in the right paraspinal muscular region. Monitor Accu-Cheks Follow blood pressures, borderline high at times. Hemoglobin remained stable, 9.0 yesterday 05/18 Hospital Course Summary Disclaimer: The visit summary below is not to be considered part of the above Progress Note. Hospital Course: Impression Status post open reduction internal fixation of left distal femur fracture (Dr. 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 Philippe. Appreciate the consult. Hold Xarelto given continuing drop in hemoglobin despite transfusions. Change ASA 81mg to 325 BID until Xarelto is resumed. Transfuse 1 unit PRBCs now. Repeat CBC, BMP in am to follow hgb and renal function/electrolytes. Monitor blood sugars and adjust insulin as needed. Care to return to Dr. Nelson on discharge. 05/14/17 15:17 Patient is doing well. Concern with ABLA post op; Xarelto on hold. Hx DVT/PE post op in November. She 5-6 months into treatment for prior PE. May be able to decrease treatment to preventative dosing if bleeding remains an issue. Will decrease ASA back to 81mg and start LMWH @ 40mg/day. If labs are stable tomorrow, may be able to restart NOAC. AM BG continues to run lower- usually fasting is issue. Decrease long acting insulin to 35 units Q HS. BP is a bit elevated- she is on home dosing. Continue to observe- may need to add additional agents. Repeat labs in AM for stability. 05/19/17 Plan Continue to current work with PT and OT for ongoing strengthening. Intended work on bowel motivation. Patient may utilize when necessary medications, milk of magnesia as needed. Topical Salon Pas Patch for pain in the right paraspinal muscular region. Monitor Accu-Cheks Follow blood pressures, borderline high at times. Hemoglobin remained stable, 9.0 yesterday 05/18 <Kadie Quesadanathan P - Last Filed: 05/19/17 22:01> - Date 05/19/17 Objective Vital signs: Temperature 98.4 F 05/19/17 21:10 Pulse Rate 79 05/19/17 21:10 Respiratory Rate 16 05/19/17 21:10 Blood Pressure 134/65 05/19/17 21:10 Pulse Oximetry 94 05/19/17 21:10 Height/Weight/BMI: Height 5 ft Weight 95 kg Body Mass Index 39.9 Results - Labs CBC & Chem 7: 05/18/17 05:30 05/15/17 04:47 Assessment and Plan (1) Femur fracture, left Current visit: No Status: Acute (2) Diabetes mellitus Current visit: Yes Status: Chronic (3) Acute blood loss anemia Current visit: Yes Status: Acute (4) ASHD (arteriosclerotic heart disease) Current visit: Yes Status: Chronic (5) History of deep venous thrombosis or pulmonary embolus Current visit: Yes Status: Acute Assessment and Plan: Impression S/P Left femur fx repair Anemia Right back back DM HTN Arteriosclerotic heart disease Plan Continue to current work with PT and OT for ongoing strengthening. Intended work on bowel motivation. Patient may utilize when necessary medications, milk of magnesia as needed. Topical Salon Pas Patch for pain in the right paraspinal muscular region. Monitor Accu-Cheks Follow blood pressures, borderline high at times. Hemoglobin remained stable, 9.0 yesterday 05/18 Seen and examined patient on same day as the above note. Agree with history, physical, assessment and plan. Comprehensive physical findings correlate to the above note. Documented on Dragon speech to text. Efforts to correct speech recognition errors performed, but variation may exist Hospital Course Summary Disclaimer: The visit summary below is not to be considered part of the above Progress Note.
--- NOTE | 2017-05-19 15:30 | XRay Report ---
Indication: right flank pain/fall at home PROCEDURE: XR lumbar spine 2-3V: Encounter: Initial Comparison: January 24, 2017 Findings: Alignment of the lumbar spine is stable. No acute fracture or subluxation. The vertebral body heights and disk spaces are unchanged. Degenerative facet disease in the mid to lower lumbar region. Impression: Stable appearance of the lumbar spine without acute osseous abnormality. .
[2017-05-19] MEDS ORDERED: INSULIN ASPART 100unit/ml INJECTION SQ SCH (18:00)
[2017-05-19] MEDS: INSULIN GLARGINE 100unit/ml INJECTION SQ SCH (20:32)
[2017-05-19] MEDS: ATORVASTATIN 40 MG TABLET PO SCH (20:35)
[2017-05-19] MEDS: RANITIDINE 300 MG TABLET PO SCH (20:35)
[2017-05-19] MEDS: LOSARTAN 100 MG TABLET PO SCH (20:36)
[2017-05-19] MEDS: APAP/DIPHENHYDRAMINE 500 MG/25 MG TABLET PO SCH (22:07)
[2017-05-20] MEDS: Oxycodone/Acetaminophen 5/325 1 TAB PO PRN ×3 (06:01→23:25)
[2017-05-20] MEDS: METFORMIN 500 MG TABLET PO SCH ×2 (08:50→17:54)
[2017-05-20] MEDS: FUROSEMIDE 20 MG TABLET PO SCH (08:51)
[2017-05-20] MEDS: CITALOPRAM 20 MG TABLET PO SCH (08:51)
[2017-05-20] MEDS: ENOXAPARIN 40 MG/0.4 ML INJECTION SQ SCH (08:51)
[2017-05-20] MEDS: COENZYME Q-10 200mg TABLET PO SCH (08:51)
[2017-05-20] MEDS: LABETALOL 100 MG TABLET PO SCH ×2 (08:52→21:08)
[2017-05-20] MEDS: ASPIRIN *EC* 81 MG TABLET PO SCH (08:52)
[2017-05-20] MEDS: SENNA + DOCUSATE TABLET PO SCH ×2 (08:53→21:08)
[2017-05-20] MEDS: POLYETHYL GLYCOL 3350 17gm PACKET PO SCH (08:53)
[2017-05-20] MEDS: INSULIN ASPART 100unit/ml INJECTION SQ SCH ×3 (08:57→17:49)
[2017-05-20] MEDS ORDERED: FALL RISK - PHARMACY CONSULT XX ONE (09:06)
[2017-05-20] MEDS: RANITIDINE 300 MG TABLET PO SCH (21:08)
[2017-05-20] MEDS: ATORVASTATIN 40 MG TABLET PO SCH (21:08)
[2017-05-20] MEDS: LOSARTAN 100 MG TABLET PO SCH (21:08)
[2017-05-20] MEDS: APAP/DIPHENHYDRAMINE 500 MG/25 MG TABLET PO SCH (21:09)
[2017-05-20] MEDS: INSULIN GLARGINE 100unit/ml INJECTION SQ SCH (21:19)
[2017-05-21] MEDS: Oxycodone/Acetaminophen 5/325 1 TAB PO PRN ×3 (05:57→21:19)
--- NOTE | 2017-05-21 09:10 | Ultrasound Report ---
Indication: swelling, warmth, hx of dvt PROCEDURE: US venous doppler LE BI: Encounter: Initial Comparison: None Technique: Color Doppler duplex and grayscale sonographic imaging of both lower extremities was performed. Findings: There is no evidence for acute deep venous thrombosis in either thigh. Specifically, serial graded compression was performed from the inguinal ligament to the popliteal bifurcation, bilaterally, demonstrating appropriate compressibility of the deep venous system. In addition, color and pulsed Doppler demonstrate appropriate spontaneous flow, variation with respiration, and augmentation with calf compression. At the ankle, normal flow is identified in the posterior tibial veins; these vessels are also normal in caliber. Impression: No evidence of acute DVT in either lower limb. There is a preliminary report by virtual radi[facility]. .
[2017-05-21] MEDS: COENZYME Q-10 200mg TABLET PO SCH (09:22)
[2017-05-21] MEDS: METFORMIN 500 MG TABLET PO SCH ×2 (09:22→17:47)
[2017-05-21] MEDS: CITALOPRAM 20 MG TABLET PO SCH (09:22)
[2017-05-21] MEDS: ASPIRIN *EC* 81 MG TABLET PO SCH (09:22)
[2017-05-21] MEDS: LABETALOL 100 MG TABLET PO SCH ×2 (09:22→21:20)
[2017-05-21] MEDS: FUROSEMIDE 20 MG TABLET PO SCH (09:23)
[2017-05-21] MEDS: SENNA + DOCUSATE TABLET PO SCH ×2 (09:23→21:19)
[2017-05-21] MEDS: ENOXAPARIN 40 MG/0.4 ML INJECTION SQ SCH (09:27)
[2017-05-21] MEDS: INSULIN ASPART 100unit/ml INJECTION SQ SCH ×3 (09:28→17:42)
[2017-05-21] MEDS: POLYETHYL GLYCOL 3350 17gm PACKET PO SCH (12:19)
[2017-05-21] MEDS: INSULIN GLARGINE 100unit/ml INJECTION SQ SCH (21:17)
[2017-05-21] MEDS: LOSARTAN 100 MG TABLET PO SCH (21:20)
[2017-05-21] MEDS: RANITIDINE 300 MG TABLET PO SCH (21:20)
[2017-05-21] MEDS: ATORVASTATIN 40 MG TABLET PO SCH (21:20)
[2017-05-21] MEDS: APAP/DIPHENHYDRAMINE 500 MG/25 MG TABLET PO SCH (21:23)
[2017-05-22] MEDS: Oxycodone/Acetaminophen 5/325 1 TAB PO PRN ×5 (03:37→23:51)
[2017-05-22] MEDS: INSULIN ASPART 100unit/ml INJECTION SQ SCH ×3 (08:41→18:45)
[2017-05-22] MEDS: METFORMIN 500 MG TABLET PO SCH ×2 (08:42→18:13)
[2017-05-22] MEDS: COENZYME Q-10 200mg TABLET PO SCH (08:43)
[2017-05-22] MEDS: CITALOPRAM 20 MG TABLET PO SCH (08:43)
[2017-05-22] MEDS: SENNA + DOCUSATE TABLET PO SCH ×2 (08:44→21:29)
[2017-05-22] MEDS: LABETALOL 100 MG TABLET PO SCH ×2 (08:44→21:30)
[2017-05-22] MEDS: ASPIRIN *EC* 81 MG TABLET PO SCH (08:44)
[2017-05-22] MEDS: ENOXAPARIN 40 MG/0.4 ML INJECTION SQ SCH (08:45)
[2017-05-22] MEDS: FUROSEMIDE 20 MG TABLET PO SCH (08:46)
[2017-05-22] MEDS: POLYETHYL GLYCOL 3350 17gm PACKET PO SCH (09:00)
--- NOTE | 2017-05-22 10:49 | IRU Progress Note ---
- Subjective/Serverity of Illness Fartun was interviewed in her room on the inpatient rehabilitation unit. She states that her main source of pain is in the right flank. She finds great benefit with use of the salon pas patch but also has used some Percocet at night. Appetite is doing fairly well. Her leg is actually not bothering her with regard to pain. There was additional edema in the left leg and a venous Doppler study was done over the weekend which was negative for DVT. She has been off the Xarelto due to anemia and risk of further bleeding. She states that she is having bowel movements. Update on medical issues which we are actively monitoring and/or managin. Diabetes mellitus: Her blood sugars are running a bit higher at 190-200 range. 2. History of coronary artery disease with congestive heart failure: She denies chest pain. Her lungs are clear. 3. History of DVT and pulmonary embolus in November 2016: She denies dyspnea. A recent venous Doppler was negative. Xarelto remains on hold due to risk of bleeding. 4. Pain management: Pain in the leg is doing fine. Has predominant pain in the right flank area which she attributes to a childhood injury which she described to me today. Plain films of lumbar spine show chronic changes only. 5. She is at risk for surgical site infection in view of her obesity and diabetes mellitus: Left leg wounds are inspected today. They do not show evidence of infection. 6. Anemia: Repeat hemoglobin 8.8 g percent. Her hemoglobin appears to be stable. 7. Hypertension: Once again her blood pressures remain elevated. However I think she has a lot of anxiety as well as discomfort in the right flank which is worsening her blood pressure control. Again she remains on fairly maximal doses of labetalol and losartan. We could add on additional agents such as amlodipine although I will defer to hospitalist in this regard. Exam Vital Signs: Temperature 97.4 F 05/22/17 08:53 Pulse Rate 84 05/22/17 08:53 Respiratory Rate 22 05/21/17 23:25 Blood Pressure 176/76 H 05/21/17 23:25 Pulse Oximetry 94 05/22/17 08:53 Height/Weight/BMI: Height 1.52 m Weight 95 kg Body Mass Index 39.9 Comments: The patient is awake, alert and oriented and in no acute distress At present although complained of right flank pain last night. After taking 2 Percocet she was able to sleep adequately.Pupils are equal. The neck is supple. Chest: Clear to auscultation bilaterally. Cor: RR with no gallop, click nor murmur Abd: soft with normo-active bowel sounds. There are no masses, no tenderness and no guarding. Extremities: Left leg does demonstrate quite a bit of edema. Inspection of the leg wounds indicates no evidence of infection at present. Results IRU - Labs Labs: I reviewed her blood sugars and blood pressures. IRU A/P (1) Acute blood loss anemia Current visit: Yes Status: Acute Repeat hemoglobin down a bit at 8.8 g percent from 9 g percent. However overall it has been stable. No evidence of ongoing bleeding at present. The Xarelto remains on hold however. 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 I will defer to the hospitalist service with regard to management of this. (4) Femur fracture, left Qualifiers: Encounter type: initial encounter Femur location: distal epiphysis Fracture type: closed Current visit: No Status: Acute Her wounds appear to be healing adequately. There is edema on that side but venous Doppler was negative. Pain is adequately controlled in the left leg. (5) Diarrhea Qualifiers: Diarrhea type: unspecified type Qualified Code(s): R19.7 - Diarrhea, unspecified Current visit: Yes Status: Resolved (6) Benign essential hypertension Current visit: Yes Status: Chronic As noted her blood pressures are running a bit high about 170. She is on maximal doses of labetalol and losartan. We will monitor this at present but may need to add on amlodipine. (7) Right flank pain Current visit: Yes Status: Acute DVT Prophylaxis: Xarelto Resuscitation Status: Do Not Resuscitate - Course Hospital Course: Jonathan Philippe MD: 05/15/17 10:25 She has new development of diarrhea over the weekend along with nausea and vomiting. Blood sugars are noted. She is improving with transfers Working on safety awareness and balance. 05/16/17 10:18 Her diarrhea has resolved. We will hold on the C. difficile analysis. Her blood sugars have been a bit low at times in relationship to therapy. She is improving with therapy. Her blood pressure is now elevated and this will be monitored carefully. 05/17/17 10:15 Her GI symptoms seem to have improved. Blood sugars have been improved. Blood pressure is still running a bit elevated. 05/19/17 12:45 Right flank pain noted. We will check a film. May use her own Salon Pas patch. Blood pressures are continues running a bit high. 05/22/17 10:51 Blood pressures are running a bit high. Right flank pain is limiting her a bit. Was able to sleep with the use of Percocet and patch. Blood sugars are running a bit high. Left leg edema noted but venous Doppler negative over the weekend. - Interventions to Obtain Goals PT Treatment Plan: Balance/Proprioception, Functional Activities, Gait Training , Patient/Family Education, Therapeutic Exercise OT Treatment Plan: ADL (Basic Care), Balance Training, Pt./Family Education, Ther. Exercise for ADL Goals Progress/Modifications: Time spent with patient and on floor reviewing data and documentin min Barriers to dismissal: Endurance, pain in right flank, balance, safety Medical decision-making: I reviewed her overall situation. We will continue therapies. However she is running a bit high on the blood pressures and blood sugars. Consideration is given to adding on additional medication such as amlodipine. However I will defer to the hospitalist service in this regard. With regard to her blood sugars, I have reviewed them and they are running a bit elevated as well. We'll discuss with the hospitalist service as needed. However, she is tolerating therapy well. There are no cardiovascular symptoms at present. She does have history of heart failure and angina but no reports of chest pain. We will pursue the interdisciplinary team meeting this noon for further decisions regarding continuing with the patient.
--- NOTE | 2017-05-22 14:10 | IRU Team Meeting ---
IRU Team Meeting - Nursing Vital Signs: Vital Signs - 24 hr 05/21/17 16:00 05/21/17 23:25 05/22/17 08:53 Temperature 97.8 F 97.4 F 97.4 F Pulse Rate 72 76 84 Respiratory Rate 22 22 Blood Pressure 179/72 H 176/76 H Pulse Oximetry 94 94 94 Current Medications: Acetaminophen/Diphenhydramine HCl (Tylenol Pm) 2 tab PO HS [facility] Last Admin: 05/21/17 21:23 Dose: Not Given Aspirin (Ecotrin) 81 mg PO DAILY [facility] Last Admin: 05/22/17 08:44 Dose: 81 mg Atorvastatin Calcium (Lipitor) 40 mg PO HS [facility] Last Admin: 05/21/17 21:20 Dose: 40 mg Bisacodyl (Dulcolax) 10 mg RECTALLY DAILY PRN PRN Reason: Constipation Calcium Carbonate (Tums) 1,000 mg PO Q4H PRN PRN Reason: Dyspepsia Last Admin: 05/18/17 11:36 Dose: 1,000 mg Citalopram Hydrobromide (Celexa) 20 mg PO DAILY [facility] Last Admin: 05/22/17 08:43 Dose: 20 mg Coenzyme Q10 (Co Q-10) 100 mg PO DAILY [facility] Last Admin: 05/22/17 08:43 Dose: 100 mg Enoxaparin Sodium (Lovenox) 40 mg SQ DAILY [facility] Last Admin: 05/22/17 08:45 Dose: 40 mg Furosemide (Lasix) 40 mg PO DAILY [facility] Last Admin: 05/22/17 08:46 Dose: 40 mg Insulin Aspart (Novolog) 5 unit SQ NOON [facility] Last Admin: 05/22/17 12:30 Dose: 5 unit Insulin Aspart (Novolog) 10 unit SQ BIDBS [facility] Last Admin: 05/22/17 08:41 Dose: 10 unit Insulin Glargine (Lantus) 35 unit SQ HS [facility] Last Admin: 05/21/17 21:17 Dose: 35 unit Labetalol HCl (Normodyne) 300 mg PO BID [facility] Last Admin: 05/22/17 08:44 Dose: 300 mg Losartan Potassium (Cozaar) 100 mg PO HS [facility] Last Admin: 05/21/17 21:20 Dose: 100 mg Magnesium Hydroxide (Mom) 30 ml PO DAILY PRN PRN Reason: Constipation Metformin HCl (Glucophage) 1,000 mg PO BIDWM [facility] Last Admin: 05/22/17 08:42 Dose: 1,000 mg Salon Pas Patch - Pt (Own) 1 TOP PRN PRN PRN Reason: use for pain as at home Last Admin: 05/22/17 03:34 Dose: 1 Oxycodone/Acetaminophen (Percocet 5/325) 1 - 2 tab PO Q4HR PRN PRN Reason: Pain Last Admin: 05/22/17 08:44 Dose: 2 tab Polyethylene Glycol (Miralax) 17 gm PO DAILY [facility] Last Admin: 05/22/17 09:00 Dose: 17 gm Potassium Chloride (K-Dur) 10 meq PO WB [facility] Last Admin: 05/22/17 08:43 Dose: 10 meq Ranitidine HCl (Zantac) 300 mg PO HS [facility] Last Admin: 05/21/17 21:20 Dose: 300 mg Rivaroxaban (Xarelto) 20 mg PO WS [facility] Last Admin: 05/11/17 18:31 Dose: 20 mg Senna/Docusate Sodium (Senna Plus Tablet) 1 tab PO BID [facility] Last Admin: 05/22/17 08:44 Dose: 1 tab Sodium Chloride (Iv Flush) 10 ml IV PRN PRN PRN Reason: Flushing Last Admin: 05/15/17 21:29 Dose: 10 ml Sodium Chloride (Normal Saline) 500 ml IV PRN PRN Last Admin: 05/13/17 00:00 Dose: 500 ml Tramadol HCl (Ultram) 50 mg PO Q4-6HR PRN PRN Reason: Pain Last Admin: 05/12/17 11:42 Dose: 50 mg Current Medical Issues: Diabetes mellitus, acute blood loss anemia, cognition concerns Comments: I certify that I personally led the interdisciplinary team meeting and agree with comments, barriers and goals indicated. Team meeting was held in the patient's room with the patient and the following family members present: daughter Shantal is very cooperative with nursing. Her appetite is good. She is having bowel movements. Her blood sugars are monitored and are reasonably well controlled. Her hemoglobin is remaining stable although a bit on the low side. Platelets are 530,000. Patient has had elevated blood pressure for the last several days felt to be due to her right flank pain. - Physical Therapy Comments: Patient is working with physical therapy. She requires moderate assistance for bed/chair/wheelchair transfers. She is unsafe for ambulation because of her nonweightbearing status on the left leg. She is contact-guard assistance for car transfer ability. She requires consistent instructions for sequencing and safety to complete transfers due to limited retention. She requires cues for attention to task and is very talkative. She is anxious and critical of herself if she performs a task incorrectly. - Occupational Therapy Comments: The patient is working with occupational therapy. She is independent with eating and upper body dressing and modified independent for grooming. She is standby assist for lower body dressing. She is standby assist for bathing ability and minimal assistance for tub transfers. She is progressing and becoming more independent with ADLs and more proficient. She still expresses fear of falling and knee giving out. She still requires multiple cues for positioning in the wheelchair correctly and for locking the brakes. - Goals Goals: 1. Lower body dressing at modified independent level 2. Increased coordination with left hand 3. Bed/chair/wheelchair transfers bilaterally with standby assist while maintaining Haning left lower extremity toe touch weightbearing status (not met at present) 4. Less than 25% cueing required during transfers (not yet met) - Barriers to Discharge Barriers to Attaining Goals: Weakness, Balance, Pain Control, Other (safety, attention to task, weightbearing status) - Care Plan Anticipated DC Destination: Home, Self Care, Home Health Service I have led this team conference and agree with the plan. Anticipated Length of Stay (days): 2
[2017-05-22] MEDS: ATORVASTATIN 40 MG TABLET PO SCH (21:29)
[2017-05-22] MEDS: LOSARTAN 100 MG TABLET PO SCH (21:29)
[2017-05-22] MEDS: RANITIDINE 300 MG TABLET PO SCH (21:29)
[2017-05-22] MEDS: APAP/DIPHENHYDRAMINE 500 MG/25 MG TABLET PO SCH (21:32)
[2017-05-22] MEDS: INSULIN GLARGINE 100unit/ml INJECTION SQ SCH (21:40)
[2017-05-23] MEDS: Oxycodone/Acetaminophen 5/325 1 TAB PO PRN ×3 (06:17→23:47)
[2017-05-23] MEDS: METFORMIN 500 MG TABLET PO SCH ×2 (08:11→17:40)
[2017-05-23] MEDS: ASPIRIN *EC* 81 MG TABLET PO SCH (08:12)
[2017-05-23] MEDS: CITALOPRAM 20 MG TABLET PO SCH (08:12)
[2017-05-23] MEDS: COENZYME Q-10 200mg TABLET PO SCH (08:13)
[2017-05-23] MEDS: ENOXAPARIN 40 MG/0.4 ML INJECTION SQ SCH (08:14)
[2017-05-23] MEDS: FUROSEMIDE 20 MG TABLET PO SCH (08:15)
[2017-05-23] MEDS: LABETALOL 100 MG TABLET PO SCH ×2 (08:15→20:33)
[2017-05-23] MEDS: POLYETHYL GLYCOL 3350 17gm PACKET PO SCH (08:15)
[2017-05-23] MEDS: SENNA + DOCUSATE TABLET PO SCH ×2 (08:16→20:33)
[2017-05-23] MEDS: INSULIN ASPART 100unit/ml INJECTION SQ SCH ×3 (08:27→17:39)
--- NOTE | 2017-05-23 10:33 | IRU Progress Note ---
- Subjective/Serverity of Illness We discussed with Shantal and her daughter yesterday that the patient has plateaued with therapy. Discussion was undertaken with regard to placement. Options of [facility] versus daughter living with her were discussed. After we left, family discussed this and decision was made for the daughter to live with the patient. Family training will be undertaken today. Anticipate dismissal tomorrow. Overall she continues to do well otherwise. She does require multiple verbal cues. Left leg is not really hurting. Right flank does hurt but is being relieved by a pain patch. In addition she is on Percocet. I reviewed her blood sugars which are doing quite well. Her blood pressure is also improved into the 130 range. She denies any lightheadedness. Denies any GI complaints at present and her bowels are moving. She denies any chest pain or shortness of breath. Exam Vital Signs: Temperature 97.9 F 05/23/17 07:51 Pulse Rate 116 H 05/23/17 07:51 Respiratory Rate 24 05/23/17 07:51 Blood Pressure 136/76 05/23/17 07:51 Pulse Oximetry 94 05/23/17 07:51 Height/Weight/BMI: Height 1.52 m Weight 95 kg Body Mass Index 39.9 Comments: The patient is awake, alert and oriented and in no acute distress. She is loquacious. Pupils are equal. The neck is supple. Chest: Clear to auscultation bilaterally. Cor: RR with no gallop, click nor murmur Abd: soft with normo-active bowel sounds. There are no masses, no tenderness and no guarding. Extremities: Left leg edema unchanged. Wounds demonstrated a little irritation but no sarahy infection. Results IRU - Labs Labs: Reviewed blood pressures and blood sugars. IRU A/P (1) Acute blood loss anemia Current visit: Yes Status: Acute Most recent hemoglobin 8.8. We will reassess his prior to dismissal. She denies any lightheadedness. There is no evidence of ongoing blood loss. We will discuss with the hospitalist service the issue of reinstituting her anticoagulant prior to dismissal in view of her DVT in November. (2) ASHD (arteriosclerotic heart disease) Current visit: Yes Status: Chronic She denies any chest pain at present. Her breathing is adequate. (3) Diabetes mellitus Qualifiers: Diabetes mellitus type: type 2 Diabetes mellitus complication status: with neurologic complications Diabetes mellitus complication detail: with polyneuropathy Diabetes mellitus assisted insulin use: with terminal gauger use Qualified Code(s): E11.42 - Type 2 diabetes mellitus with diabetic polyneuropathy; Z79.4 - FDC (current) use of insulin; Z79.4 - FDC ( current) use of insulin; Z79.4 - FDC (current) use of insulin; Z79.4 - FDC (current) use of insulin Current visit: Yes Status: Chronic Her blood sugars are doing very well at the present time. (4) Femur fracture, left Qualifiers: Encounter type: initial encounter Femur location: distal epiphysis Fracture type: closed Current visit: No Status: Acute Her wounds are looking a little irritated but likely this is due to the stitches. No evidence of infection. Pain control is adequate in the leg. Her main pain is in the right flank. (5) Diarrhea Qualifiers: Diarrhea type: unspecified type Qualified Code(s): R19.7 - Diarrhea, unspecified Current visit: Yes Status: Resolved (6) Benign essential hypertension Current visit: Yes Status: Chronic Her blood pressures are doing much better today. (7) Right flank pain Current visit: Yes Status: Acute DVT Prophylaxis: Xarelto Resuscitation Status: Do Not Resuscitate - Course Hospital Course: Jonathan Philippe MD: 05/15/17 10:25 She has new development of diarrhea over the weekend along with nausea and vomiting. Blood sugars are noted. She is improving with transfers Working on safety awareness and balance. 05/16/17 10:18 Her diarrhea has resolved. We will hold on the C. difficile analysis. Her blood sugars have been a bit low at times in relationship to therapy. She is improving with therapy. Her blood pressure is now elevated and this will be monitored carefully. 05/17/17 10:15 Her GI symptoms seem to have improved. Blood sugars have been improved. Blood pressure is still running a bit elevated. 05/19/17 12:45 Right flank pain noted. We will check a film. May use her own Salon Pas patch. Blood pressures are continues running a bit high. 05/22/17 10:51 Blood pressures are running a bit high. Right flank pain is limiting her a bit. Was able to sleep with the use of Percocet and patch. Blood sugars are running a bit high. Left leg edema noted but venous Doppler negative over the weekend. 05/23/17 10:36 Continues to have some edema in the left lower extremity. Right flank pain is an issue but improving. Her blood sugars are better and her blood pressures are better. - Interventions to Obtain Goals PT Treatment Plan: Balance/Proprioception, Functional Activities, Gait Training , Patient/Family Education, Therapeutic Exercise OT Treatment Plan: ADL (Basic Care), Balance Training, Pt./Family Education, Ther. Exercise for ADL Goals Progress/Modifications: Time spent with patient and on floor reviewing data and documentin min Barriers to dismissal: cognition, right flank pain Medical decision-making: Patient and her daughter have determined that they will go to the patient's home and the daughter will live with her. She clearly needs 24-hour supervision at present. She requires multiple verbal cues. She does have the right flank pain which has been there for some time and predated all of this experience. She does find benefit with the pain patch topically. Secondly, she has a history of DVT in November 2016 and was on Xarelto. That was held due to acute blood loss anemia. I will repeat the CBC tomorrow. I have discussed the case with the hospitalist service with regard to whether they want to continue the Xarelto or not. In addition she is on Lovenox so perhaps she could go home on Lovenox. They will discuss with the orthopedic service as well in this regard.
--- NOTE | 2017-05-23 11:14 | Progress Note ---
- Date 05/23/17 Subjective: Patient is seen sitting in her wheelchair in her room. Overall she is steadily improving. She plans to go home tomorrow. She continues to have some pain in the back, which is controlled. No chest pain or shortness of breath. Objective Vital signs: Temperature 97.9 F 05/23/17 07:51 Pulse Rate 116 H 05/23/17 07:51 Respiratory Rate 24 05/23/17 07:51 Blood Pressure 136/76 05/23/17 07:51 Pulse Oximetry 94 05/23/17 07:51 Height/Weight/BMI: Height 1.52 m Weight 95 kg Body Mass Index 39.9 - Constitutional Present: no acute distress, well nourished, well developed - Routine Respiratory Exam Present: wheezes. Absent: dyspnea, respiratory distress - Routine Abdominal Exam Present: tenderness - Routine Extremities Exam Present: edema (1+ b/l/ Op site is healing. No sign of infection.), normal capillary refill - Routine Skin Exam Present: dry, warm - Routine Neurological Exam Present: alert, oriented X3, normal speech - Routine Lymphatic Exam Lymphatic: Absent: adenopathy - Routine Psychiatric Exam Present: normal affect, cooperative Results - Labs CBC & Chem 7: 05/22/17 04:19 05/22/17 04:19 Assessment and Plan (1) Femur fracture, left Current visit: No Status: Acute (2) Diabetes mellitus Current visit: Yes Status: Chronic (3) Acute blood loss anemia Current visit: Yes Status: Acute (4) ASHD (arteriosclerotic heart disease) Current visit: Yes Status: Chronic (5) History of deep venous thrombosis or pulmonary embolus Current visit: Yes Status: Acute Assessment and Plan: Impression S/P Left femur fx repair-Dr. Wan 05/09/17 ABLA post surgery requiring transfusion Right back pain H/o DVT/PE following surgery 10/31 DM HTN Arteriosclerotic heart disease Plan Patient overall is progressing well. Discharge is planned for tomorrow. She will go home and her daughter will stay with her. Her DVT/PE in October is considered "provoked" as it occurred post-surgery. She was on Xarelto until her recent fracture. It was held pre-op and then resumed post-op. After she had acute blood loss and required transfusion, Xarelto was again held and she has been on daily Lovenox. Pt does not wish to resume Xarelto. Dr. Wan recommends Lovenox qd following surgery x 30 days. Recommend she f-u with her PCP for recommendations on anticoagulation once she finishes the 30 d of Lovenox. Hospital Course Summary Disclaimer: The visit summary below is not to be considered part of the above Progress Note. Hospital Course: Impression Status post open reduction internal fixation of left distal femur fracture (Dr. 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 Philippe. Appreciate the consult. Hold Xarelto given continuing drop in hemoglobin despite transfusions. Change ASA 81mg to 325 BID until Xarelto is resumed. Transfuse 1 unit PRBCs now. Repeat CBC, BMP in am to follow hgb and renal function/electrolytes. Monitor blood sugars and adjust insulin as needed. Care to return to Dr. Nelson on discharge. 05/14/17 15:17 Patient is doing well. Concern with ABLA post op; Xarelto on hold. Hx DVT/PE post op in November. She 5-6 months into treatment for prior PE. May be able to decrease treatment to preventative dosing if bleeding remains an issue. Will decrease ASA back to 81mg and start LMWH @ 40mg/day. If labs are stable tomorrow, may be able to restart NOAC. AM BG continues to run lower- usually fasting is issue. Decrease long acting insulin to 35 units Q HS. BP is a bit elevated- she is on home dosing. Continue to observe- may need to add additional agents. Repeat labs in AM for stability. 05/19/17 Plan Continue to current work with PT and OT for ongoing strengthening. Intended work on bowel motivation. Patient may utilize when necessary medications, milk of magnesia as needed. Topical Salon Pas Patch for pain in the right paraspinal muscular region. Monitor Accu-Cheks Follow blood pressures, borderline high at times. Hemoglobin remained stable, 9.0 yesterday 05/18
--- NOTE | 2017-05-23 15:13 | Progress Note ---
Progress Note: I spoke with the occupational therapist this morning as well as with the patient 's daughter. The patient is unable to recall appropriate transfer tasks and clearly has memory issues. This afternoon I went back in for a family conference with the patient and her daughter. I met with them for approximately 10-15 minutes. Questions were addressed. Yesterday the plans were for her to go to her own apartment with the daughter staying with her. However in view of these multiple safety concerns, I recommended that she consider snf. The patient states that she is willing to do that. Will work with care management in this regard.
[2017-05-23] MEDS: RANITIDINE 300 MG TABLET PO SCH (20:32)
[2017-05-23] MEDS: LOSARTAN 100 MG TABLET PO SCH (20:32)
[2017-05-23] MEDS: APAP/DIPHENHYDRAMINE 500 MG/25 MG TABLET PO SCH (20:32)
[2017-05-23] MEDS: INSULIN GLARGINE 100unit/ml INJECTION SQ SCH (20:33)
[2017-05-23] MEDS: ATORVASTATIN 40 MG TABLET PO SCH (20:33)
[2017-05-24 08:34] VITALS: BP 155/78; PULSE 71; RESP 20; TEMP 97.7; O2SAT 96
[2017-05-24] MEDS: FUROSEMIDE 20 MG TABLET PO SCH (08:44)
[2017-05-24] MEDS: SENNA + DOCUSATE TABLET PO SCH (08:44)
[2017-05-24] MEDS: CITALOPRAM 20 MG TABLET PO SCH (08:44)
[2017-05-24] MEDS: LABETALOL 100 MG TABLET PO SCH (08:44)
[2017-05-24] MEDS: METFORMIN 500 MG TABLET PO SCH (08:45)
[2017-05-24] MEDS: ENOXAPARIN 40 MG/0.4 ML INJECTION SQ SCH (08:45)
[2017-05-24] MEDS: COENZYME Q-10 200mg TABLET PO SCH (08:45)
[2017-05-24] MEDS: INSULIN ASPART 100unit/ml INJECTION SQ SCH (08:45)
[2017-05-24] MEDS: ASPIRIN *EC* 81 MG TABLET PO SCH (08:45)
[2017-05-24] MEDS: POLYETHYL GLYCOL 3350 17gm PACKET PO SCH (08:46)
--- NOTE | 2017-05-24 10:12 | IRU Progress Note ---
- Subjective/Serverity of Illness Shantal was evaluated in her room today. She is conversant. She is agreeable to go to [facility]. She denies any current complaints. However upon exam she does have some warmth and redness to her left ankle. It is not particularly edematous anymore than it has been. Recent venous Doppler was negative and she has been on Lovenox and will continue that. Her blood sugars are reasonably well controlled and her blood pressure is improved. She is afebrile. Exam Vital Signs: Temperature 97.7 F 05/24/17 08:00 Pulse Rate 71 05/24/17 08:00 Respiratory Rate 20 05/24/17 08:00 Blood Pressure 155/78 H 05/24/17 08:00 Pulse Oximetry 96 05/24/17 08:00 Height/Weight/BMI: Height 1.52 m Weight 93.3 kg Body Mass Index 39.9 Comments: The patient is awake, alert and loquacious. No acute distress. Pupils are equal. The neck is supple. Chest: Clear to auscultation bilaterally. Cor: RR with no gallop, click nor murmur Abd: soft with normo-active bowel sounds. There are no masses, no tenderness and no guarding. Extremities: Sutures have been removed and wounds look good. Left leg has 2 linear areas of redness and slight warmth. Uncertain etiology. Could be due to dependent position recently. Minimal edema or at least unchanged edema. Results IRU - Labs Labs: Reviewed vital signs and sugars. IRU A/P (1) Acute blood loss anemia Current visit: Yes Status: Acute Recent hemoglobin remains roughly the same at 8.7. No evidence of ongoing blood loss. (2) ASHD (arteriosclerotic heart disease) Current visit: Yes Status: Chronic No chest pain and no significant dyspnea is reported. (3) Diabetes mellitus Qualifiers: Diabetes mellitus type: type 2 Diabetes mellitus complication status: with neurologic complications Diabetes mellitus complication detail: with polyneuropathy Diabetes mellitus terminal gauger insulin use: with detention use Qualified Code(s): E11.42 - Type 2 diabetes mellitus with diabetic polyneuropathy; Z79.4 - manager terminal (current) use of insulin; Z79.4 - correction ( current) use of insulin; Z79.4 - manager terminal (current) use of insulin; Z79.4 - manager terminal (current) use of insulin Current visit: Yes Status: Chronic Her blood sugars are stable at the present time. (4) Femur fracture, left Qualifiers: Encounter type: initial encounter Femur location: distal epiphysis Fracture type: closed Current visit: No Status: Acute (5) Diarrhea Qualifiers: Diarrhea type: unspecified type Qualified Code(s): R19.7 - Diarrhea, unspecified Current visit: Yes Status: Resolved (6) Benign essential hypertension Current visit: Yes Status: Chronic (7) Right flank pain Current visit: Yes Status: Acute (8) Erythema Current visit: Yes Status: Acute Left ankle appears to be a bit red. This is mainly into linear areas on the medial anterior aspect of the left shelley. It is not in the ankle per se. This is somewhat warm. Uncertain if this represents cellulitis or simply dependency. We will keep a close eye on it. She is afebrile. DVT Prophylaxis: Xarelto Resuscitation Status: Do Not Resuscitate - Course Hospital Course: Jonathan Philippe MD: 05/15/17 10:25 She has new development of diarrhea over the weekend along with nausea and vomiting. Blood sugars are noted. She is improving with transfers Working on safety awareness and balance. 05/16/17 10:18 Her diarrhea has resolved. We will hold on the C. difficile analysis. Her blood sugars have been a bit low at times in relationship to therapy. She is improving with therapy. Her blood pressure is now elevated and this will be monitored carefully. 05/17/17 10:15 Her GI symptoms seem to have improved. Blood sugars have been improved. Blood pressure is still running a bit elevated. 05/19/17 12:45 Right flank pain noted. We will check a film. May use her own Salon Pas patch. Blood pressures are continues running a bit high. 05/22/17 10:51 Blood pressures are running a bit high. Right flank pain is limiting her a bit. Was able to sleep with the use of Percocet and patch. Blood sugars are running a bit high. Left leg edema noted but venous Doppler negative over the weekend. 05/23/17 10:36 Continues to have some edema in the left lower extremity. Right flank pain is an issue but improving. Her blood sugars are better and her blood pressures are better. 05/24/17 10:22 Seems to have some redness and warmth involving the left lower leg. Uncertain if this is cellulitis or not. We will observe. She is afebrile. She has no pain there. Blood sugars are stable. Arrangements are in progress for placement in [facility]. - Interventions to Obtain Goals PT Treatment Plan: Balance/Proprioception, Functional Activities, Gait Training , Patient/Family Education, Therapeutic Exercise OT Treatment Plan: ADL (Basic Care), Balance Training, Pt./Family Education, Ther. Exercise for ADL Goals Progress/Modifications: Time spent with patient and on floor reviewing data and documentin min Barriers to dismissal: cognition, safety awareness, endurance Medical decision-making: While she is stable for dismissal, we will keep a close eye on the left ankle redness. If this worsens we will likely need to start some antibiotics. Otherwise she seems to be stable. Her blood sugars are doing fairly well. Her blood pressure is stable.
[2017-05-24] MEDS: Oxycodone/Acetaminophen 5/325 1 TAB PO PRN (10:23)
--- NOTE | 2017-05-24 11:50 | Progress Note ---
Progress Note: Pt consistently running lower blood sugars before lunch. Will decrease her breakfast insulin from 10 units to 5 units. Hold her insulin today for lunch. Continue 10 units at at bedtime and continue her regular Lantus dosing.
--- NOTE | 2017-05-24 13:40 | Extended Care Facility Orders ---
Admission Orders Admit to:: Group Home Allergies/Adverse Reactions: Allergies codeine Allergy (Unknown, Verified 05/11/17 20:36) [facility] Admitting Diagnosis: Left femur fracture Admitting Physician: Jonathan Philippe MD Attending Physician: Jonathan Philippe MD Code Status: Do Not Resuscitate Anticiapted Length of Stay: 30 days or less Rehab Potential: fair Rehab Prognosis: fair Diet: 05/11/17 Dinner Consistent Carbohydrate Diet [DIET] Calorie Level: 2000 Wound/Incision Care: Keep wounds clean and dry. May shower but pat totally dry after showering. May use Facility Protocol or Standing Orders: Yes May have flu vaccine: Yes Evaluations/Treatment: PT, OT Group Home Certification: I certify that SNF services are required to be given on an Inpatient basis because of the patients need for intermediate care on a continuing basis for the condition(s) for which he/she received inpatient hospital services prior to his/her transfer to the SNF. SNF inpatient care is necessary for the following reasons: Close monitoring of blood sugars, safety awareness, balance and strengthening. Indication for Group Home: Diabetic Assessment - Additional Information In Event of Arrest: Do Not Start CPR Resident is Aware of Diagnosis: Yes Referrals: Miriam Nelson MD [Family Provider] - (Dr. Rita Nelson on 06/05/17 at 9:30 am for Hosp. follow-up. [address] [place] [address]) John Mckeon MD [Physician] - (Dr. Alondra Mckeon on 07/12/17 at 10:30 am for follow-up for Metabolic Bone Disease.. Check in at 10:00 am. [phone]. [address] [place] [address]) Bashir Thompson PA [Physician Family Educator] - (JUAN Vidal on 06/02/17 at 10:30 am for Post-Op follow-up. [phone]. [address] [place] [address])
--- NOTE | 2017-05-24 13:41 | Progress Note ---
Progress Note: Reassessment of left shelley/lower leg area indicates improvement in the redness. Doubt cellulitis at present.
--- NOTE | 2017-05-24 13:58 | XRay Report ---
Indication: recheck prior to discharge PROCEDURE: AP and Lateral views of the Left Femur Encounter: Initial Comparison: Knee radiographs and left femur CT dated May 07, 2017 lung with fluoroscopy dated May 09, 2017 Findings: There is no acute fracture, dislocation or malalignment identified. Stable alignment of the internally fixed left distal femoral fracture. Intramedullary heri appears intact with interlocking screws and a cerclage wire. Impression: Stable alignment of the internally fixed distal femoral fracture. .
--- NOTE | 2017-05-24 14:50 | Discharge Summary ---
Discharge Information Date of admission: 05/11/17 14:55 Anticipated date of discharge: 05/24/17 Attending Physician: Jonathan Philippe MD Primary care physician: Miriam Nelson MD Consults: 05/11/17 16:29 Physician Consult [CONS] Routine Consulting Provider: Reggie Schwartz Reason For Exam: medical management Ordering Provider has Notified Lithographic Photographer Apprentice: No 05/22/17 13:56 Physician Consult [CONS] Routine Consulting Provider: Mikey Rocha Reason For Exam: snu Ordering Provider has Notified Lithographic Photographer Apprentice: Yes 05/24/17 09:44 Doctor [Physician Consult] [CONS] Routine Consulting Provider: Soham Camara Reason For Exam: review for skilled Ordering Provider has Notified Lithographic Photographer Apprentice: Yes 05/24/17 09:49 Doctor [Physician Consult] [CONS] Routine Consulting Provider: [facility] Reason For Exam: reviewed for skilled. Ordering Provider has Notified Lithographic Photographer Apprentice: Yes - Discharge Diagnosis (1) Acute blood loss anemia Status: Acute (2) ASHD (arteriosclerotic heart disease) Status: Chronic (3) Diabetes mellitus Status: Chronic (4) Femur fracture, left Status: Acute (5) Diarrhea Status: Resolved (6) Benign essential hypertension Status: Chronic (7) Right flank pain Status: Acute (8) Erythema Status: Acute 1. Left femur fracture, distal, repaired 2. Diabetes mellitus type 2 on long-term insulin therapy 3. Benign essential hypertension 4. Right flank pain, musculoskeletal 5. Acute blood loss anemia - Laboratory Labs: 05/24/17 04:22 05/24/17 04:22 History of Present Illness HPI: 05/24/17 14:47 Ms. Ayers is a very pleasant 76-year-old female whose primary care physician is Dr. Miriam Nelson. She had fallen on her way to religion resulting in a fracture of her left distal femur. She was admitted to the hospital and the fracture was repaired by Dr. Wan on 05/09/2017 with open reduction internal fixation. Postoperatively she did have some confusion from time to time as well as some hypoxemia although that did improve. In addition she did have acute blood loss anemia. She had fallen back in October 2016 resulting in a left humerus fracture. She continues to have reduced strength in the left upper extremity. She had been on Xarelto since about November 2016 for DVT/pulmonary embolus. For that reason surgery was delayed for a couple of days until the anticoagulant affects had subsided. At home, she does monitor her blood sugars she states once daily and fasting sugars range between 83 and 197. She is on Lantus 55 units daily plus NovoLog as needed if she eats more. She states that her A1c was 7.8% on 03/17/2017. She specifically requested no resuscitation in the event of an arrest. She was therefore made a DO NOT RESUSCITATE. 05/24/17 15:09 Hospital Course This is a general summary of the patient's hospital course. For more details refer to the complete medical record. Ms. Ayers was admitted to the inpatient rehabilitation unit for an intensive individualized program of physical therapy, occupational therapy, 24 hour rehabilitation nursing to monitor her oxygen saturations, blood pressures and blood sugars as well as monitoring the wound for any evidence of infection. The patient did display cognitive difficulty. Had difficulty caring across someone due to the next her instructions. She had poor safety awareness. However, despite this she did improve with both occupational therapy and physical therapy. From an occupational therapy standpoint, eating was independent functioning upon admission and upon dismissal. Grooming was initially standby assist and ultimately independent. Bathing ability was initially moderate assistance and ultimately standby assistance. Upper body dressing was standby assistance initially and independent functioning subsequently. Lower body dressing was maximum assistance initially and standby assistance subsequently. Toileting assistance was contact-guard initially and supervision level ultimately. Toilet transfer assist was moderate assistance initially and standby assistance at the time of dismissal. Bed/chair/wheelchair transfers were total assistance initially and contact-guard assistance subsequently. From a physical therapy standpoint, she was standby assistance for bed/chair/ wheelchair transfers. Toileting assistance with standby assist. She was not safe for ambulation as she was nonweightbearing on the left leg. She was able to self propel in a wheelchair with standby assistance 75 feet. She was not safe for stairs. Cardiac transfers were initially moderate assistance and ultimately standby assistance. Patient did have some elevated blood pressures. We felt as though this was likely due to her right flank pain. Radiograph of the lumbar spine revealed degenerative changes only and no evidence of fracture. Right flank pain. 2. 8 the fall and is likely musculoskeletal in origin as it was relieved for the most part with topical Salon Pas patch. However she did require oxycodone for relief of this pain as well. Left leg really did not require pain relief with regard to pain medications. She tolerated the procedure well. The wounds appear to be healing fine and sutures were removed while on the IRU. Her hemoglobin was monitored due to the acute blood loss anemia. Dismissal hemoglobin was 8.7 g percent and this was stable. She was asymptomatic in this regard. She will follow-up with Dr. Nelson as well as Dr. Wan/Bashir Thompson as well as Dr. Mckeon for osteoporosis. At the time of dismissal she continues to have significant lack of safety awareness. We feel as though her cognition is such that it is not safe for her to return home at this time. She is therefore transferred to custodial at [facility] for further physical therapy and occupational therapy until she is allowed to bear more weight on the left lower extremity. She will require subcutaneous Lovenox through June 06 which completes 4 weeks of therapy. Decision was made to discontinue Xarelto because of the duration of time since diagnosis of her DVT in November. Her primary care physician can of course modify this and decide whether to reinstitute the Xarelto or not. Hospital course: Impression Status post open reduction internal fixation of left distal femur fracture (Dr. 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 Philippe. Appreciate the consult. Hold Xarelto given continuing drop in hemoglobin despite transfusions. Change ASA 81mg to 325 BID until Xarelto is resumed. Transfuse 1 unit PRBCs now. Repeat CBC, BMP in am to follow hgb and renal function/electrolytes. Monitor blood sugars and adjust insulin as needed. Care to return to Dr. Nelson on discharge. 05/14/17 15:17 Patient is doing well. Concern with ABLA post op; Xarelto on hold. Hx DVT/PE post op in November. She 5-6 months into treatment for prior PE. May be able to decrease treatment to preventative dosing if bleeding remains an issue. Will decrease ASA back to 81mg and start LMWH @ 40mg/day. If labs are stable tomorrow, may be able to restart NOAC. AM BG continues to run lower- usually fasting is issue. Decrease long acting insulin to 35 units Q HS. BP is a bit elevated- she is on home dosing. Continue to observe- may need to add additional agents. Repeat labs in AM for stability. 05/19/17 Plan Continue to current work with PT and OT for ongoing strengthening. Intended work on bowel motivation. Patient may utilize when necessary medications, milk of magnesia as needed. Topical Salon Pas Patch for pain in the right paraspinal muscular region. Monitor Accu-Cheks Follow blood pressures, borderline high at times. Hemoglobin remained stable, 9.0 yesterday 05/18 Time spent with patient: 25 - 35 minutes Discharge Plan - Med Rec/Dispo Referrals/Follow Up: Miriam Nelson MD [Family Provider] - (Dr. Rita Nelson on 06/05/17 at 9:30 am for Hosp. follow-up. [address] [place] [address]) John Mckeon MD [Physician] - (Dr. Alondra Mckeon on 07/12/17 at 10:30 am for follow-up for Metabolic Bone Disease.. Check in at 10:00 am. [phone]. [address] [place] [address]) Bashir Thompson PA [Physician Customer Greeter] - (JUAN Vidal on 06/02/17 at 10:30 am for Post-Op follow-up. [phone]. [address] [place] [address]) Truven Instructions: Leg Fracture (DC), [facility] [place] Soco General Instructions Prescriptions: New Enoxaparin Sodium [Lovenox] 40 mg SQ DAILY syringe Insulin Glargine,Hum.rec.anlog [Lantus] 35 unit SQ HS vial Insulin Aspart [NovoLOG] 5 unit SQ BIDBL vial Labetalol [Normodyne] 300 mg PO BID tablet raNITIdine HCl [Ranitidine HCl] 300 mg PO HS tablet Aspirin *EC* [Ecotrin] 81 mg PO DAILY tablet CALCIUM CARBONATE Chewable [Tums] 1,000 mg PO Q4H PRN tab.chew PRN Reason: Dyspepsia Insulin Aspart [NovoLOG] 10 unit SQ ACS15 vial Continue Atorvastatin Calcium 40 mg PO HS #0 Potassium Chloride 10 mg PO DAILY #0 Losartan [Cozaar] 100 mg PO HS Furosemide [Lasix] 40 mg PO DAILY Ubidecarenone [Coenzyme Q10] 100 mg PO DAILY PEG 3350 17gm PACKET [Miralax] 17 gm PO DAILY packet Citalopram Hydrobromide [Citalopram HBr] 20 mg PO DAILY #0 Metformin HCl 1,000 mg PO BIDWM #0 APAP/Diphenhydramine 500/25 [Tylenol Pm] 2 tab PO HS Bisacodyl Supp [Dulcolax] 10 mg RECTALLY DAILY PRN supp PRN Reason: Constipation Senna + Docusate [Senna Plus Tablet] 1 tab PO BID tablet Milk of Magnesia [Mom] 30 ml PO DAILY PRN udc PRN Reason: Constipation Changed Oxycodone/Acetaminophen 5/325 [Percocet 5/325] 1 tab PO Q4HR PRN #30 tablet PRN Reason: Pain Discontinued Aspirin 81 mg PO HS #0 Labetalol HCl 300 mg PO BID #0 Insulin Aspart [NovoLOG] 10 unit SQ TIDWM Insulin Glargine,Hum.rec.anlog [Lantus] 40 unit SQ HS vial Rivaroxaban [Xarelto] 20 mg PO WS Tramadol [Ultram] 50 mg PO Q4-6HR PRN PRN Reason: Pain - Disposition 03 To SNU Not [facility] (SNF) - Dismissal Complete Discharge Instructions are:: Complete
[2017-05-24] MEDS ORDERED: INSULIN ASPART 100unit/ml INJECTION SQ SCH (17:15)
[2017-05-25] MEDS ORDERED: INSULIN ASPART 100unit/ml INJECTION SQ SCH (08:00)
== END 2017-05-24 15:15 | DRG 560 ==
PROVIDERS: ADMIT Internal Medicine; ATTEND Internal Medicine